=== PATIENT | female | born 1965 | race Caucasian/White ===

== ENCOUNTER → 2017-11-21 16:46 | Outpatient (CLI) | payer OTHER, SELFPAY ==
--- NOTE | 2017-11-21 16:51 | BI_ITS ---
MAMMOGRAPHY - BILATERAL SCREENING REASON FOR EXAM: Female, 52 years old. Routine annual screening examination. PERTINENT HISTORY: Non-contributory. Remote right stereotactic breast biopsy. TECHNIQUE: Digital bilateral breast imani (3D mammographic acquisition) in the CC and MLO projections. 2-D mediolateral oblique (MLO) and craniocaudad (CC) views of both breasts were obtained. CAD: Full Field Digital Mammography with Computer Added Detection was performed. COMPARISON: Comparison is made with prior study dated May 17, 2016 and February 19, 2015. FINDINGS: Breast Composition: The breasts are heterogeneously dense, which may obscure small masses. There are no dominant masses or suspicious calcifications. A tissue clip marker is seen in the medial retroareolar region of the right breast. No other significant abnormalities are identified. There has been no significant change since the prior study. BI/SCREENING MAMM (CAD), BILAT IMPRESSION: Stable bilateral screening mammogram. Yearly follow-up mammogram recommended. (A) ASSESSMENT CATEGORY: BIRADS Category 2: Benign. A letter regarding these results will be sent to the patient by the facility within 30 days. Approximately 10% of breast cancers are not detected by mammography. A normal mammogram should not delay biopsy of a clinically suspicious abnormality. [id number] Electronically Signed: Felix Sanchez MD at 8:18 EDT Tel [phone], Service support ,
== END ==
PROVIDERS: Family Provider Family Medicine; PCP Family Medicine
DX: Z12.31 Encounter for screening mammogram for malignant neoplasm of breast (principal)
CPT/HCPCS: 77063; 77067

== ENCOUNTER → 2019-01-25 | Outpatient (CLI) | payer OTHER, SELFPAY ==
--- NOTE | 2019-01-25 08:03 | BI_ITS ---
MAMMOGRAPHY - BILATERAL SCREENING REASON FOR EXAM: Female, 53 years old. Routine annual screening examination. PERTINENT HISTORY: Non-contributory. Remote prior right stereotactic breast biopsies. TECHNIQUE: Digital bilateral breast demetra (3D mammographic acquisition) in the CC and MLO projections. 2-D mediolateral oblique (MLO) and craniocaudad (CC) views of both breasts were obtained. CAD: Full Field Digital Mammography with Computer Added Detection was performed. COMPARISON: Comparison is made with prior study dated November 21, 2017 and May 17, 2016. FINDINGS: Breast Composition: The breasts are heterogeneously dense, which may obscure small masses. There are no dominant masses or suspicious calcifications. A tissue clip marker is seen in the medial retroareolar region of the right breast. No other significant abnormalities are identified. There has been no significant change since the prior study. BI/SCREEN MAMM (CAD) W/DEMETRA BILAT IMPRESSION: Stable bilateral screening mammogram. Yearly follow-up mammogram recommended. (A) ASSESSMENT CATEGORY: BIRADS Category 1: Negative. A letter regarding these results will be sent to the patient by the facility within 30 days. Approximately 10% of breast cancers are not detected by mammography. A normal mammogram should not delay biopsy of a clinically suspicious abnormality. [id number] Electronically Signed: Felix Sanchez, at 9:39 EDT , Service support ,
== END | disposition home or self-care (01) ==
PROVIDERS: Family Provider Family Medicine; PCP Family Medicine
DX: Z12.31 Encounter for screening mammogram for malignant neoplasm of breast (principal)
CPT/HCPCS: 77063; 77067

== ENCOUNTER → 2021-12-21 | Outpatient (CLI) | payer OTHER, SELFPAY ==
--- NOTE | 2021-12-21 12:00 | BI_ITS ---
MAMMOGRAPHY - BILATERAL SCREENING REASON FOR EXAM: Female, 56 years old. Routine annual screening examination. PERTINENT HISTORY: Non-contributory. History of prior right stereotactic breast biopsies. TECHNIQUE: Digital bilateral breast demetra (3D mammographic acquisition) in the CC and MLO projections. 2-D mediolateral oblique (MLO) and craniocaudad (CC) views of both breasts were obtained. CAD: Full Field Digital Mammography with Computer Added Detection was performed. COMPARISON: Comparison is made with prior examination dated 10/19/2020 and 01/25/2019. FINDINGS: Breast Composition: The breasts are heterogeneously dense, which may obscure small masses. There are no dominant masses or suspicious calcifications. A tissue clip marker is once again seen in the retroareolar region of the right breast. No other significant abnormalities are identified. There has been no significant change since the prior study. BI/SCRN MAMM (CAD)W/DEMETRA BILAT IMPRESSION: Stable bilateral screening mammogram. Yearly follow-up mammogram recommended. (A) ASSESSMENT CATEGORY: BIRADS Category 2: Benign. A letter regarding these results will be sent to the patient by the facility within 30 days. Approximately 10% of breast cancers are not detected by mammography. A normal mammogram should not delay biopsy of a clinically suspicious abnormality. [id number] Electronically Signed: Felix Sanchez MD at 13:12 EDT ,
== END | disposition home or self-care (01) ==
LOC: OPBI 11:58
PROVIDERS: PCP Family Medicine; Referring Provider Obstetrics & Gynecology; Visit Provider Obstetrics & Gynecology
DX: Z12.31 Encounter for screening mammogram for malignant neoplasm of breast (principal)
CPT/HCPCS: 77063; 77067

== ENCOUNTER → 2022-12-30 | Outpatient (CLI) | payer OTHER, SELFPAY ==
--- NOTE | 2022-12-30 07:44 | BI_ITS ---
MAMMOGRAPHY - BILATERAL SCREENING REASON FOR EXAM: Female, 57 years old. Routine annual screening examination. PERTINENT HISTORY: Non-contributory. History of prior right stereotactic breast biopsies. TECHNIQUE: Digital bilateral breast demetra (3D mammographic acquisition) in the CC and MLO projections. 2-D mediolateral oblique (MLO) and craniocaudad (CC) views of both breasts were obtained. CAD: Full Field Digital Mammography with Computer Added Detection was performed. COMPARISON: Comparison is made with prior study dated December 21, 2021 and January 25, 2019. FINDINGS: Breast Composition: The breasts are heterogeneously dense, which may obscure small masses. There are no dominant masses or suspicious calcifications. A tissue clip marker is once again seen in the medial retroareolar region of the right breast. No other significant abnormalities are identified. There has been no significant change since the prior study. BI/SCRN MAMM (CAD)W/DEMETRA BILAT IMPRESSION: Stable bilateral screening mammogram. Yearly follow-up mammogram recommended. (A) ASSESSMENT CATEGORY: BIRADS Category 2: Benign. A letter regarding these results will be sent to the patient by the facility within 30 days. Approximately 10% of breast cancers are not detected by mammography. A normal mammogram should not delay biopsy of a clinically suspicious abnormality. [id number] Electronically Signed: Felix Sanchez MD at 9:18 EDT ,
== END | disposition home or self-care (01) ==
LOC: OPBI 07:41
PROVIDERS: PCP Family Medicine; Referring Provider Obstetrics & Gynecology; Visit Provider Obstetrics & Gynecology
DX: Z12.31 Encounter for screening mammogram for malignant neoplasm of breast (principal)
CPT/HCPCS: 77063; 77067

== ENCOUNTER → 2024-07-01 | Outpatient (CLI) | payer OTHER, SELFPAY ==
--- NOTE | 2024-07-01 15:38 | BI_ITS ---
MAMMOGRAPHY - BILATERAL SCREENING REASON FOR EXAM: Female, 58 years old. Routine annual screening examination. PERTINENT HISTORY: Non-contributory. Prior right stereotactic breast biopsies. TECHNIQUE: Digital bilateral breast demetra (3D mammographic acquisition) in the CC and MLO projections. 2-D mediolateral oblique (MLO) and craniocaudad (CC) views of both breasts were obtained. CAD: Full Field Digital Mammography with Computer Added Detection was performed. COMPARISON: Comparison is made with prior study dated December 30, 2022 and December 21, 2021. FINDINGS: Breast Composition: The breasts are heterogeneously dense, which may obscure small masses. There are no dominant masses or suspicious calcifications. A tissue clip marker is once again seen in the medial retroareolar region of the right breast. No other significant abnormalities are identified. There has been no significant change since the prior study. BI/SCRN MAMM (CAD)W/DEMETRA BILAT IMPRESSION: Stable bilateral screening mammogram. Yearly follow-up mammogram recommended. (A) ASSESSMENT CATEGORY: BIRADS Category 2: Benign. A letter regarding these results will be sent to the patient by the facility within 30 days. Approximately 10% of breast cancers are not detected by mammography. A normal mammogram should not delay biopsy of a clinically suspicious abnormality. [id number] Electronically Signed: Felix Sanchez MD at 8:40 EST ,
== END | disposition home or self-care (01) ==
LOC: OPBI 15:36
PROVIDERS: PCP Family Medicine; Referring Provider Obstetrics & Gynecology; Visit Provider Family Medicine
DX: Z12.31 Encounter for screening mammogram for malignant neoplasm of breast (principal)
CPT/HCPCS: 77063; 77067

== ENCOUNTER → 2025-07-11 | Outpatient (CLI) | payer OTHER, SELFPAY ==
--- OUTSIDE RECORDS SUMMARY | 2025-07-11 07:30 | XMS RPT_ITS | CCD ---
Author Organization [facility] Care Team Providers Care Channel Manager Name Role Phone ISRAEL CARREON Unavailable Unavailable ISRAEL CARREON Unavailable Unavailable ISRAEL CARREON Unavailable Unavailable Israel Carreon Unavailable Unavailab SANGEETHA Soria Unavailable Unavailable TERRA MENDOZA Unavailable Unavailable CHARLES MAGALLON Attending Unavailable IMCA Referring Unavailable Terra Mendoza Primary Care Unavailable CHARLES MAGALLON Admitting Unavailable CHARLES MAGALLON Attending Unavailable Terra Mendoza Primary Care Unavailable CHARLES MAGALLON Admitting Unavailable CHARLES MAGALLON Attending Unavailable Terra Mendoza Primary Care Unavailable SARAHY ALLEN Attending Unavailable Terra Mendoza Referring Unavailable ElderTerra finley Primary Care Unavailable CHARLES MAGALLON Attending Unavailable Terra Mendoza Referring Unavailable ElderTerra finley Primary Care Unavailable Terra Mendoza Referring Unavailable Terra Mendoza Primary Care Unavailable CHARLES MAGALLON Attending Unavailable Terra Mendoza Referring Unavailable ElderTerra finley Primary Care Unavailable Terra Mendoza Referring Unavailable ElderTerra finley Primary Care Unavailable CHARLES MAGALLON Attending Unavailable Terra Mendoza Referring Unavailable ElderbrockTerra Primary Care Unavailable CHARLES MAGALLON Referring Unavailable Terra Mendoza Primary Care Unavailable CHARLES MAGALLON Admitting Unavailable CHARLES MAGALLON Attending Unavailable Terra Mendoza Primary Care Unavailable Terra Mendoza Referring Unavailable Terra Mendoza Primary Care Unavailable SARAHY ALLEN Attending Unavailable Terra Mendoza Referring Unavailable Terra Mendoza Primary Care Unavailable Terra Mendoza MD Primary Care Provider [phone] Terra Mendoza MD Primary Care Provider Terra Mendoza MD Primary Care Provider Ranjit CLARIFIER.Iliana LITTLE Unavailable Scooter CLARIFIERALEX, Maurilio Unavailable Terra Mendoza Referring Unavailable Mel Telles Attending Unavailable Terra Mendoza Primary Care Unavailable Terra Mendoza Primary Care Unavailable Terra Mendoza Attending Unavailable Cande Gorman Referring Unavailable MAT CARDENASQUEHARIS Bray Referring Unavailable TERRA MENDOZA Primary Care Unavailable THERESA DACIA Asa Referring Unavailable TERRA MENDOZA Primary Care Unavailable THERESA DACIA A Attending Unavailable TERRA MENDOZA Primary Care Unavailable CANDE GORMAN Attending Unavailable TERRA MENDOZA Primary Care Unavailable Reji MORALES, Dr. Marvin Primary Care Physician Elfego MORALES, Dr. Leal Attending Physician Dr. Terra Mendoza MD Referring Provider [phone] Allergies Allergy Classification Reported Allergen(s) Allergy Type Date of Onset Reaction(s) Facility (15 sources) Contrast media; Translations: [CONTRAST DYE] Propensity to adverse reactions (disorder) 05-17-20 05 Anaphylaxis [facility] Repository (15 sources) HYDROcodone; Translations: [HYDROCODONE] Drug Allergy 07-27-19 19 Mental Status Change [facility] Repository (2 sources) Triiodobenzoic Acids Allergy to substance 11-23-19 23 [facility] (1 source) Iodinated Contrast Media Drug allergy (disorder) 04-25-20 25 [facility] Repository Medications Current Medications Medication Drug Class(es) Dates Sig (Normalized) Sig (Original) acetaminophen 325 mg oral capsule (13 sources) acetaminophen 32 5 mg cap Take 2 capsules by mouth as needed. Active Comment on above: Take 2 capsules by m outh as needed. ascorbic acid 500 mg chewable tablet (13 sources) Vitamin C take 500 mg by mouth once daily Ascorbic Acid 500 mg chew Take 500 mg by mouth once daily. Active Comment on above: Take 500 mg by mouth once daily. calcium ascorbate 500 mg oral tablet (1 source) Start: 04-25-2025 take 1 tablet by mouth once daily Ascorbate Calcium (Vitamin C) 500 mg tablet Active 500 mg PO daily April 25, 2025 12:00am Complies with drug therapy cephalexin 250 mg oral capsule (1 source) Cephalosporin Antibacterial Start: 04-25-2025 Cephalexin 250 mg capsule Active 250 mg PO .after intercourse 90 April 25, 2025 12:00am Complies with drug therapy cholecalciferol 0.025 mg oral capsule (13 sources) Vitamin D take 1 capsule by mouth once daily Cholecalciferol, Vitamin D3, 25 mcg (1,000 unit) cap Take 1,000 Units by mouth once daily. Active Comment on above: Take 1,000 Units by mouth once daily. cranberry preparation 400 mg oral capsule (4 sources) Non-Standardized Food Allergenic Extract, Non-Standardized Plant Allergenic Extract End: 12-21-2022 take 1 capsule by mouth once daily Cranberry 400 mg cap Take by mouth once daily. 0 12/21/2022 Discontinued (Other) take 1 capsule by mouth once john ly Cranberry 400 mg cap Take by mouth once daily. 0 Active Comment on above: Take by mouth once d aily. fluconazole 150 mg oral tablet (1 source) Azole Antifungal Start: 04-25-20 Fluconazole 150 mg tablet Active 150 mg PO Every 3 Days 2 April 25, 2025 12:00am take one tab, repeat 3 days later if needed Complies with drug therapy hydrOXYzine hydrochloride 25 mg oral tablet (3 sources) Antihistamine Start: 01-22-20 End: 04-21-20 take 1 tablet by mouth three times daily as needed hydrOXYzine HCl (ATARAX) 25 mg tablet Indications: JUD (generalized anxiety disorder) Take 1 tablet by mouth three times a day as needed. 90 tablet 2 01/22/2024 04/21/2024 Active ibuprofen 200 mg oral tablet (13 sources) Nonsteroidal Anti-inflammatory Drug take 1 tablet by mouth every six hours as needed ibuprofen (MOTRIN) 200 mg tablet Take 200 mg by mouth every 6 hours as needed. Active Comment on above: Take 200 mg by mouth every 6 hours as needed. Multivitamin capsule (13 sources) take 1 capsule by mouth once daily Multivitamin capsule Take 1 capsule by mouth once daily. Active take 1 capsule by mouth once john ly Multivitamin capsule Take 1 capsule by mouth once daily. 0 Active Comment on above: Take 1 capsule by [facility] once daily. Multivitamin With Iron tablet (1 source) Start: Multivitamin With Iron tablet Active 1 {tbl} PO daily April 25, 2025 12:00am Complies with drug therapy [place] 3-Lin-Nsf-Fish Oil (Fish Oil) 60-90-500 mg capsule (1 source) Start: 5 [place] 4-Nbo-Xdo-Fish Oil (Fish Oil) 60-90-500 mg capsule Active 1 NMA PO daily April 25, 2025 12:00am Complies with drug therapy Syufa-3-BPJ-EPA-Fish Oil 1,000 mg (120 mg-180 mg) cap (10 sources) take 1 capsule by mouth twice daily Ajrpn-0-JVL-EPA-Fish Oil 1,000 mg (120 mg-180 mg) cap Take 2 g by mouth twice daily. Active take 1 capsule by mouth twice da kortney Lilex-0-EUD-EPA-Fish Oil 1,000 mg (120 mg- 180 mg) cap Take 2 g by mouth twice daily. 0 Active Comment on above: Take 2 g by mouth tw ice daily. Completed/Discontinued Medications Medication Drug Class(es) Dates Sig (Normalized) Sig (Original) acetaminophen 325 mg / HYDROcodone bitartrate 5 mg oral tablet (3 sources) Opioid Agonist Start: 06-13-2016 End: 04-25-2025 Hydrocodone-Acetami nophen 1 TABLET tablet Discontinued 1 - 2 {tbl} PO EVERY 6 HOURS NEEDED as needed for Pain 12 June 13, 2016 4:14pm April 25, 2025 8:35am causes drowsiness Start: 06-13-2016 take 1 tablet by uli every six hours as needed Hydrocodone-Acetaminophen Active 1 - 2 TABLET PO EVERY 6 HOURS NEEDED June 13, 2016 4:14pm causes drowsiness Letdz-0-QZC-EPA-Fish Oil (FISH OIL) 1,000 mg (120 mg-180 mg) cap (3 sources) take 1 capsule by mouth twice daily Ippqj-3-MRQ-EPA-Fish Oil (FISH OIL) 1,000 mg (120 mg-180 mg) cap Take 2 g by mouth twice daily. 0 Active Comment on above: Take 2 g by mouth tw ice daily. phenazopyridine hydrochloride 200 mg oral tablet (6 sources) Start: 2020 End: 2021 take 1 tablet by mouth every eight hours as needed phenazopyridine (PYRIDIUM) 200 mg tablet Take 1 tablet by mouth three times daily as needed. 6 tablet 0 03/13/2021 12/21/2021 Discontinued Comment on above: Take 1 tablet by uli th three times daily as needed. Problems Active Problems Problem Classification Problem Date Documented Date Episodic/Chronic Anxiety disorders (2 sources) Generalized anxiety disorder; Translations: [Generalized anxiety disorder] 01-22-2024 Chronic Disorders of lipid metabolism (3 sources) Mixed hyperlipidemia; Translations: [Mixed hyperlipidemia] Onset: 04-28-2025 02-06-2024 Chronic Genitourinary symptoms and ill-defined conditions (20 sources) Female stress incontinence; Translations: [Stress incontinence (female) (male)] Onset: 05-21-2018 Resolved: 07-27-2018 07-20-2018 Chronic Menopausal disorders (2 sources) Atrophic vaginitis; Translations: [Postmenopausal atrophic vaginitis] 04-18-2025 Chronic Other connective tissue disease (1 source) Decrease in height; Translations: [Loss of height] 07-01-2024 Episodic Other diseases of bladder and urethra (2 sources) Overactive bladder; Translations: [Overactive bladder] 04-18-2025 Chronic Other ear and sense organ disorders (1 source) Impacted cerumen of bilateral ears; Translations: [Impacted cerumen, bilateral] Episodic Other screening for suspected conditions (not mental disorders or infectious disease) (17 sources) Patient encounter status; Translations: [Encounter for screening mammogram for malignant neoplasm of breast] Onset: 08-02-2024 Episodic Residual codes; unclassified (1 source) Postmenopausal state; Translations: [Asymptomatic menopausal state] 07-01-2024 Episodic Screening and history of mental health and substance abuse codes (2 sources) Encounter for screening examination for other mental health and behavioral disorders; Translations: [Encounter for screening for depression] Onset: 02-06-2025 Episodic Urinary tract infections (10 sources) Urinary tract infectious disease; Translations: [Urinary tract infection, site not specified] Onset: 09-27-2018 Resolved: 05-25-2019 05-25-2019 Episodic Urinary tract infections (2 sources) Urinary tract infections Onset: 09-27-2018 Past or Other Problems Problem Classification Problem Date Documented Date Episodic/Chronic Appendicitis and other appendiceal conditions (7 sources) Acute appendicitis; Translations: [Unspecified acute appendicitis] Onset: 10-08-2007 Resolved: 02-24-2011 02-24-2011 Episodic Cancer of cervix (15 sources) Atypical squamous cells of undetermined significance on cytologic smear of cervix (ASC-US); Translations: [Cervical atypism] Onset: 03-02-2018 10-07-2019 Episodic Other diseases of kidney and ureters (13 sources) Disorder of kidney and/or ureter; Translations: [Disorder of kidney and ureter, unspecified] Onset: 09-17-2007 09-17-2007 Episodic Other diseases of kidney and ureters (13 sources) Bilateral hydronephrosis ; Translations: [Unspecified hydronephrosis] Onset: 06-24-2016 06-24-2016 Episodic Results Test Name Value Interpretation Reference Range Facility LIPID PANEL, NONFASTINGon Cholesterol [Mass/Vol] 208 mg/dL High <200 [facility] Comment on above: Order Comment: Speci men Type: BLOOD SPECIMEN Ordering Facility: [facility] Address: [address] [place] [address] Result Comment: <200 mg/dL, Desirable 200-239 mg/dL, Borderline high >239 mg/dL, High Performed By: #### L IPNF #### [facility] CLIA [id number] [address] [place] [address] [place] HDL CHOLESTEROL, NF 63 mg/dL Normal >39 [facility] Comment on above: Order Comment: Speci men Type: BLOOD SPECIMEN Ordering Facility: [facility] Address: [address] [place] [address] Result Comment: 40-5 9 mg/dL, Acceptable >59 mg/dL, High: Negative risk factor for coronary heart disease <40 mg/dL, Low: Positive risk factor for coronary heart disease Performed By: #### L IPNF #### [facility] CLIA [id number] [address] [place] [address] [place] LDL CHOLESTEROL CALCULATED, NF 127 mg/dL High <100 [facility] Comment on above: Order Comment: Speci men Type: BLOOD SPECIMEN Ordering Facility: [facility] Address: [address] [place] [address] Result Comment: <100 mg/dL, Optimal 100-129 mg/dL, Near optimal/above optimal 130-159 mg/dL, Borderline high 160-189 mg/dL, High >189 mg/dL, Very high Secondary prevention optimal LDL Cholesterol levels are recommended to be <70 mg/dL LDL cholesterol is calculated using the Colin-NIH equation. Performed By: #### L IPNF #### [facility] CLIA [id number] [address] [place] [address] OF [facility] LDL/HDL RATIO, NF 2.02 mg/dL Normal <2.54 [facility] Comment on above: Order Comment: Jef portillo Type: BLOOD SPECIMEN Ordering Facility: [facility] Address: [address] [place] [address] Result Comment: Refe rence: 1. National Cholesterol Education Program ATP III Guideline At-A-Glance Quick Desk Reference: National Heart, Lung, and Blood Hawkins. National Institutes of Health. 2001: NIH Publication No. 01-3305. 2. An International Atherosclerosis Society position paper: global recommendations for the management of dyslipidemia: executive summary, Atherosclerosis. 2014: 232(2):410-413. Performed By: #### L IPNF #### [facility] CLIA [id number] [address] [place] [address] STATES [facility] NON HDL CHOL, NF 145 mg/dL High <130 [facility] Comment on above: Order Comment: Jef portillo Type: BLOOD SPECIMEN Ordering Facility: [facility] Address: [address] [place] [address] Result Comment: <130 mg/dL, Optimal 130-159 mg/dL, Near optimal/above optimal 160-189 mg/dL, Borderline high 190-219 mg/dL, High >219 mg/dL, Very high Secondary prevention optimal non HDL Cholesterol levels are recommended to be <100 mg/dL Performed By: #### L IPNF #### [facility] CLIA [id number] [address] [place] [address] OF [facility] T CHOL/HDL RATIO NF 3.30 mg/dL Normal <5.10 [facility] Comment on above: Order Comment: Speci men Type: BLOOD SPECIMEN Ordering Facility: [facility] Address: [address] [place] [address] Performed By: #### L IPNF #### [facility] CLIA [id number] [address] [place] [address] [place] TRIGLYCERIDES, NF 103 mg/dL Normal <150 [facility] Comment on above: Order Comment: Speci men Type: BLOOD SPECIMEN Ordering Facility: [facility] Address: [address] [place] [address] Result Comment: <150 mg/dL, Normal 150-199 mg/dL, Borderline high 200-499 mg/dL, High >499 mg/dL, Very high Performed By: #### L IPNF #### [facility] CLIA [id number] [address] [place] [address] [place] VLDL CHOLESTEROL, NF 18 mg/dL Normal <30 [facility] Comment on above: Order Comment: Speci men Type: BLOOD SPECIMEN Ordering Facility: [facility] Address: [address] [place] [address] Performed By: #### L IPNF #### [facility] CLIA [id number] [address] [place] [address] [place] Laboratory - Chemistry and C hemistry - challengeOrdered By: Mel Telles on 04-25-2025 Bilirubin Ql (U) Negative [facility] Glucose Ql (U) Negative [facility] Ketones Ql (U) Negative [facility] pH (U) 6 [pH] [facility] Specific gravity (U) [Rel density] 1.010 [facility] Urobilinogen (U) [Mass/Vol] 0.8569799 mg/dL [facility] Laboratory - Hematology and Cell countsOrdered By: Mel Telles on 04-25-2025 Hemoglobin Ql (U) Trace [facility] Laboratory - UrinalysisOrder ed By: Mel Telles on 04-25-2025 Nitrite Ql (U) Negative [facility] Protein Ql (U) Trace [facility] MR/Ysabel 04-25-2025 MR/GANGA [facility] [address], [address] [place] [address] OFFICE VISIT Date of Service: 04/25/25 MR#: [id number] Acct: [id number] Name: TAWANNA REYES Rep #: [id number] : 1965 Provider: Dr. Mel Garcia i, MD Age/Sex: 59/F Location: [facility] Status: Signed Intake Vital Signs 06/13/16 12:22 04/25/25 08:37 Height 5 ft 2 in 5 ft 2 in Weight: 130 lb BMI 23.8 BP 94/69 Pulse 61 Intake Visit Reasons: 12m chronic uti Chief Complaint: 12 month UTI follow up Home Health Manager Required: No Accompanied by: Self Is patient in pain?: No Allergies Iodinated Contrast Media Allergy (Verified 04/25/25 08:35) Hives Medications ???Medication ???Instructions ???Recorded ???Confirmed ???Type ascorbate calcium (vitamin C) 500 500 mg PO QDAY 04/25/25 04/25/25 History mg tablet cephalexin 250 mg capsule 250 mg PO .after intercourse #90 1 04/25/25 Rx caps fluconazole 150 mg tablet 150 mg PO Q3D #2 tabs 04/25/2505/10 Rx multivitamin with iron 1 tab PO QDAY 04/25/25 04/25/25 Hi story omega 8-ycl-fgt-fish oil 60 mg-90 1 cap PO QDAY 04/25/25 04/25/25 H istory mg-500 mg capsule (Fish Oil) Nurse's Note: No uti since last ov, patient reports she is doing well. [facility] Medical History Ruptured tubal Surgical History History of bladder surgery History of appendectomy H/O dilation and curettage Social History Smoking Status: Never smoker alcohol intake: current substance use type: does not use what type of physical activity do you participate in: none do you feel safe at home: Yes HPI HPI Urology Chief Complaint: 12 month UTI follow up Details: TAWANNA REYES, is a 59 F. She is here for follow up urinary tract infections. She has had no infections since the last visit. She has not had hematuria since her last visit. She is taking the following prevention: none. When she feels like an infection may be starting, she has left over antibiotics and she takes one. It is after intercourse. This has worked really well for her. We discussed estrogen cream again today. She does not want to do this. ROS Const Constitutional: No chills, fatigue, fever(s), headache(s), night sweats, weakness, weight change, abnormal sleep pattern or change in appetite Eyes Eyes: No change in vision ENT ENT: No headache(s) or dry mouth Resp Respiratory: No cough, chest congestion, shortness of breath or wheezing Cardio Cardiology: Positive for other (No chest pain.); No shortness of breath, irregular heart rhythm or lightheadedness Gastro GI: Positive for other (No nausea.); No abdominal pain, change in bowel habits, constipation, diarrhea or vomiting Musc Musculoskeletal: No abnormal gait Skin Skin: No yellowing of the eye, lesions, itchy eyes, rash or skin ulcer Neuro Neurology: No abnormal gait, confusion, dizziness, weakness, headache(s) or memory loss Psych Psychiatric: No abnormal sleep pattern, No change in appetite, No confusion and No memory loss Endo Endocrine: No fatigue, increased thirst/drinking or weight change Aller/Imm Allergy/Immunologic: No itchy eyes or wheezing Evin/Lymp Hematologic/Lymphati c: No easy bleeding, easy bruising or enlarged lymph nodes Exam Const General: cooperative, healthy appearing, comfortable and no acute distress HENMT Head: normocephalic and atraumatic Ears: hearing grossly normal bilaterally and external ears normal Nose: external nose normal Eyes General: appearance normal, both eyes and all related structures Neck Neck: normal visual inspection and trachea midline Chest Chest palpation inspection: normal inspection of the chest Resp Effort Inspection: normal respiratory effort, able to speak in complete sentences and symmetric chest movement Cardio Rate: regular rate GI Inspection: normal to inspection Palpation: soft and nontender General: No CVA tenderness Skin General: no rashes or lesions noted Neuro General: patient alert, patient awake, patient oriented x3 and CN's II-XI intact bilaterally Extrem General: normal to inspection Psych Appearance: grossly normal and well kempt Mental Status: mental status grossly normal Results POC Urinalysis w/Micro Office Urine Color Last Edit by Ludmila Vail on 04/25/25 08:44 Office Urine Clarity Last Edit by Ludmila Vail on 04/25/25 08:44 Office Urine Glucose Negative Last Edit by Ludmila Vail on 04/25/25 08:44 Office Urine Ketones Negative Last Edit by Ludmila Vail on 04/25/25 08:44 Office Urine Bilirubin Negative Last Edit by Ludmila Vail on 04/25/25 08:44 Office (more content not included)... Normal [facility] No Panel InformationOrdered By: Mel Telles on 04-25-2025 Urine Bacteria None Seen [facility] Urine Leukocytes Negatve [facility] Urine Microscopic RBC None Seen [facility] Urine Microscopic WBC None Seen [facility] Urine Non-Hemolyzed Blood Negative [facility] CBC W Auto Differential pane l (Bld)on 02-06-2025 Basophils (Bld) [#/Vol] 0.1 10*3/uL [facility] Basophils/100 WBC (Bld) 1.5 % [facility] Differential cell count method Nom (Bld) Auto [facility] Eosinophils (Bld) [#/Vol] 0.15 10*3/uL [facility] Eosinophils/100 WBC (Bld) 2.2 % [facility] Erythrocyte distribution width (RBC) [Ratio] 13.4 % 11.5 - 15.0 % [facility] Hematocrit (Bld) [Volume fraction] 43 % 36.0 - 46.0 % [facility] Hemoglobin (Bld) [Mass/Vol] 14.1 g/dL 11.5 - 15.5 g/dL [facility] Immature granulocytes (Bld) [#/Vol] [facility] Immature granulocytes/100 WBC (Bld) 0.1 % [facility] Lymphocytes (Bld) [#/Vol] 2.99 10*3/uL [facility] Lymphocytes/100 WBC (Bld) 44.2 % [facility] MCH (RBC) [Entitic mass] 28.4 pg 26.0 - 34.0 pg [facility] MCHC (RBC) [Mass/Vol] 32.8 g/dL 30.5 - 36.0 g/dL [facility] MCV (RBC) [Entitic vol] 86.5 fL 80.0 - 100.0 fL [facility] Monocytes (Bld) [#/Vol] 0.6 10*3/[facility] Monocytes/100 WBC (Bld) 8.9 % [facility] Neutrophils (Bld) [#/Vol] 2.91 10*3/uL [facility] Neutrophils/100 WBC (Bld) 43.1 % [facility] Nucleated RBC (Bld) [#/Vol] NINF [facility] Nucleated RBC/100 WBC (Bld) [Ratio] 0 % /100 WBC [facility] Platelet mean volume (Bld) [Entitic vol] 11.3 fL 9.0 - 12.7 fL [facility] Platelets (Bld) [#/Vol] 295 10*3/uL [facility] RBC (Bld) [#/Vol] 4.97 10*6/uL 3.90 - 5.2 0 m/uL [facility] WBC (Bld) [#/Vol] 6.76 10*3/uL [facility] Basophils (Bld) [#/Vol] 0.10 10*3/uL Normal <0.11 [facility] Comment on above: Order Comment: Speci men Type: BLOOD SPECIMEN Ordering Facility: [facility] Address: [address] [place] [address] Performed By: #### 5 7021-8 #### [facility] CLIA [id number] [address] [place] [address] [place] Basophils/100 WBC (Bld) 1.5 % Normal [facility] Comment on above: Order Comment: Speci men Type: BLOOD SPECIMEN Ordering Facility: [facility] Address: [address] [place] [address] Performed By: #### 5 7021-8 #### [facility] CLIA [id number] [address] [place] [address] [place] Differential cell count method Nom (Bld) Auto Normal [facility] Comment on above: Order Comment: Speci men Type: BLOOD SPECIMEN Ordering Facility: [facility] Address: [address] [place] [address] Performed By: #### 5 [id number] #### [facility] CLIA [id number] [address] [place] [address] [place] Eosinophils (Bld) [#/Vol] 0.15 10*3/uL Normal <0.46 [facility] Comment on above: Order Comment: Speci men Type: BLOOD SPECIMEN Ordering Facility: [facility] Address: [address] [place] [address] Performed By: #### 5 7021-8 #### [facility] CLIA [id number] [address] [place] [address] [place] Eosinophils/100 WBC (Bld) 2.2 % Normal [facility] Comment on above: Order Comment: Speci men Type: BLOOD SPECIMEN Ordering Facility: [facility] Address: [address] [place] [address] Performed By: #### 5 7021-8 #### [facility] CLIA [id number] [address] [place] [address] [place] Erythrocyte distribution width (RBC) [Ratio] 13.4 % Normal 11.5-15.0 [facility] Comment on above: Order Comment: Speci men Type: BLOOD SPECIMEN Ordering Facility: [facility] Address: [address] [place] [address] Performed By: #### 5 7021-8 #### [facility] CLIA [id number] [address] [place] [address] [place] Hematocrit (Bld) [Volume fraction] 43.0 % Normal 36.0-46.0 [facility] Comment on above: Order Comment: Speci men Type: BLOOD SPECIMEN Ordering Facility: [facility] Address: [address] [place] [address] Performed By: #### 5 7021-8 #### [facility] CLIA [id number] [address] [place] [address] [place] Hemoglobin (Bld) [Mass/Vol] 14.1 g/dL Normal 11.5-15.5 [facility] Comment on above: Order Comment: Speci men Type: BLOOD SPECIMEN Ordering Facility: [facility] Address: [address] [place] [address] Performed By: #### 5 7021-8 #### [facility] CLIA [id number] [address] [place] [address] [place] Immature granulocytes (Bld) [#/Vol] 10*3/uL Normal <0.10 [facility] Comment on above: Order Comment: Speci men Type: BLOOD SPECIMEN Ordering Facility: [facility] Address: [address] [place] [address] Performed By: #### 5 7021-8 #### [facility] CLIA [id number] [address] [place] [address] [place] Immature granulocytes/100 WBC (Bld) 0.1 % Normal [facility] Comment on above: Order Comment: Speci men Type: BLOOD SPECIMEN Ordering Facility: [facility] Address: [address] [place] [address] Performed By: #### 5 7021-8 #### [facility] CLIA [id number] [address] [place] [address] [place] Lymphocytes (Bld) [#/Vol] 2.99 10*3/uL Normal 1.00-4.00 [facility] Comment on above: Order Comment: Speci men Type: BLOOD SPECIMEN Ordering Facility: [facility] Address: [address] [place] [address] Performed By: #### 5 7021-8 #### [facility] CLIA [id number] [address] [place] [address] [place] Lymphocytes/100 WBC (Bld) 44.2 % Normal [facility] Comment on above: Order Comment: Speci men Type: BLOOD SPECIMEN Ordering Facility: [facility] Address: [address] [place] [address] Performed By: #### 5 7021-8 #### [facility] CLIA [id number] [address] [place] [address] [place] MCH (RBC) [Entitic mass] 28.4 pg Normal 26.0-34.0 [facility] Comment on above: Order Comment: Speci men Type: BLOOD SPECIMEN Ordering Facility: [facility] Address: [address] [place] [address] Performed By: #### 5 7021-8 #### [facility] CLIA [id number] [address] [place] [address] [place] MCHC (RBC) [Mass/Vol] 32.8 g/dL Normal 30.5-36.0 [facility] Comment on above: Order Comment: Speci men Type: BLOOD SPECIMEN Ordering Facility: [facility] Address: [address] [place] [address] Performed By: #### 5 7021-8 #### [facility] CLIA [id number] [address] [place] [address] [place] MCV (RBC) [Entitic vol] 86.5 fL Normal 80.0-100.0 [facility] Comment on above: Order Comment: Speci men Type: BLOOD SPECIMEN Ordering Facility: [facility] Address: [address] [place] [address] Performed By: #### 5 7021-8 #### [facility] CLIA [id number] [address] [place] [address] [place] Monocytes (Bld) [#/Vol] 0.60 10*3/uL Normal <0.87 [facility] Comment on above: Order Comment: Speci men Type: BLOOD SPECIMEN Ordering Facility: [facility] Address: [address] [place] [address] Performed By: #### 5 7021-8 #### [facility] CLIA [id number] [address] [place] [address] [place] Monocytes/100 WBC (Bld) 8.9 % Normal [facility] Comment on above: Order Comment: Speci men Type: BLOOD SPECIMEN Ordering Facility: [facility] Address: [address] [place] [address] Performed By: #### 5 7021-8 #### [facility] CLIA [id number] [address] [place] [address] [place] Neutrophils (Bld) [#/Vol] 2.91 10*3/uL Normal 1.45-7.50 [facility] Comment on above: Order Comment: Speci men Type: BLOOD SPECIMEN Ordering Facility: [facility] Address: [address] [place] [address] Performed By: #### 5 7021-8 #### [facility] CLIA [id number] [address] [place] [address] [place] Neutrophils/100 WBC (Bld) 43.1 % Normal [facility] Comment on above: Order Comment: Speci men Type: BLOOD SPECIMEN Ordering Facility: [facility] Address: [address] [place] [address] Performed By: #### 5 7021-8 #### [facility] CLIA [id number] [address] [place] [address] [place] Nucleated RBC (Bld) [#/Vol] 10*3/uL Normal <0.01 [facility] Comment on above: Order Comment: Speci men Type: BLOOD SPECIMEN Ordering Facility: [facility] Address: [address] [place] [address] Performed By: #### 5 7021-8 #### [facility] CLIA [id number] [address] [place] [address] [place] Nucleated RBC/100 WBC (Bld) [Ratio] 0.0 /100 WBC Normal [facility] Comment on above: Order Comment: Speci men Type: BLOOD SPECIMEN Ordering Facility: [facility] Address: [address] [place] [address] Performed By: #### 5 7021-8 #### [facility] CLIA [id number] [address] [place] [address] [place] Platelet mean volume (Bld) [Entitic vol] 11.3 fL Normal 9.0-12.7 [facility] Comment on above: Order Comment: Speci men Type: BLOOD SPECIMEN Ordering Facility: [facility] Address: [address] [place] [address] Performed By: #### 5 7021-8 #### [facility] CLIA [id number] [address] [place] [address] [place] Platelets (Bld) [#/Vol] 295 10*3/uL Normal 150-400 [facility] Comment on above: Order Comment: Speci men Type: BLOOD SPECIMEN Ordering Facility: [facility] Address: [address] [place] [address] Performed By: #### 5 7021-8 #### [facility] CLIA [id number] [address] [place] [address] [place] RBC (Bld) [#/Vol] 4.97 10*6/uL Normal 3.90-5.20 [facility] Comment on above: Order Comment: Speci men Type: BLOOD SPECIMEN Ordering Facility: [facility] Address: [address] [place] [address] Performed By: #### 5 7021-8 #### [facility] CLIA [id number] [address] [place] [address] [place] WBC (Bld) [#/Vol] 6.76 10*3/uL Normal 3.70-11.00 [facility] Comment on above: Order Comment: Speci men Type: BLOOD SPECIMEN Ordering Facility: [facility] Address: [address] [place] [address] Performed By: #### 5 7021-8 #### [facility] CLIA [id number] [address] [place] [address] [facility] CNOVon 02-06-2025 CNOV Office Visit (FAMPWS) TAWANNA REYES ([id number]) 1965 F Date Time Provider Department 02/06/25 10:00 AM DACIA CARDENAS During your visit today, we recorded the following information about you: Pulse Respiration Blood pressure Weight 57/minute 12/minute 102/64 61.9 kg Height 1.58 m Dacia Cardenas APRN.CNP 02/06/2025 10:31 AM Signed Chief Reason For Appointment Patient presents with: Physical Tawanna Reyes is a 59 year old female who presents for annual exam. Last office visit date: 02/06/2024 Accompanied By self only Have you had any critical events, hospital stays, ER visits, surgeries or procedures since your last visit here in our office: No Specialists/Other Healthcare Providers Seen: Patient Care Team: Terra Mendoza MD as PCP - General Maurilio Helms APRN.CNP as Book Jacket Cover Machine Operator (Family Medicine) Concerns today: None HPI Wellness visit Tawanna Reyes is a 59-year-old female presenting for an annual wellness visit, with additional concerns about low heart rate and elevated magnesium levels. Annual Wellness Exam: - Denies recent weight loss or gain, fever, chills, headaches, changes in hearing or vision, neck swelling, dyspnea, cough, wheezing, chest pain, leg swelling, palpitations, orthopnea, nausea, emesis, diarrhea, constipation, dysuria, hematuria, joint pain, rashes, itching, excessive thirst, syncope, seizures, tremors, or suicidal ideation. - No hospitalizations, ER visits, surgeries, or procedures in the past year. - History of anxiety; previously prescribed medication for anxiety, used for about a week with good effect, then discontinued. - History of allergies. - Tends to get impacted cerumen. - No recent mammogram; usually scheduled in June with gynecological visit. Bradycardia: - Resting heart rate reportedly around 60 bpm. - Concerns about whether this heart rate is too low. - Participates in high-intensity interval training at [employer]. - Reports difficulty elevating heart rate during exercise compared to peers. - Engages in 28-minute treadmill sessions, primarily power walking with occasional jogging to increase heart rate. - Heart rate reportedly decreases rapidly post-exercise. Hypermagnesemia: - Recent lab results showed elevated magnesium levels. - Consumes nuts and peanut butter; has reduced nut intake after reading about magnesium content. Active Problems ACTIVE PROBLEM LIST Mary (Stress Urinary Incontinence, Female) - 07/20/2018 Comment: Added automatically from request for surgery [id number] Atypical Squamous Cells of Undetermined Significance On Cytologic Smear of Cervix (Asc-Us) - 03/02/2018 Hydronephrosis, Bilateral - 06/24/2016 Unspecified Disorder of Kidney and Ureter - 09/17/2007 Comment: UPJ obstruction ROS: Constitutional: (?) weight loss, (?) weight gain, (?) fever, (?) chills Head: (?) headache Eyes: (?) visual changes Ears/Nose/Mouth/Thro at: (?) hearing changes Neck: (?) neck lumps, (?) neck swelling Cardiovascular: (?) chest pain, (?) palpitations, (?) lower extremity swelling, (?) orthopnea Respiratory: (?) dyspnea, (?) cough, (?) wheezing PAST MEDICAL HISTORY Diagnosis Date Snoring Stress incontinence of urine 07/16/2018 UPJ obstruction, congenital bilateral R>L Urinary tract infection with hematuria 09/27/2018 PAST SURGICAL HISTORY Procedure Laterality Date COLONOSCOPY FLX DX W/COLLJ SPEC WHEN PFRMD 01/25/2018 Colonoscopy CYSTOSCOPY 07/13/2018 with bladder sling placement; excision of sling 07/27/18 DILATION AND CURETTAGE DXAND/THER NONOBSTETRIC Dilation AND curettage, x 2 LAPAROSCOPIC APPENDECTOMY 09/17/07 PAST SURGICAL HISTORY OF 1998 Tubal , right salpingectomy Medication List Current Outpatient Medications Medication Sig Dispense Refill acetaminophen 325 mg cap Take 2 capsules by mouth as needed. Ascorbic Acid 500 mg chew Take 500 mg by mouth once daily. ibuprofen (MOTRIN) 200 mg tablet Take 200 mg by mouth every 6 hours as needed. Multivitamin capsule Take 1 capsule by mouth once daily. Ssqrl-7-EUD-EPA-Fish Oil 1,000 mg (120 mg-180 mg) cap Take 2 g by mouth twice daily. Cholecalciferol, Vitamin D3, 25 mcg (1,000 unit) cap Take 1,000 Units by mouth once daily. (Patient not taking: Reported on 02/06/2025) No current facility-administere d medications for this visit. Weight Summary: Weight Change: Body mass index is 24.78 kg/m?. Last Wt 02/06/25 : 61.9 kg (136 lb 6.4 oz) 07/01/24 : 63 kg (139 lb) 02/06/24 : 59.9 kg (132 lb) 01/22/24 : 59.9 kg (132 lb) 01/05/23 : 63 kg (139 lb) Physical Exam: General Appearance: well appearing, alert and oriented. Skin: no suspicious lesion, no rash, no open sores Head: normocephalic, no obvious masses, lesions, tenderness or abnormalities. Eyes: Anicteric sclera. Pupils are equally rou (more content not included)... Normal [facility] Comprehensive metabolic 2000 panelon 02-06-2025 Albumin [Mass/Vol] 4.6 g/dL Normal 3.9-4.9 [facility] Comment on above: Order Comment: Speci men Type: BLOOD SPECIMEN Ordering Facility: [facility] Address: [address] [place] [address] Performed By: #### 2 4323-8, LIPNF #### [facility] CLIA [id number] [address] [place] [address] [place] [address] [place] ALP [Catalytic activity/Vol] 95 U/L Normal 34-123 [facility] Comment on above: Order Comment: Speci men Type: BLOOD SPECIMEN Ordering Facility: [facility] Address: [address] [place] [address] Performed By: #### 2 4323-8, LIPNF #### [facility] CLIA [id number] [address] [place] [address] [place] ALT [Catalytic activity/Vol] 22 U/L Normal 7-38 [facility] Comment on above: Order Comment: Speci men Type: BLOOD SPECIMEN Ordering Facility: [facility] Address: [address] [place] [address] Performed By: #### 2 4323-8, LIPNF #### [facility] CLIA [id number] [address] [place] [address] [place] Anion gap [Moles/Vol] 12 mmol/L Normal 8-15 [facility] Comment on above: Order Comment: Speci men Type: BLOOD SPECIMEN Ordering Facility: [facility] Address: [address] [place] [address] Performed By: #### 2 4323-8, LIPNF #### [facility] CLIA [id number] [address] [place] [address] [place] AST [Catalytic activity/Vol] 22 U/L Normal 13-35 [facility] Comment on above: Order Comment: Speci men Type: BLOOD SPECIMEN Ordering Facility: [facility] Address: [address] [place] [address] Performed By: #### 2 4323-8, LIPNF #### [facility] CLIA [id number] [address] [place] [address] [place] Bilirubin [Mass/Vol] 0.4 mg/dL Normal 0.2-1.3 [facility] Comment on above: Order Comment: Speci men Type: BLOOD SPECIMEN Ordering Facility: [facility] Address: [address] [place] [address] Performed By: #### 2 4323-8, LIPNF #### [facility] CLIA [id number] [address] [place] [address] [place] Calcium [Mass/Vol] 9.5 mg/dL Normal 8.5-10.2 [facility] Comment on above: Order Comment: Speci men Type: BLOOD SPECIMEN Ordering Facility: [facility] Address: [address] [place] [address] Performed By: #### 2 4323-8, LIPNF #### [facility] CLIA [id number] [address] [place] [address] [place] Chloride [Moles/Vol] 102 mmol/L Normal 98-107 [facility] Comment on above: Order Comment: Speci men Type: BLOOD SPECIMEN Ordering Facility: [facility] Address: [address] [place] [address] Performed By: #### 2 4323-8, LIPNF #### [facility] CLIA [id number] [address] [place] [address] [place] CO2 [Moles/Vol] 24 mmol/L Normal 22-30 [facility] Comment on above: Order Comment: Speci men Type: BLOOD SPECIMEN Ordering Facility: [facility] Address: [address] [place] [address] Performed By: #### 2 4323-8, LIPNF #### [facility] CLIA [id number] [address] [place] [address] [place] Creatinine [Mass/Vol] 0.80 mg/dL Normal 0.58-0.96 [facility] Comment on above: Order Comment: Speci men Type: BLOOD SPECIMEN Ordering Facility: [facility] Address: [address] [place] [address] Performed By: #### 2 4323-8, LIPNF #### [facility] CLIA [id number] [address] [place] [address] [place] eGFRcr SerPlBld CKD-EPI 2020 84 mL/min/1.73m??? Normal >=60 [facility] Comment on above: Order Comment: Jef portillo Type: BLOOD SPECIMEN Ordering Facility: [facility] Address: [address] [place] [address] Result Comment: Stefania mated Glomerular Filtration Rate (eGFR) is calculated using the 2020 CKD-EPI creatinine equation. This equation utilizes serum creatinine, sex, and age as parameters. The creatinine assay has traceable calibration to isotope dilution-mass spectrometry. Refer to KDIGO guidelines for clinical interpretation. In patients with unstable renal function, e.g. those with acute kidney injury, the eGFR may not accurately reflect actual GFR. Performed By: #### 2 4323-8, LIPNF #### [facility] CLIA [id number] [address] [place] [address] [place] Glucose [Mass/Vol] 93 mg/dL Normal 74-99 [facility] Comment on above: Order Comment: Jef portillo Type: BLOOD SPECIMEN Ordering Facility: [facility] Address: [address] [place] [address] Result Comment: The [place] Diabetes Association (ADA) provides guidance for cutoff values for fasting glucose and random glucose. The ADA defines fasting as no caloric intake for at least 8 hours. Fasting plasma glucose results between 100 to 125 mg/dL indicate increased risk for diabetes (prediabetes). Fasting plasma glucose results greater than or equal to 126 mg/dL meet the criteria for diagnosis of diabetes. In the absence of unequivocal hyperglycemia, results should be confirmed by repeat testing. In a patient with classic symptoms of hyperglycemia or hyperglycemic crisis, random plasma glucose results greater than or equal to 200 mg/dL meet the criteria for diagnosis of diabetes. Reference: Standards of Medical Care in Diabetes 2016, British Diabetes Association. Diabetes Care. 2016.39(Suppl 1). Performed By: #### 2 4323-8, LIPNF #### [facility] CLIA [id number] [address] [place] [address] [place] Potassium [Moles/Vol] 4.3 mmol/L Normal 3.7-5.1 [facility] Comment on above: Order Comment: Jef portillo Type: BLOOD SPECIMEN Ordering Facility: [facility] Address: [address] [place] [address] Performed By: #### 2 4323-8, LIPNF #### [facility] CLIA [id number] [address] [place] [address] [place] Protein [Mass/Vol] 7.1 g/dL Normal 6.3-8.0 [facility] Comment on above: Order Comment: Speci men Type: BLOOD SPECIMEN Ordering Facility: [facility] Address: [address] [place] [address] Performed By: #### 2 4323-8, LIPNF #### [facility] CLIA [id number] [address] [place] [address] [place] Sodium [Moles/Vol] 138 mmol/L Normal 136-144 [facility] Comment on above: Order Comment: Speci men Type: BLOOD SPECIMEN Ordering Facility: [facility] Address: [address] [place] [address] Performed By: #### 2 4323-8, LIPNF #### [facility] CLIA [id number] [address] [place] [address] [place] Urea nitrogen [Mass/Vol] 12 mg/dL Normal 7-21 [facility] Comment on above: Order Comment: Speci men Type: BLOOD SPECIMEN Ordering Facility: [facility] Address: [address] [place] [address] Performed By: #### 2 4323-8, LIPNF #### [facility] CLIA [id number] [address] [place], [place] [address] [place] LIPID PANEL, NONFASTINGon Cholesterol [Mass/Vol] 259 mg/dL High <200 [facility] Comment on above: Order Comment: Speci men Type: BLOOD SPECIMEN Ordering Facility: [facility] Address: [address] [place] [address] Result Comment: <200 mg/dL, Desirable 200-239 mg/dL, Borderline high >239 mg/dL, High Performed By: #### 2 4323-8, LIPNF #### [facility] CLIA [id number] [address] [place] [address] [place] HDL CHOLESTEROL, NF 59 mg/dL Normal >39 [facility] Comment on above: Order Comment: Jef portillo Type: BLOOD SPECIMEN Ordering Facility: [facility] Address: [address] [place] [address] Result Comment: 40-5 9 mg/dL, Acceptable >59 mg/dL, High: Negative risk factor for coronary heart disease <40 mg/dL, Low: Positive risk factor for coronary heart disease Performed By: #### 2 4323-8, LIPNF #### [facility] CLIA [id number] [address] [place] [address] LDL CHOLESTEROL CALCULATED, NF 180 mg/dL High <100 [facility] Comment on above: Order Comment: Jef bandar Type: BLOOD SPECIMEN Ordering Facility: [facility] Address: [address] [place] [address] Result Comment: <100 mg/dL, Optimal 100-129 mg/dL, Near optimal/above optimal 130-159 mg/dL, Borderline high 160-189 mg/dL, High >189 mg/dL, Very high Secondary prevention optimal LDL Cholesterol levels are recommended to be <70 mg/dL LDL cholesterol is calculated using the Colin-NIH equation. Performed By: #### 2 4323-8, LIPNF #### [facility] CLIA [id number] [address] [place] [address] [place] LDL/HDL RATIO, NF 3.05 mg/dL High <2.54 [facility] Comment on above: Order Comment: Mymarlee portillo Type: BLOOD SPECIMEN Ordering Facility: [facility] Address: [address] [place] [address] Result Comment: Lemuel savage: 1. National Cholesterol Education Program ATP III Guideline At-A-Glance Quick Desk Reference: National Heart, Lung, and Blood Hawkins. National Institutes of Health. 2001: NIH Publication No. 01-3305. 2. An International Atherosclerosis Society position paper: global recommendations for the management of dyslipidemia: executive summary, Atherosclerosis. 2014: 232(2):410-413. Performed By: #### 2 4323-8, LIPNF #### [facility] CLIA [id number] [address] [place] [address] [place] NON HDL CHOL, NF 200 mg/dL High <130 [facility] Comment on above: Order Comment: Jef portillo Type: BLOOD SPECIMEN [facility] [facility] Address: [address] [place] [address] Result Comment: <130 mg/dL, Optimal 130-159 mg/dL, Near optimal/above optimal 160-189 mg/dL, Borderline high 190-219 mg/dL, High >219 mg/dL, Very high Secondary prevention optimal non HDL Cholesterol levels are recommended to be <100 mg/dL Performed By: #### 2 4323-8, LIPNF #### [facility] CLIA [id number] [address] [place] [address] OF [facility] T CHOL/HDL RATIO NF 4.39 mg/dL Normal <5.10 [facility] Comment on above: Order Comment: Jef portillo Type: BLOOD SPECIMEN Ordering Facility: [facility] Address: [address] [place] [address] Performed By: #### 2 4323-8, LIPNF #### [facility] CLIA [id number] [address] [place] [address] OF [place] TRIGLYCERIDES, NF 115 mg/dL Normal <150 [facility] Comment on above: Order Comment: Jef portillo Type: BLOOD SPECIMEN [facility]ing Facility[facility] Address: [address] [place] [address] Result Comment: <150 mg/dL, Normal 150-199 mg/dL, Borderline high 200-499 mg/dL, High >499 mg/dL, Very high Performed By: #### 2 4323-8, LIPNF #### [facility] CLIA [id number] [address] [place] [address] STATES [place] VLDL CHOLESTEROL, NF 23 mg/dL Normal <30 [facility] Comment on above: Order Comment: Speci men Type: BLOOD SPECIMEN Ordering Facility: [facility] Address: [address] [place] [address] Performed By: #### 2 4323-8, LIPNF #### [facility] CLIA [id number] [address] [place] [address] OF [place] CNPNon 07-02-2024 CNPN Telephone (FAMPWS) TAWANNA REYES ([id number]) 1965 F Date Time Provider Department 07/02/24 [facility] During your visit today, we recorded the following information about you: Misa Gomez MA 07/02/2024 10:26 AM Signed Pt had mammogram done at [facility]. Report attached. View External Imaging - Mammography [ID [id number]] ALO Troncoso Mark D, MD 07/02/2024 11:27 AM Signed Mammogram is normal; repeat in one year MD Omar Kimble Rilee, MA 07/02/2024 12:48 PM Signed Call to pt and notified her of results and recommendations below from Provider. Pt verbalized understanding. Lindy Buchanan MA Allergies As of Date: 07/02/2024 Noted Allergy Reaction CONTRAST DYE 05/17/2005 10 - Anaphylaxis HYDROCODONE 07/27/2018 1 - Mental Status Change Comments: hallucinations, makes me loony. Date Reviewed: 07/01/2024 Reviewed by: Cande Gorman MD - Fully Assessed Reason for Visit: Results [95] Cmt: Mammogram done at [facility] Prescriptions as of 07/02/2024 - acetaminophen 325 mg cap Take 2 capsules by mouth as needed. - Ascorbic Acid 500 mg chew Take 500 mg by mouth once daily. - ibuprofen (MOTRIN) 200 mg tablet Take 200 mg by mouth every 6 hours as needed. - Multivitamin capsule Take 1 capsule by mouth once daily. - Qpgcj-8-YDO-EPA-Fish Oil 1,000 mg (120 mg-180 mg) cap Take 2 g by mouth twice daily. - Cholecalciferol, Vitamin D3, 25 mcg (1,000 unit) cap Take 1,000 Units by mouth once daily. Meds Comments as of 02/14/2018: Vitamin B-12 daily when remembers Problem List As Of Date 07/02/2024 Noted Resolved RENAL AND URETERAL DIS NOS [N28.9] 09/17/2007 APPENDICITIS ACUTE GANGRENOUS [K35.80] 10/08/2007 02/24/2011 Hydronephrosis, bilateral [N13.30] 06/24/2016 Stress incontinence, female [N39.3] 05/21/2018 07/13/2018 Stress incontinence of urine [N39.3] 07/16/2018 07/27/2018 MARY (stress urinary incontinence, female) [N39.*07/20/2018 Urinary tract infection with hematuria [N39.0, *09/27/2018 05/25/2019 Atypical squamous cells of undetermined signifi*03/02/2018 Encounter Status:Closed by LINDY BUCHANAN on 07/02/24 [facility] CNOVon 07-01-2024 CNOV Office Visit (OBGYWM) TAWANNA REYES ([id number]) 1965 F Date Time Provider Department 07/01/24 2:20 PM CANDE GORMAN OBGYWM During your visit today, we recorded the following information about you: Weight Height 63 kg 1.556 m Cande Gorman MD 07/01/2024 2:39 PM Signed Tawanna is a 58 year old who presents for an annual gynecologic exam without complaints. Postmenopausal: yes HRT use: No. Last Pap: 10/10/2019 normal HPV: 10/10/2019 negative History of abnormal pap: No Last mammogram: 2023 pending History of abnormal mammogram: No Sexually active: Yes OB History T2 L2 SAB2 IAB0 Ectopic1 Multiple0 Live Births2 Liability Claims Representative History LMP: 01/20/2021 (Approximate), Postmenopausal Age at Menarche: Age at First : Age at Menopause: Liability Claims Representative History Comments: Sexual Activity: Yes; Male Contraception: No contraception data on record PAST MEDICAL HISTORY Diagnosis Date Snoring Stress incontinence of urine 07/16/2018 UPJ obstruction, congenital bilateral R>L Urinary tract infection with hematuria 09/27/2018 PAST SURGICAL HISTORY Procedure Laterality Date COLONOSCOPY FLX DX W/COLLJ SPEC WHEN PFRMD 01/25/2018 Colonoscopy CYSTOSCOPY 07/13/2018 with bladder sling placement; excision of sling 07/27/18 DILATION AND CURETTAGE DXAND/THER NONOBSTETRIC Dilation AND curettage, x 2 LAPAROSCOPIC APPENDECTOMY 09/17/07 PAST SURGICAL HISTORY OF 1999 Tubal , right salpingectomy FAMILY HISTORY Problem Relation Age of Onset Cancer Father Bladder SOCIAL HISTORY Social History Tobacco Use Smoking status: Never Smokeless tobacco: Never Vaping Use Vaping status: Never Used Substance Use Topics Alcohol use: Yes Comment: rarely Drug use: No REVIEW OF SYSTEMS Abdomen: No abdominal pain, nausea, vomiting, diarrhea, or constipation. No bloating, early satiety, indigestion, or increased flatulence. Bladder: No dysuria, gross hematuria, urinary frequency, urinary urgency, or incontinence Breast: No breast lumps, nipple d/c, overlying skin changes, redness or skin retraction Allergies and current medication updated:Yes SENSITIVE EXAM: The sensitive examination was discussed with the Patient or Patient's Authorized Timber Harvester Operator. As applicable, any other physician, advance practice provider, medical student, or other health professional student that will be observing or involved in the sensitive examination for educational or training purposes was discussed with the Patient or Authorized Timber Harvester Operator. The Patient or Authorized Timber Harvester Operator has agreed to proceed with the sensitive examination. (Sensitive examination includes inspection and/or palpation of the breasts, pelvis, prostate and anorectal regions). EXAM: Ht 5' 1.25 (1.56m) Wt 139 lb (63.1kg) LMP 01/20/2021 BMI 26.04 kg/(m2). GENERAL: pleasant, female in no apparent distress HEENT: Normocephalic, atraumatic, mucus membranes moist, and no lesions NECK: Supple, full range of motion, no adenopathy, and thyroid normal DERMATOLOGY: Normal, without lesions, non-icteric, and non-hirsute BREAST: soft, non-tender, symmetric, no dominant mass, normal nipple-areolar complex, no lymphadenopathy, and no nipple discharge CHEST: Normal inspiratory effort ABDOMEN: soft, non-tender, and no masses PELVIC: external genitalia normal, normal Bartholin's glands, urethra, [place]'s glands, no vulvar lesions, no cervical lesions, good vaginal support, physiologic discharge present, normal appearing perineal body and perianal region BIMANUAL: uterus normal size, shape and consistency, no adnexal masses, and non-tender RECTOVAGINAL: deferred. NEURO: alert and oriented x3,exam grossly non-focal EXTREMITIES: normal ASSESSMENT/PLAN: 1) Health maintenance: Pap done with HPV. Mammogram ordered Colon cancer screening: up to date with screening BMD: up to date 2) Follow up one year or sooner as needed MD Lyle Loja Rebecca L, MD 07/01/2024 2:34 PM Signed BONE MINERAL DENSITY PATIENT INSTRUCTIONS = Bone mineral density testing measures the amount of calcium in certain parts of your bones. This information determines how strong your bones are. The test is used to detect osteoporosis, a disease in which the bone's mineral content and density are low, increasing a person's risk of fractures. The lumbar spine (lower back) and the hip are the skeletal sites usually examined. For the test, remember that: 1. You cannot take this test if you are . 2. Eat a normal diet on the day of the test. 3. Take your medications as you normally would. 4. DO NOT take calcium supplements (such as Tums) for 24 hours before the test. 5. On the day of the test, leave valuables (jewelry or credit cards) at home. 6. The zoila (more content not included)... Normal [facility] HIGH RISK HUMAN PAPILLOMA LORRAINE (HPV), PCR FOR DETECTION AND GENOTYPINGon 07-01-2024 HPV 16 Ag Ql (Unsp spec) Not detected Normal Not detected [facility] Comment on above: Order Comment: Speci men Type: FLUID SPECIMEN [facility] Facility[facility] Address: [address] [place] [address] Performed By: #### H PVHRT #### [facility] CLIA [id number] [address] [place] [address] [place] HPV 18 Ag Ql (Unsp spec) Not detected Normal Not detected [facility] Comment on above: Order Comment: Speci men Type: FLUID SPECIMEN Ordering Facility: [facility] Address: [address] [place] [address] Performed By: #### H PVHRT #### [facility] CLIA [id number] [address] [place] [address] [place] HPV 31+33+35+39+45+51+52+5 6+58+59+66+68 DNA URSULA+probe Ql (Cvx) Not detected Normal Not detected [facility] Comment on above: Order Comment: Speci men Type: FLUID SPECIMEN Ordering Facility: [facility] Address: [address] [place] [address] Result Comment: High Risk HPV Other Type includes HPV types 31, 33, 35, 39, 45, 51, 52, 56, 58, 59, 66 and 68. Performed By: #### H PVHRT #### [facility] CLIA [id number] [address] [place] [address] [place] PAP TESTon 07-01-2024 ADEQUACY Satisfactory for interpretation. Normal [facility] Comment on above: Order Comment: Speci men Type: FLUID SPECIMEN [facility]ing Facility: [facility] Address: [address] [place] [address] Performed By: #### L [id number] #### [facility] CLIA [id number] [address] [place] [address] [place] CASE REPORT Normal [facility] Comment on above: Order Comment: Speci men Type: FLUID SPECIMEN Ordering Facility: [facility] Address: [address] [place] [address] Result Comment: Gyne cologic Cytology Report Case: [id number] Authorizing Provider: Cande Gorman MD Collected: 07/01/2024 02:48 PM Ordering Location: OB/Gynecology Received: 07/01/2024 04:29 PM First Screen: Aramouni, Yudith, CT, ASCP Specimen: Pap Test, ThinPrep, Cervix Performed By: #### L [id number] #### [facility] CLIA [id number] [address] [place] [address] [place] CLINICAL HISTORY, CYTOLOGY, GROCERY CLERK MARKING Routine Exam Normal [facility] Comment on above: Order Comment: Speci men Type: FLUID SPECIMEN Ordering Facility: [facility] Address: [address] [place] [address] Result Comment: Post Menopausal Performed By: #### L [id number] #### [facility] CLIA [id number] [address] [place] [address] [place] CYTOLOGY PAP OTHER INTERPRETATION Atrophic specimen. Normal [facility] Comment on above: Order Comment: Speci men Type: FLUID SPECIMEN [facility]ing Facility: [facility] Address: [address] [place] [address] Performed By: #### L [id number] #### [facility] CLIA [id number] [address] [place] [address] [place] FINAL PERFORMING LAB Normal [facility] Comment on above: Order Comment: Speci men Type: FLUID SPECIMEN Ordering Facility: [facility] Address: [address] [place] [address] Result Comment: Tech nical component, software support representative screening performed at [facility], [address] [place], [place] [id number] CLIA# [id number] Diagnostic interpretation performed at [facility], [address] [place] [address] CLIA# [id number] Shaker Repairer: Zelalem Lewis M.D. Performed By: #### L [id number] #### [facility] CLIA [id number] [address] [place] [address] [place] INTERPRETATION, CYTOLOGY, GROCERY CLERK MARKING Normal [facility] Comment on above: Order Comment: Speci men Type: FLUID SPECIMEN Ordering Facility: [facility] Address: [address] [place] [address] Result Comment: Nega tive for intraepithelial lesion or malignancy. Performed By: #### L [id number] #### [facility] CLIA [id number] [address] [place] [address] [place] PAP DISCLAIMER COMMENT The Pap Smear is a screening test for cervical cancer. False negative results occur with all screening tests, emphasizing the need for rescreening at recommended intervals, and clinical correlation. Normal [facility] Comment on above: Order Comment: Speci men Type: FLUID SPECIMEN Ordering Facility: [facility] Address: [address] [place] [address] Performed By: #### L [id number] #### [facility] CLIA [id number] [address] [place] [address] [place] PAP PUMP REBUILDER COMMENT This specimen has been analyzed by the ThinPrep Imaging System, an automated imaging and review system, which assists the laboratory in evaluating cells on ThinPrep Pap tests. Following automated imaging, selected chavez from every slide are reviewed by a software support representative. Normal [facility] Comment on above: Order Comment: Speci men Type: FLUID SPECIMEN [facility]ing Facility: [facility] Address: [address] [place] [address] Performed By: #### L [id number] #### [facility] CLIA [id number] [address] [place] [address] [place] SCRN MAMM (CAD)W/DEMETRA BILATo n 07-01-2024 SCRN MAMM (CAD)W/DEMETRA BILAT [facility] Imaging Services [address] [place] [id number] SCRN MAMM (CAD)W/DEMETRA BILAT MR#: [id number] Acct: [id number] Name: TAWANNA REYES Rep #: [id number] : 1965 F 58 From: Felix armando MD PCP: Dr. Terra Mendoza MD Status: [facility] Study: SCRN MAMM (CAD)W/DEMETRA BILAT Date of Exam: 06/16 01/07 Exam# [id number] Ordering Dr: Terra Mendoza MD [id number] MAMMOGRAPHY - BILATERAL SCREENING REASON FOR EXAM: Female, 58 years old. Routine annual screening examination. PERTINENT HISTORY: Non-contributory. Prior right stereotactic breast biopsies. TECHNIQUE: Digital bilateral breast demetra (3D mammographic acquisition) in the CC and MLO projections. 2-D mediolateral oblique (MLO) and craniocaudad (CC) views of both breasts were obtained. CAD: Full Field Digital Mammography with Computer Added Detection was performed. COMPARISON: Comparison is made with prior study dated December 30, 2022 and December 21, 2021. FINDINGS: Breast Composition: The breasts are heterogeneously dense, which may obscure small masses. There are no dominant masses or suspicious calcifications. A tissue clip marker is once again seen in the medial retroareolar region of the right breast. No other significant abnormalities are identified. There has been no significant change since the prior study. BI/SCRN MAMM (CAD)W/DEMETRA BILAT IMPRESSION: Stable bilateral screening mammogram. Yearly follow-up mammogram recommended. (A) ASSESSMENT CATEGORY: BIRADS Category 2: Benign. A letter regarding these results will be sent to the patient by the facility within 30 days. Approximately 10% of breast cancers are not detected by mammography. A normal mammogram should not delay biopsy of a clinically suspicious abnormality. [id number] Electronically Signed: Felix Sanchez MD at 8:40 EST , CC: Dr. Terra Mendoza MD Home Care Assistant: Signed Normal [facility] 02-05-2019 CNPN Telephone (UROLAE) TAWANNA REYES ([id number]) 1965 F Date Time Provider Department 02/05/19 CHARLES MAGALLON JR During your visit today, we recorded the following information about you: Humera Turner [facility] 02/05/2019 8:48 AM Signed ----- Message from Charles Magallon Jr. sent at 02/05/2019 8:47 AM EDT ----- Let pt know that urine cx is negative Humera Turner [facility] 02/05/2019 8:50 AM Signed lmom for pt to call back to give her, her results. Humera Turner [facility] Alejandra Wilhelm [facility] 02/05/2019 1:32 PM Signed Left message notifying pt of results and informed them to call back with any further questions. Alejandra Wilhelm [facility] Janak Murphy [facility] 02/05/2019 1:47 PM Signed Spoke with pt and advised of the results below. Janak Murphy [facility] Allergies As of Date: 02/05/2019 Noted Allergy Reaction CONTRAST DYE 05/17/2005 10 - Anaphylaxis HYDROCODONE 07/27/2018 1 - Mental Status Change Comments: hallucinations, makes me loony. Date Reviewed: 11/13/2018 Reviewed by: Charles Magallon Jr. - Fully Assessed Reason for Visit: Results [95] Prescriptions as of 02/05/2019 Sig: ACETAMINOPHEN 325 MG CAPSULE Take 2 capsules by mouth once* ASCORBIC ACID (VITAMIN C) 500* Take 500 mg by mouth once john* IBUPROFEN 200 MG TABLET Take 200 mg by mouth every 6 * CRANBERRY 400 MG CAPSULE Take by mouth once daily. MULTIVITAMIN CAPSULE Take 1 capsule by mouth once * OMEGA 4-VHQ-JVO-FISH OIL 1,00* Take 2 g by mouth twice daily. CHOLECALCIFEROL (VITAMIN D3) * Take 1,000 Units by mouth onc* Problem List As Of Date 02/05/2019 Noted Resolved RENAL AND URETERAL DIS NOS [N28.9] INVALID FOR* More... APPENDICITIS ACUTE GANGRENOUS [K35.80] INVALID FOR*02/24/2011 Hydronephrosis, bilateral [N13.30] INVALID FOR* Stress incontinence, female [N39.3] INVALID FOR*07/13/2018 More... Stress incontinence of urine [N39.3] INVALID FOR*07/27/2018 MARY (stress urinary incontinence, female) [N39.*INVALID FOR* More... Urinary tract infection with hematuria [N39.0, *INVALID FOR* Encounter Status:Closed by ALEJANDRA WILHELM CMA on 02/05/19 [facility] Joelle 10-09-2018 [facility] Telephone (AKURFL) TAWANNA REYES ([id number]) 1965 F Date Time Provider Department 10/09/18 SARAHY ALLEN) RAMANDEEP During your visit today, we recorded the following information about you: Alejandra Wilhelm CMA 10/09/2018 9:36 AM Signed Pt called asking about the ABX you prescribed - the bottle states 1 twice a day 30 pills no refills - so that's what she has been doing - however pt thought you wanted her on it for 30 days total Please advise Alejandra Allen PA-C 10/09/2018 10:58 AM Signed Please call pt, have pt take only once daily until next appointment. MIKE Bedoya CMA 10/09/2018 11:04 AM Signed Pt states she has only has 1 pill left - she has been 2 a day Alejandra Allen PA-C 10/09/2018 12:34 PM Signed Please call pt, correct prescription of macrobid sent to pharmacy. MIKE Bedoya [facility] 10/09/2018 12:46 PM Signed Left detailed message for pt. Mayur Souza MA 10/18/2018 8:51 AM Signed Pt called in and wants to know if she should be taking the medication for six weeks instead of 4 I explained to the pt that you would like for her to complete the Antibiotic until her next Appt. Pt states she would like to change her appointment because she don't think it will show if the infection is gone within time period. Please advise. Princess Allen PA-C 10/18/2018 1:16 PM Signed I only want pt on macrobid for one month. MIKE Bedoya MA 10/19/2018 9:09 AM Signed Left Vm for pt to return call regarding below. Princess Lopez [facility] 10/22/2018 10:20 AM Signed Pt aware to take Macrobid for only 30 days total Allergies As of Date: 10/09/2018 Noted Allergy Reaction CONTRAST DYE 05/17/2005 10 - Anaphylaxis HYDROCODONE 07/27/2018 1 - Mental Status Change Comments: hallucinations, makes me loony. Date Reviewed: 09/27/2018 Reviewed by: Sarahy Allen - Fully Assessed Reason for Visit: Medication Question [5018] Order(s):nitrofurant oin monohydrate and macrocrystal (MACROBID) 100 mg capsuleTake 1 capsule by mouth daily at bedtime. with food for thirty(30) days.Disp: 30 capsuleRfl: 1 Prescriptions as of 10/09/2018 Sig: NITROFURANTOIN MONOHYDRATE AND * Take 1 capsule by mouth daily* ACETAMINOPHEN 325 MG CAPSULE Take 2 capsules by mouth once* ASCORBIC ACID (VITAMIN C) 500* Take 500 mg by mouth once john* IBUPROFEN 200 MG TABLET Take 200 mg by mouth every 6 * CRANBERRY 400 MG CAPSULE Take by mouth once daily. MULTIVITAMIN CAPSULE Take 1 capsule by mouth once * OMEGA 5-WHJ-ERI-FISH OIL 1,00* Take 2 g by mouth twice daily. CHOLECALCIFEROL (VITAMIN D3) * Take 1,000 Units by mouth onc* Problem List As Of Date 10/09/2018 Noted Resolved RENAL AND URETERAL DIS NOS [N28.9] INVALID FOR* More... APPENDICITIS ACUTE GANGRENOUS [K35.80] INVALID FOR*02/24/2011 Hydronephrosis, bilateral [N13.30] INVALID FOR* Stress incontinence, female [N39.3] INVALID FOR*07/13/2018 More... Stress incontinence of urine [N39.3] INVALID FOR*07/27/2018 MARY (stress urinary incontinence, female) [N39.*INVALID FOR* More... Urinary tract infection with hematuria [N39.0, *INVALID FOR* Prescriptions ordered this encounter Disp Refills Start End NITROFURANTOIN MONOHYDRATE AND MACROCR* 30 c* 1 10/09/2018 11/08/2018 Route: ORAL Sig: Take 1 capsule by mouth daily at bedtime. with food for thirty(30) days. Medications Discontinued During This Encounter nitrofurantoin monohydrate and macro* 30 c* 0 09/27/2018 10/09/2018 Route: ORAL Sig: Take 1 capsule by mouth twice daily. Disc: Reason for discontinue is not on file. Encounter Status:Closed by MAYUR YIP CMA on 10/09/18 [facility] DEANDREon 09-27-2018 CNOV Office Visit (AKURFL) TAWANNA REYES ([id number]) 1965 F Date Time Provider Department 09/27/18 3:15 PM SARAHY ALLEN During your visit today, we recorded the following information about you: Blood pressure Weight Height 118/78 61.2 kg 1.575 m Sarahy Allen PA-C 09/27/2018 4:26 PM Signed ESTABLISHED PATIENT OFFICE VISIT HISTORY OF PRESENT ILLNESS: Tawanna Reyes is a 53 year old female, Ht 157.5 cm (5' 2) BMI 24.69 kg/m2 with a PMH significant for recent bout of uti's since sling surgery. Pt reports bladder pressure, pain and dysuria. Pt has been on 3 different antibiotics, feels better while on the antibiotic, then symptoms return. No fever, chills. Pt reports occational specks of blood in urine. . LAB: Creatinine Date Value Ref Range Status 06/28/2016 0.84 0.58 - 0.96 mg/dL Final No results found for: PSA Glucose, Urine (mg/dL) Date Value 02/14/2018 Neg Bilirubin, Urine (no units) Date Value 02/14/2018 Neg Ketones, Urine (no units) Date Value 02/14/2018 Neg Specific [place], Ur (no units) Date Value 02/14/2018 1.005 Hemoglobin/Blood,Ur (no units) Date Value 02/14/2018 Small pH, Urine (no units) Date Value 02/14/2018 6.5 Protein, Urine (mg/dL) Date Value 02/14/2018 Neg Urobilinogen, Urine (EU) Date Value 02/14/2018 Neg Nitrites (no units) Date Value 02/14/2018 Neg Leukocytes (no units) Date Value 02/14/2018 Mod Color/Appearance (comment:) Date Value 02/14/2018 Lt. Yellow/Cloudy MEDICATIONS: acetaminophen (TYLENOL) 325 mg cap Take 2 capsules by mouth once daily. Ascorbic Acid (VITAMIN C) chew Take 500 mg by mouth once daily. ibuprofen (ADVIL) 200 mg tablet Take 200 mg by mouth every 6 hours as needed. Cranberry 400 mg cap Take by mouth once daily. Multivitamin capsule Take 1 capsule by mouth once daily. Urlfw-7-GBR-EPA-Fish Oil (FISH OIL) 1,000 mg (120 mg-180 mg) cap Take 2 g by mouth twice daily. Cholecalciferol, Vitamin D3, (VITAMIN D) 1,000 unit cap Take 1,000 Units by mouth once daily. Review of Systems Constitutional: Negative for chills, fatigue and fever. Respiratory: Negative for shortness of breath and wheezing. Gastrointestinal: Negative for abdominal pain, constipation, diarrhea and nausea. Genitourinary: See HPI Neurological: Negative for dizziness, light-headedness and headaches. Psychiatric/Behavior al: Negative for behavioral problems. The patient is not nervous/anxious. 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 ASSESSMENT/PLAN: 1. Urinary tract infection with hematuria, site unspecified - ICD9: 599.0, 599.70, ICD10: N39.0, R31.9 recurrent macrobid for one month Azo for symptoms Probiotic Sarahy Allen PA-C Referring Provider: TERRA MENDOZA [[id number]] Allergies As of Date: 09/27/2018 Noted Allergy Reaction CONTRAST DYE 05/17/2005 10 - Anaphylaxis HYDROCODONE 07/27/2018 1 - Mental Status Change Comments: hallucinations, makes me loony. Date Reviewed: 09/27/2018 Reviewed by: Sarahy Allen - Fully Assessed Reason for Visit: Bladder Infection [1083] Visit Diagnosis:Urinary tract infection with hematuria, site unspecified [N39.0, R31.9] Order(s):UA DIP, URINE (POC) [[id number]] Order #: [id number] #:[id number] nitrofurantoin monohydrate and macrocrystal (MACROBID) 100 mg capsuleTake 1 capsule by mouth twice daily.Disp: 30 capsuleRfl: 0 Prescriptions as of 09/27/2018 Sig: NITROFURANTOIN MONOHYDRATE AND * Take 1 capsule by mouth twice* ACETAMINOPHEN 325 MG CAPSULE Take 2 capsules by mouth once* ASCORBIC ACID (VITAMIN C) 500* Take 500 mg by mouth once john* IBUPROFEN 200 MG TABLET Take 200 mg by mouth every 6 * CRANBERRY 400 MG CAPSULE Take by mouth once daily. MULTIVITAMIN CAPSULE Take 1 capsule by mouth once * OMEGA 5-QUG-SCW-FISH OIL 1,00* Take 2 g by mouth twice daily. CHOLECALCIFEROL (VITAMIN D3) * Take 1,000 Units by mouth onc* Problem List As Of Date 09/27/2018 Noted Resolved RENAL AND URETERAL DIS NOS [N28.9] INVALID FOR* More... APPENDICITIS ACUTE GANGRENOUS [K35.80] INVALID FOR*02/24/2011 Hydronephrosis, bilateral [N13.30] INVALID FOR* Stress incontinence, female [N39.3] INVALID FOR*07/13/2018 More... Stress incontinence of urine [N39.3] INVALID FOR*07/27/2018 MARY (stress urinary incontinence, female) [N39.*INVALID FOR* More... Urinary tract infection with hematuria [N39.0, *INVALID FOR* Prescriptions ordered this encounter Disp Refills Start End NITROFURANTOIN MONOHYDRATE AND MACROCR* 30 c* 0 09/27/2018 10/27/2018 Route: ORAL Sig: Take 1 capsule by mouth twice daily. Disposition: Return in about 1 month (around 10/25/2018) for UTI Follow up. Follow-up and Disposition History Recorded Encounter Status:Closed by SARAHY ALLEN on 09/27/18 [facility] PROGRESSon 09-27-2018 PROGRESS HNO ID: [id number] Author: Sarahy Allen Service: ? Author Type: Physician Pigment Supplier Type: Progress Notes Filed: 09/27/2018 4:26 PM Note Text: ESTABLISHED PATIENT OFFICE VISIT HISTORY OF PRESENT ILLNESS: Tawanna Reyes is a 53 year old female, Ht 157.5 cm (5' 2) BMI 24.69 kg/m2 with a PMH significant for recent bout of uti's since sling surgery. Pt reports bladder pressure, pain and dysuria. Pt has been on 3 different antibiotics, feels better while on the antibiotic, then symptoms return. No fever, chills. Pt reports occational specks of blood in urine. . LAB: Creatinine Date Value Ref Range Status 06/28/2016 0.84 0.58 - 0.96 mg/dL Final No results found for: PSA Glucose, Urine (mg/dL) Date Value 02/14/2018 Neg Bilirubin, Urine (no units) Date Value 02/14/2018 Neg Ketones, Urine (no units) Date Value 02/14/2018 Neg Specific [place], Ur (no units) Date Value 02/14/2018 1.005 Hemoglobin/Blood,Ur (no units) Date Value 02/14/2018 Small pH, Urine (no units) Date Value 02/14/2018 6.5 Protein, Urine (mg/dL) Date Value 02/14/2018 Neg Urobilinogen, Urine (EU) Date Value 02/14/2018 Neg Nitrites (no units) Date Value 02/14/2018 Neg Leukocytes (no units) Date Value 02/14/2018 Mod Color/Appearance (comment:) Date Value 02/14/2018 Lt. Yellow/Cloudy MEDICATIONS: acetaminophen (TYLENOL) 325 mg cap Take 2 capsules by mouth once daily. Ascorbic Acid (VITAMIN C) chew Take 500 mg by mouth once daily. ibuprofen (ADVIL) 200 mg tablet Take 200 mg by mouth every 6 hours as needed. Cranberry 400 mg cap Take by mouth once daily. Multivitamin capsule Take 1 capsule by mouth once daily. Gzoob-2-DTC-EPA-Fish Oil (FISH OIL) 1,000 mg (120 mg-180 mg) cap Take 2 g by mouth twice daily. Cholecalciferol, Vitamin D3, (VITAMIN D) 1,000 unit cap Take 1,000 Units by mouth once daily. Review of Systems Constitutional: Negative for chills, fatigue and fever. Respiratory: Negative for shortness of breath and wheezing. Gastrointestinal: Negative for abdominal pain, constipation, diarrhea and nausea. Genitourinary: See HPI Neurological: Negative for dizziness, light-headedness and headaches. Psychiatric/Behavior al: Negative for behavioral problems. The patient is not nervous/anxious. 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 ASSESSMENT/PLAN: 1. Urinary tract infection with hematuria, site unspecified - ICD9: 599.0, 599.70, ICD10: N39.0, R31.9 recurrent macrobid for one month Azo for symptoms Probiotic Sarahy Allen PA-C [facility] ANES Kevin 07-27-2018 ANES POST HNO ID: [id number] Author: Harshal Stockton Service: Anesthesiology Author Type: Physician Type: Anesthesia PostOp Filed: 07/27/2018 2:29 PM Note Text: POST ANESTHESIA EVALUATION NOTE SERVICE DATE: 07/27/2018 SERVICE TIME: 2:29 PM : 1965 Vitals: 07/27/18 0954 07/27/18 1120 Temp: 36.4 ?C (97.5 ?F) 36.3 ?C (97.3 ?F) 07/27/18 1250 07/27/18 1310 07/27/18 1330 07/27/18 1345 BP: 134/67 133/76 132/79 136/73 07/27/18 1250 07/27/18 1310 07/27/18 1330 07/27/18 1345 Pulse: 60 (!) 57 62 64 07/27/18 1250 07/27/18 1310 07/27/18 1330 07/27/18 1345 Resp: 16 16 16 16 07/27/18 1250 07/27/18 1310 07/27/18 1330 07/27/18 1345 SpO2: 97% 96% 96% 96% Validated Vital Signs: Yes POST ANES STATUS: No apparent anesthetic complications. The patient is appropriately hydrated with stable respiratory and cardiovascular status. Patient has safe and adequate airway control. The patient has appropriate pain relief and no significant post operative nausea or vomiting. The patient has achieved baseline mental status. Intra-Operative Events: No Significant Anesthesia Events Further assessment by Anesthesia Service: None Other Remarks: SIGNATURE: Harshal Stockton MD PATIENT NAME: Tawanna Reyes DATE: July 27, 2018 TIME: 2:29 PM PAGER/CONTACT #: [facility] ANES PREOPon 07-27-2018 ANES PREOP HNO ID: [id number] Author: Harshal Stockton Service: Anesthesiology Author Type: Physician Type: Anesthesia PreOp Filed: 07/27/2018 9:43 AM Note Text: ANESTHESIOLOGY DAY OF SURGERY NOTE SERVICE DATE: 07/27/2018 SERVICE TIME: 9:42 AM : 1965 Procedure(s) (LRB): EXCISION OF MID URETHRAL SLING (N/A) CYSTOSCOPY (N/A) Surgeon(s): Charles Magallon Jr. Estimated body mass index is 23.78 kg/m? as calculated from the following: Height as of 07/25/18: 157.5 cm (5' 2). Weight as of 07/25/18: 59 kg (130 lb). Most recent hematocrit and potassium results: Potassium 3.7 06/28/2016 ANES DOS/PREOP NOTE: Vitals: There were no vitals filed for this visit. 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 PAST SURGICAL HISTORY Procedure Laterality Date - COLONOSCOP W/ OR W/O BRSH SPEC 01/25/2018 Colonoscopy - CYSTOSCOPY 07/13/2018 with bladder sling placement - DANDC, DIAG AND/OR THERAPEUTIC Dilation AND curettage, x 2 - LAPAROSCOPY, SURGICAL, APPENDECTOMY 09/17/07 - PAST SURGICAL HISTORY OF 1999 Tubal , right salpingectomy FAMILY HISTORY Problem Relation Age of Onset - Cancer Father Bladder Social History: Social History Substance Use Topics - Smoking status: Never Smoker - Smokeless tobacco: Never Used - Alcohol use Yes Comment: rarely No current facility-administere d medications on file prior to encounter. Current Outpatient Prescriptions on File Prior to Encounter: ceFAZolin (ANCEF, KEFZOL) 1 gram injection Inject 2 g intravenously one time only for 1 dose. Ascorbic Acid (VITAMIN C) chew Take 500 mg by mouth once daily. ibuprofen (ADVIL) 200 mg tablet Take 200 mg by mouth every 6 hours as needed. Cranberry 400 mg cap Take by mouth once daily. Multivitamin capsule Take 1 capsule by mouth once daily. Cqgro-9-WZX-EPA-Fish Oil (FISH OIL) 1,000 mg (120 mg-180 mg) cap Take 2 g by mouth twice daily. Cholecalciferol, Vitamin D3, (VITAMIN D) 1,000 unit cap Take 1,000 Units by mouth once daily. No current facility-administere d medications for this encounter. Allergies: ALLERGIES Allergen Reactions - Contrast Dye Anaphylaxis DOS EXAM: Adequate NPO status: Yes Anesthetic risks, benefits, alternatives, personnel and consent discussed: Yes Patient agrees to proceed: Yes Previous Anesthesia: No history of adverse event. Airway Assessment: MP 2; Neck ROM: Full ROM without neurologic symptoms; Airway Evaluation: No significant abnormalities Symptoms of Sleep Apnea: None Dentition: Teeth intact Additional Physical Exam: Lungs: Patient health status unchanged since recent history and physical. See history and physical for exam findings. Cardiac: Patient health status unchanged since recent history and physical. See history and physical for exam findings. Additional Pertinent Findings: N/A Blood Products: Not anticipated for this procedure. Anesthetic Plan: General, Standard ASA Monitors Pain Management Plan: Parenteral or Oral ASA Class: 2 Other Medical Problems: None Chronic Beta Maryan medication administered within 24 hours: N/A I have interviewed and examined the patient. I have reviewed the medical record and/or the pre-anesthesia evaluation, pertinent labs, and test results. Significant changes in the patient's condition since the History and Physical, not otherwise documented in primary service progress notes: No This contains updated information obtained within 48 hours of Surgery/Procedure. SIGNATURE: Harshal Stockton MD PATIENT NAME: Tawanna Reyes DATE: July 27, 2018 TIME: 9:42 AM CSN: [id number] [facility] Joelle 07-27-2018 [facility] Telephone ([facility]) AMYTAWANNA CALDERON ([id number]) 1965 F Date Time Provider Department 07/27/18 CHARLES MAGALLON JR During your visit today, we recorded the following information about you: Charles Magallon Jr, MD 07/27/2018 11:19 AM Signed HANDw or 07/27/18 Fu with me 2 weeks Allergies As of Date: 07/27/2018 Noted Allergy Reaction CONTRAST DYE 05/17/2005 10 - Anaphylaxis Date Reviewed: 07/27/2018 Reviewed by: Rashida (Rn) ABBIE Johnson - Fully Assessed Reason for Visit: Appointment [186] Prescriptions as of 07/27/2018 Sig: ACETAMINOPHEN 325 MG CAPSULE Take 2 capsules by mouth once* OXYCODONE-ACETAMINOP HEN 5 MG-* Take 1 tablet by mouth every * LEVOFLOXACIN 750 MG TABLET Take 1 tablet by mouth once d* CEFAZOLIN 1 GRAM SOLUTION FOR* Inject 2 g intravenously one * ASCORBIC ACID (VITAMIN C) 500* Take 500 mg by mouth once john* IBUPROFEN 200 MG TABLET Take 200 mg by mouth every 6 * CRANBERRY 400 MG CAPSULE Take by mouth once daily. MULTIVITAMIN CAPSULE Take 1 capsule by mouth once * OMEGA 9-CXH-ZRA-FISH OIL 1,00* Take 2 g by mouth twice daily. CHOLECALCIFEROL (VITAMIN D3) * Take 1,000 Units by mouth onc* Problem List As Of Date 07/27/2018 Noted Resolved RENAL AND URETERAL DIS NOS [N28.9] INVALID FOR* More... APPENDICITIS ACUTE GANGRENOUS [K35.80] INVALID FOR*02/24/2011 Hydronephrosis, bilateral [N13.30] INVALID FOR* Stress incontinence, female [N39.3] INVALID FOR*07/13/2018 More... Stress incontinence of urine [N39.3] INVALID FOR*07/27/2018 MARY (stress urinary incontinence, female) [N39.*INVALID FOR* More... Encounter Status:Closed by CHARLES MAGALLON MD on 07/27/18 [facility] NURSING PROGon 07-27-2018 NURSING PROG HNO ID: [id number] Author: Rashida GarciaRn) Alex RN Service: (none) Author Type: Registered Nurse Type: Nursing Progress Note Filed: 07/27/2018 2:24 PM Note Text: Pt dressed with assist from Pancho. Stable gait. [facility] NURSING PROG HNO ID: [id number] Author: Rashida GarciaRn) Alex, RN Service: (none) Author Type: Registered Nurse Type: Nursing Progress Note Filed: 07/27/2018 2:24 PM Note Text: Dr. Magallon notified that pt voided 400 cc clear urine with no difficulties. [facility] NURSING PROG HNO ID: [id number] Author: Rashida GarciaRn) Alex, RN Service: (none) Author Type: Registered Nurse Type: Nursing Progress Note Filed: 07/27/2018 2:20 PM Note Text: Dr. Magallon notified that pt voided 400 cc blood tinged urine with no difficulties. Notified that pt was concerned about urine being bloody. Pt informed that blood tinged urine is normal for up to 48 hours after surgery. Pt verbalizes understanding. [facility] NURSING PROG HNO ID: [id number] Author: Rashida Xiong) Alex, RN Service: (none) Author Type: Registered Nurse Type: Nursing Progress Note Filed: 07/27/2018 2:26 PM Note Text: Pt up to chair with stand by assist and taken to the bathroom. Stable gait. [facility] OPERATIVE NOon 07-27-2018 OPERATIVE NO HNO ID: [id number] Author: Charles Magallon Jr. Service: (none) Author Type: Physician Type: Operative Report Filed: 07/30/2018 12:24 PM Note Text: [facility] - Operative Report TAWANNA REYES : 1965 AGE: 52. SEX: F PATIENT TYPE: O [place] [facility] [place] LOCATION: ATTENDING PHYSICIAN: [facility] NUMBER: [id number] DATE OF SURGERY/PROCEDURE: 07/27/2018 INCISION/PROCEDURE START TIME: 11:00 AM INCISION CLOSE/PROCEDURE END TIME: 11:11 AM PREOPERATIVE DIAGNOSIS: Stress urinary incontinence. POSTOPERATIVE DIAGNOSIS: Stress urinary incontinence. SURGEON: Charles Magallon Jr, MD SHIPS OR BARGES LOADER: No Additional Staff SURGERY/PROCEDURE: Cystoscopy with incision of mid urethral sling. ANESTHESIA: General. COMPLICATIONS: None. DESCRIPTION OF PROCEDURE: Tawanna Reyes is a 52-year-old female, had stress urinary incontinence 2 weeks ago, placed a mid urethral sling. She has stone retention, now taken back for incision of the sling. After being explained the risks, benefits, and alternatives of the procedure, the patient was correctly identified, taken to the operative suite, placed on the table in a dorsal lithotomy position after general anesthesia was induced. Prepped and draped in normal sterile fashion. The suburethral incision was then opened. The sling was identified. It was pulled down from the urethra and then cut. Next, a 2-0 Vicryl suture on a UR6 needle was then used to reclose the vaginal mucosal incision. Cystoscopy was performed, showed normal bladder with no signs of injury. At this point, the patient was reversed from anesthesia having tolerated the procedure well and afterwards taken to the Postoperative Care Unit for recovery. Charles Magallon Jr, MD MG:[id number] /[id number] [facility] PT EDon 07-27-2018 PT ED HNO ID: [id number] Author: Rashida GarciaRn) ABBIE Johnson Service: (none) Author Type: Registered Nurse Type: Patient Education Filed: 07/27/2018 2:26 PM Note Text: Pt ambulated to the bathroom with assist x1. Stable gait. [facility] PT ED HNO ID: [id number] Author: Jaimie GarciaRn) ABBIE Holcomb Service: (none) Author Type: Registered Nurse Type: Patient Education Filed: 07/27/2018 9:57 AM Note Text: ONGOING PATIENT EDUCATION TOPIC Reinforced: Patient Name: Tawanna Reyes Patient Location: [facility] Readiness To Learn Motivation To Learn: Eager Instruction Provided To: Patient Learning Response Patient/Family Response: Verbalizes understanding of: PRE-OPERATIVE INSTRUCTIONS-Correct action to take to follow pre-operative instructions Method of Instruction: Individual instruction Follow-Up Plan: Complete - No need for follow-up Electronically signed by: Jaimie Holcomb RN [facility] Urine HCG, Qual.on 9 HCG.beta subunit ( test) Ql (U) Negative Normal Negative [facility] Comment on above: Performed By: #### M HCGU #### [facility] [address] [id number] CNNURSEon 07-25-2018 CNNURSE Nurse Visit (RAMANDEEP) TAWANNA REYES ([id number]) 1965 F Date Time Provider Department 07/25/18 1:00 PM NURSE UROL JAN SABILLON During your visit today, we recorded the following information about you: Nohemy Gilbert RN, RN 07/25/2018 12:07 PM Signed Patient is back in today for a PVR after having her catheter taken out this AM. Patient co difficulty or inability to urinate and is back in office. PVR result is >999ml. Sarahy MCCONNELL advised and order received to replace catheter. 16 Fr. Catheter placed using sterile technique. Balloon filled with 10ml of water. 775 urine drained. New leg bag attached. Good urine flow noted into bag. Patient had no co pain or discomfort during or after procedure. Patient advised to contact this office at ([phone]) if she has any sudden pain or discomfort during 08:00 to 16:00. If after those hours, patient should go to the emergency room. Patient voiced understanding of all instructions. Nohemy Gilbert RN Referring Provider: TERRA MENDOZA [[id number]] Allergies As of Date: 07/25/2018 Noted Allergy Reaction CONTRAST DYE 05/17/2005 10 - Anaphylaxis Date Reviewed: 07/25/2018 Reviewed by: Charles Magallon Jr. - Fully Assessed Reason for Visit: Post Void Residual [355] Primary Visit Diagnosis:Retention of urine, unspecified [R33.9] Order(s):BLADDER SCAN [[id number]] Order #: [id number] Prescriptions as of 07/25/2018 Sig: LEVOFLOXACIN 750 MG TABLET Take 1 tablet by mouth once d* CEFAZOLIN 1 GRAM SOLUTION FOR* Inject 2 g intravenously one * CEPHALEXIN 500 MG CAPSULE Take 1 capsule by mouth three* ASCORBIC ACID (VITAMIN C) 500* Take 500 mg by mouth once john* IBUPROFEN 200 MG TABLET Take 200 mg by mouth every 6 * CRANBERRY 400 MG CAPSULE Take by mouth once daily. MULTIVITAMIN CAPSULE Take 1 capsule by mouth once * OMEGA 2-EJP-CPD-FISH OIL 1,00* Take 2 g by mouth twice daily. CHOLECALCIFEROL (VITAMIN D3) * Take 1,000 Units by mouth onc* Problem List As Of Date 07/25/2018 Noted Resolved RENAL AND URETERAL DIS NOS [N28.9] INVALID FOR* More... APPENDICITIS ACUTE GANGRENOUS [K35.80] INVALID FOR*02/24/2011 Hydronephrosis, bilateral [N13.30] INVALID FOR* Stress incontinence, female [N39.3] INVALID FOR*07/13/2018 More... Stress incontinence of urine [N39.3] INVALID FOR* MARY (stress urinary incontinence, female) [N39.*INVALID FOR* More... Visit Notes: >> Nohemy (Abbie) ABBIE Gilbert MonJul 25, 2018 11:36 AM Status: Signed Patient is back in today for a PVR after having her catheter taken out this AM. Patient co difficulty or inability to urinate and is back in office. PVR result is >999ml. Sarahy MCCONNELL advised and order received to replace catheter. 16 Fr. Catheter placed using sterile technique. Balloon filled with 10ml of water. 775 urine drained. New leg bag attached. Good urine flow noted into bag. Patient had no co pain or discomfort during or after procedure. Patient advised to contact this office at ([phone]) if she has any sudden pain or discomfort during 08:00 to 16:00. If after those hours, patient should go to the emergency room. Patient voiced understanding of all instructions. Nohemy Gilbert RN Follow-up and Disposition History Recorded Encounter Status:Closed by NOHEMY GILBERT on 07/25/18 [facility] Nurse Visit (AKURFL) AMYTAWANNA Maite ([id number]) 1965 F Date Time Provider Department 07/25/18 8:30 AM NURSE JORGE LUIS SABILLON During your visit today, we recorded the following information about you: Blood pressure Weight Height 110/76 59 kg 1.575 m Kalie Lawson LPN 07/25/2018 8:46 AM Signed Patient is in today for a catheter removal and later PVR. Balloon deflated and catheter removed intact without difficulty. Patient has no co pain or discomfort after removal. Patient advised to continue drinking fluids. Patient is to RTO as scheduled for a PVR if able to urinate. If patient is unable to urinate, patient is to RTO at 12:30. Patient voiced understanding of all instructions. Kalie Lawson LPN Referring Provider: TERRA MENDOZA [[id number]] Allergies As of Date: 07/25/2018 Noted Allergy Reaction CONTRAST DYE 05/17/2005 10 - Anaphylaxis Date Reviewed: 07/25/2018 Reviewed by: Nohemy (Rn) ABBIE Gilbert - Fully Assessed Reason for Visit: Rodriguez [[id number]] Primary Visit Diagnosis:Retention of urine, unspecified [R33.9] Prescriptions as of 07/25/2018 Sig: LEVOFLOXACIN 750 MG TABLET Take 1 tablet by mouth once d* CEFAZOLIN 1 GRAM SOLUTION FOR* Inject 2 g intravenously one * CEPHALEXIN 500 MG CAPSULE Take 1 capsule by mouth three* ASCORBIC ACID (VITAMIN C) 500* Take 500 mg by mouth once john* IBUPROFEN 200 MG TABLET Take 200 mg by mouth every 6 * CRANBERRY 400 MG CAPSULE Take by mouth once daily. MULTIVITAMIN CAPSULE Take 1 capsule by mouth once * OMEGA 3-SFT-EDY-FISH OIL 1,00* Take 2 g by mouth twice daily. CHOLECALCIFEROL (VITAMIN D3) * Take 1,000 Units by mouth onc* Problem List As Of Date 07/25/2018 Noted Resolved RENAL AND URETERAL DIS NOS [N28.9] INVALID FOR* More... APPENDICITIS ACUTE GANGRENOUS [K35.80] INVALID FOR*02/24/2011 Hydronephrosis, bilateral [N13.30] INVALID FOR* Stress incontinence, female [N39.3] INVALID FOR*07/13/2018 More... Stress incontinence of urine [N39.3] INVALID FOR* MARY (stress urinary incontinence, female) [N39.*INVALID FOR* More... Visit Notes: >> Kalie Lawson LPN MonJul 25, 2018 8:35 AM Status: Signed Patient is in today for a catheter removal and later PVR. Balloon deflated and catheter removed intact without difficulty. Patient has no co pain or discomfort after removal. Patient advised to continue drinking fluids. Patient is to RTO as scheduled for a PVR if able to urinate. If patient is unable to urinate, patient is to RTO at 12:30. Patient voiced understanding of all instructions. Kalie Lawson LPN Encounter Status:Closed by KALIE LAWSON LPN on 07/25/18 [facility] CNOVon 07-25-2018 CNOV Office Visit (NCURF) TAWANNA REYES ([id number]) 1965 F Date Time Provider Department 07/25/18 2:00 PM CHARLES MAGALLON JR During your visit today, we recorded the following information about you: Weight Height 59 kg 1.575 m Charles Magallon Jr, MD 07/25/2018 1:48 PM Signed ESTABLISHED PATIENT OFFICE VISIT HPI Tawanna Arora Amy is a 52 year old female who presents sp sling 2 weeks prior. Still in retention. LAB: Creatinine Date Value Ref Range Status 06/28/2016 0.84 0.58 - 0.96 mg/dL Final No results found for: PSA Glucose, Urine (mg/dL) Date Value 02/14/2018 Neg Bilirubin, Urine (no units) Date Value 02/14/2018 Neg Ketones, Urine (no units) Date Value 02/14/2018 Neg Specific [place], Ur (no units) Date Value 02/14/2018 1.005 Hemoglobin/Blood,Ur (no units) Date Value 02/14/2018 Small pH, Urine (no units) Date Value 02/14/2018 6.5 Protein, Urine (mg/dL) Date Value 02/14/2018 Neg Urobilinogen, Urine (EU) Date Value 02/14/2018 Neg Nitrites (no units) Date Value 02/14/2018 Neg Leukocytes (no units) Date Value 02/14/2018 Mod Color/Appearance (comment:) Date Value 02/14/2018 Lt. Yellow/Cloudy MEDICATIONS: levoFLOXacin (LEVAQUIN) 750 mg tablet Take 1 tablet by mouth once daily for 7 days. [START ON 07/27/2018] ceFAZolin (ANCEF, KEFZOL) 1 gram injection Inject 2 g intravenously one time only for 1 dose. cephALEXin (KEFLEX) 500 mg capsule Take 1 capsule by mouth three times daily for 5 days. Ascorbic Acid (VITAMIN C) chew Take 500 mg by mouth once daily. ibuprofen (ADVIL) 200 mg tablet Take 200 mg by mouth every 6 hours as needed. Cranberry 400 mg cap Take by mouth once daily. Multivitamin capsule Take 1 capsule by mouth once daily. Jdhky-4-CMK-EPA-Fish Oil (FISH OIL) 1,000 mg (120 mg-180 mg) cap Take 2 g by mouth twice daily. Cholecalciferol, Vitamin D3, (VITAMIN D) 1,000 unit cap Take 1,000 Units by mouth once daily. REVIEW OF SYSTEMS Review of Systems Constitutional: Negative. Respiratory: Negative. Cardiovascular: Negative. Gastrointestinal: Negative. Genitourinary: Negative. Skin: Negative. Neurological: Negative. Psychiatric/Behavior al: Negative. 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 No masses, organomegaly Musculoskeletal: Negative Neuro: Negative Genitourinary: urine clear Impression: (N39.3) Stress incontinence in female (primary encounter diagnosis) Plan: Cysto, sling incision in OR monday Charles Magallon Jr, MD 07/25/2018 Referring Provider: TERRA MENDOZA [[id number]] Allergies As of Date: 07/25/2018 Noted Allergy Reaction CONTRAST DYE 05/17/2005 10 - Anaphylaxis Date Reviewed: 07/25/2018 Reviewed by: Charles Magallon Jr. - Fully Assessed Reason for Visit: Urinary Retention [228] Primary Visit Diagnosis:Stress incontinence in female [N39.3] Prescriptions as of 07/25/2018 Sig: LEVOFLOXACIN 750 MG TABLET Take 1 tablet by mouth once d* CEFAZOLIN 1 GRAM SOLUTION FOR* Inject 2 g intravenously one * CEPHALEXIN 500 MG CAPSULE Take 1 capsule by mouth three* ASCORBIC ACID (VITAMIN C) 500* Take 500 mg by mouth once john* IBUPROFEN 200 MG TABLET Take 200 mg by mouth every 6 * CRANBERRY 400 MG CAPSULE Take by mouth once daily. MULTIVITAMIN CAPSULE Take 1 capsule by mouth once * OMEGA 7-PAN-FRH-FISH OIL 1,00* Take 2 g by mouth twice daily. CHOLECALCIFEROL (VITAMIN D3) * Take 1,000 Units by mouth onc* Problem List As Of Date 07/25/2018 Noted Resolved RENAL AND URETERAL DIS NOS [N28.9] INVALID FOR* More... APPENDICITIS ACUTE GANGRENOUS [K35.80] INVALID FOR*02/24/2011 Hydronephrosis, bilateral [N13.30] INVALID FOR* Stress incontinence, female [N39.3] INVALID FOR*07/13/2018 More... Stress incontinence of urine [N39.3] INVALID FOR* MARY (stress urinary incontinence, female) [N39.*INVALID FOR* More... Disposition: Return in about 2 days (around 07/27/2018). Follow-up and Disposition History Recorded Encounter Status:Closed by CHARLES MAGALLON MD on 07/25/18 [facility] PROGRESSon 07-25-2018 PROGRESS HNO ID: [id number] Author: Charles Magallon Jr. Service: (none) Author Type: Physician Type: Progress Notes Filed: 07/25/2018 1:48 PM Note Text: ESTABLISHED PATIENT OFFICE VISIT HPI Tawanna Reyes is a 52 year old female who presents sp sling 2 weeks prior. Still in retention. LAB: Creatinine Date Value Ref Range Status 06/28/2016 0.84 0.58 - 0.96 mg/dL Final No results found for: PSA Glucose, Urine (mg/dL) Date Value 02/14/2018 Neg Bilirubin, Urine (no units) Date Value 02/14/2018 Neg Ketones, Urine (no units) Date Value 02/14/2018 Neg Specific [place], Ur (no units) Date Value 02/14/2018 1.005 Hemoglobin/Blood,Ur (no units) Date Value 02/14/2018 Small pH, Urine (no units) Date Value 02/14/2018 6.5 Protein, Urine (mg/dL) Date Value 02/14/2018 Neg Urobilinogen, Urine (EU) Date Value 02/14/2018 Neg Nitrites (no units) Date Value 02/14/2018 Neg Leukocytes (no units) Date Value 02/14/2018 Mod Color/Appearance (comment:) Date Value 02/14/2018 Lt. Yellow/Cloudy MEDICATIONS: levoFLOXacin (LEVAQUIN) 750 mg tablet Take 1 tablet by mouth once daily for 7 days. [START ON 07/27/2018] ceFAZolin (ANCEF, KEFZOL) 1 gram injection Inject 2 g intravenously one time only for 1 dose. cephALEXin (KEFLEX) 500 mg capsule Take 1 capsule by mouth three times daily for 5 days. Ascorbic Acid (VITAMIN C) chew Take 500 mg by mouth once daily. ibuprofen (ADVIL) 200 mg tablet Take 200 mg by mouth every 6 hours as needed. Cranberry 400 mg cap Take by mouth once daily. Multivitamin capsule Take 1 capsule by mouth once daily. Ekufq-3-BYP-EPA-Fish Oil (FISH OIL) 1,000 mg (120 mg-180 mg) cap Take 2 g by mouth twice daily. Cholecalciferol, Vitamin D3, (VITAMIN D) 1,000 unit cap Take 1,000 Units by mouth once daily. REVIEW OF SYSTEMS Review of Systems Constitutional: Negative. Respiratory: Negative. Cardiovascular: Negative. Gastrointestinal: Negative. Genitourinary: Negative. Skin: Negative. Neurological: Negative. Psychiatric/Behavior al: Negative. 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 No masses, organomegaly Musculoskeletal: Negative Neuro: Negative Genitourinary: urine clear Impression: (N39.3) Stress incontinence in female (primary encounter diagnosis) Plan: Cysto, sling incision in OR monday Charles Magallon Jr, MD 07/25/2018 [facility] Joelle 07-23-2018 [facility] Telephone (AKURGR) TAWANNA REYES ([id number]) 1965 F Date Time Provider Department 07/23/18 CHARLES MAGALLON JR During your visit today, we recorded the following information about you: Charles Magallon Jr, MD 07/23/2018 8:19 AM Signed Let pt know that final results of urine cx showed we need to change abx New script sent to pharmacy Can stop the initial abx I prescribed Humera Turner DRY CANS OPERATOR 07/23/2018 8:48 AM Signed Called spoke to pt gave her the results. Humera Turner [facility] Allergies As of Date: 07/23/2018 Noted Allergy Reaction CONTRAST DYE 05/17/2005 10 - Anaphylaxis Date Reviewed: 07/19/2018 Reviewed by: Mayur Yip [facility] - Fully Assessed Reason for Visit: Results [95] Order(s):levoFLOXaci n (LEVAQUIN) 750 mg tabletTake 1 tablet by mouth once daily for 7 days.Disp: 7 tabletRfl: 0 Prescriptions as of 07/23/2018 Sig: LEVOFLOXACIN 750 MG TABLET Take 1 tablet by mouth once d* CEFAZOLIN 1 GRAM SOLUTION FOR* Inject 2 g intravenously one * CEPHALEXIN 500 MG CAPSULE Take 1 capsule by mouth three* ASCORBIC ACID (VITAMIN C) 500* Take 500 mg by mouth once john* IBUPROFEN 200 MG TABLET Take 200 mg by mouth every 6 * CRANBERRY 400 MG CAPSULE Take by mouth once daily. MULTIVITAMIN CAPSULE Take 1 capsule by mouth once * OMEGA 0-XEW-SPS-FISH OIL 1,00* Take 2 g by mouth twice daily. CHOLECALCIFEROL (VITAMIN D3) * Take 1,000 Units by mouth onc* Problem List As Of Date 07/23/2018 Noted Resolved RENAL AND URETERAL DIS NOS [N28.9] INVALID FOR* More... APPENDICITIS ACUTE GANGRENOUS [K35.80] INVALID FOR*02/24/2011 Hydronephrosis, bilateral [N13.30] INVALID FOR* Stress incontinence, female [N39.3] INVALID FOR*07/13/2018 More... Stress incontinence of urine [N39.3] INVALID FOR* MARY (stress urinary incontinence, female) [N39.*INVALID FOR* More... Prescriptions ordered this encounter Disp Refills Start End LEVOFLOXACIN 750 MG TABLET 7 ta* 0 07/23/2018 07/30/2018 Route: ORAL Sig: Take 1 tablet by mouth once daily for 7 days. Encounter Status:Closed by CHARLES MAGALLON MD on 07/23/18 [facility] Joelle 07-20-2018 [facility] Telephone (AKPRAD) AMYTAWANNA Maite ([id number]) 1965 F Date Time Provider Department 07/20/18 CHARLES MAGALLON JR During your visit today, we recorded the following information about you: Charles Magallon Jr, MD 07/20/2018 11:19 AM Signed Let pt know that urine cx is preliminary growing bacteria I have sent abx to her pharmacy I would rec starting immediately Charline Brooks CMA 07/20/2018 11:33 AM Signed Patient advised and agreed. Per pt she would like a Diflucan sent to pharmacy also. Patient is worried about yeast infection over weekend and does not like to use the OTC choices. Charline Brooks [facility] Charles Magallon Jr, MD 07/23/2018 8:21 AM Signed Ok it is also sent to pharmacy Charles Magallon Jr, MD 07/23/2018 8:21 AM Signed Addended by: CHARLES MAGALLON MD on: 07/23/2018 08:21 AM Modules accepted: Orders Mayur Yip Cma 07/23/2018 11:44 AM Signed Spoke to pt and advised. She states she knows she has a yeast infection, she has been using OTC meds for now. Mayur Yip Cma Allergies As of Date: 07/20/2018 Noted Allergy Reaction CONTRAST DYE 05/17/2005 10 - Anaphylaxis Date Reviewed: 07/19/2018 Reviewed by: Mayur Yip Cma - Fully Assessed Reason for Visit: Results [95] Order(s):cephALEXin (KEFLEX) 500 mg capsuleTake 1 capsule by mouth three times daily for 5 days.Disp: 15 capsuleRfl: 0 fluconazole (DIFLUCAN) 150 mg tabletTake 1 tablet by mouth one time only for 1 dose.Disp: 1 tabletRfl: 0 Prescriptions as of 07/20/2018 Sig: FLUCONAZOLE 150 MG TABLET Take 1 tablet by mouth one ti* CEFAZOLIN 1 GRAM SOLUTION FOR* Inject 2 g intravenously one * CEPHALEXIN 500 MG CAPSULE Take 1 capsule by mouth three* ASCORBIC ACID (VITAMIN C) 500* Take 500 mg by mouth once john* IBUPROFEN 200 MG TABLET Take 200 mg by mouth every 6 * CRANBERRY 400 MG CAPSULE Take by mouth once daily. MULTIVITAMIN CAPSULE Take 1 capsule by mouth once * OMEGA 4-FGA-HPI-FISH OIL 1,00* Take 2 g by mouth twice daily. CHOLECALCIFEROL (VITAMIN D3) * Take 1,000 Units by mouth onc* Problem List As Of Date 07/20/2018 Noted Resolved RENAL AND URETERAL DIS NOS [N28.9] INVALID FOR* More... APPENDICITIS ACUTE GANGRENOUS [K35.80] INVALID FOR*02/24/2011 Hydronephrosis, bilateral [N13.30] INVALID FOR* Stress incontinence, female [N39.3] INVALID FOR*07/13/2018 More... Stress incontinence of urine [N39.3] INVALID FOR* MARY (stress urinary incontinence, female) [N39.*INVALID FOR* More... Prescriptions ordered this encounter Disp Refills Start End CEPHALEXIN 500 MG CAPSULE 15 c* 0 07/20/2018 07/25/2018 Route: ORAL Sig: Take 1 capsule by mouth three times daily for 5 days. FLUCONAZOLE 150 MG TABLET 1 ta* 0 07/23/2018 07/23/2018 Route: ORAL Sig: Take 1 tablet by mouth one time only for 1 dose. Encounter Status:Closed by CHARLES MAGALLON MD on 07/20/18 [facility] HOSPon 07-20-2018 HOSP Patient:Shon Reyes J MRN: Height:5' 2(1.575 m) Weight:130 lb (58.968 kg) Outpatient Medications as of 07/27/18: acetaminophen (TYLENOL) 325 mg cap levoFLOXacin (LEVAQUIN) 750 mg tablet ceFAZolin (ANCEF, KEFZOL) 1 gram injection Ascorbic Acid (VITAMIN C) chew ibuprofen (ADVIL) 200 mg tablet Cranberry 400 mg cap Multivitamin capsule Qyqtb-4-TYK-EPA-Fish Oil (FISH OIL) 1,000 mg (120 mg-180 mg) cap Cholecalciferol, Vitamin D3, (VITAMIN D) 1,000 unit cap Admission/Clinic Administered Medications as of 07/27/18: lactated ringers infusion fentaNYL 50 mcg/mL 25 mcg injection (SUBLIMAZE) HYDROmorphone 0.5 mg injection (DILAUDID) ondansetron (PF) 4 mg injection (ZOFRAN) oxyCODONE IR 5 mg tab(s) (ROXICODONE) lactated ringers infusion lidocaine 10 mg/mL (1 %) 1-2 mg injection (XYLOCAINE) lactated ringers infusion ceFAZolin iv piggyback 2 g in D5W (iso-osmotic) 100 mL (ANCEF) Problem List: Unspecified disorder of kidney and ureter [N28.9] Hydronephrosis, bilateral [N13.30] MARY (stress urinary incontinence, female) [N39.3] Allergies: Contrast Dye Date Verified: 07/27/18 Lab Values No results within the last 30 days for the following basenames: K,HCT Progress Notes (UR[facility]): Charles Magallon Jr, MD 07/25/2018 1:48 PM Signed ESTABLISHED PATIENT OFFICE VISIT HPI Tawanna Reyes is a 52 year old female who presents sp sling 2 weeks prior. Still in retention. LAB: Creatinine Date Value Ref Range Status 06/28/2016 0.84 0.58 - 0.96 mg/dL Final No results found for: PSA Glucose, Urine (mg/dL) Date Value 02/14/2018 Neg Bilirubin, Urine (no units) Date Value 02/14/2018 Neg Ketones, Urine (no units) Date Value 02/14/2018 Neg Specific [place], Ur (no units) Date Value 02/14/2018 1.005 Hemoglobin/Blood,Ur (no units) Date Value 02/14/2018 Small pH, Urine (no units) Date Value 02/14/2018 6.5 Protein, Urine (mg/dL) Date Value 02/14/2018 Neg Urobilinogen, Urine (EU) Date Value 02/14/2018 Neg Nitrites (no units) Date Value 02/14/2018 Neg Leukocytes (no units) Date Value 02/14/2018 Mod Color/Appearance (comment:) Date Value 02/14/2018 Lt. Yellow/Cloudy MEDICATIONS: levoFLOXacin (LEVAQUIN) 750 mg tablet Take 1 tablet by mouth once daily for 7 days. [START ON 07/27/2018] ceFAZolin (ANCEF, KEFZOL) 1 gram injection Inject 2 g intravenously one time only for 1 dose. cephALEXin (KEFLEX) 500 mg capsule Take 1 capsule by mouth three times daily for 5 days. Ascorbic Acid (VITAMIN C) chew Take 500 mg by mouth once daily. ibuprofen (ADVIL) 200 mg tablet Take 200 mg by mouth every 6 hours as needed. Cranberry 400 mg cap Take by mouth once daily. Multivitamin capsule Take 1 capsule by mouth once daily. Rwzxv-8-HTC-EPA-Fish Oil (FISH OIL) 1,000 mg (120 mg-180 mg) cap Take 2 g by mouth twice daily. Cholecalciferol, Vitamin D3, (VITAMIN D) 1,000 unit cap Take 1,000 Units by mouth once daily. REVIEW OF SYSTEMS Review of Systems Constitutional: Negative. Respiratory: Negative. Cardiovascular: Negative. Gastrointestinal: Negative. Genitourinary: Negative. Skin: Negative. Neurological: Negative. Psychiatric/Behavior al: Negative. 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 No masses, organomegaly Musculoskeletal: Negative Neuro: Negative Genitourinary: urine clear Impression: (N39.3) Stress incontinence in female (primary encounter diagnosis) Plan: Cysto, sling incision in OR monday Charles Magallon Jr, MD 07/25/2018 Progress Notes ([facility]OL [facility]): Charles Magallon Jr, MD 07/23/2018 8:19 AM Signed Let pt know that final results of urine cx showed we need to change abx New script sent to pharmacy Can stop the initial abx I prescribed Humera Turner DRY CANS OPERATOR 07/23/2018 8:48 AM Signed Called spoke to pt gave her the results. Humera Turner DRY CANS OPERATOR [facility] PROGRESSon 07-20-2018 PROGRESS HNO ID: [id number] Author: Charles Magallon Jr. Service: (none) Author Type: Physician Type: Progress Notes Filed: 07/20/2018 9:10 AM Note Text: ESTABLISHED PATIENT OFFICE VISIT HPI Tawanna Reyes is a 52 year old female who presents 1 week sp desera sling. In retention. pvr 1000cc today. Cath replaced. Discussed options for management. Repeat VT vs. Cutting sling. Pt very tearful and distraught over having the catheter for the last week LAB: Creatinine Date Value Ref Range Status 06/28/2016 0.84 0.58 - 0.96 mg/dL Final No results found for: PSA Glucose, Urine (mg/dL) Date Value 02/14/2018 Neg Bilirubin, Urine (no units) Date Value 02/14/2018 Neg Ketones, Urine (no units) Date Value 02/14/2018 Neg Specific [place], Ur (no units) Date Value 02/14/2018 1.005 Hemoglobin/Blood,Ur (no units) Date Value 02/14/2018 Small pH, Urine (no units) Date Value 02/14/2018 6.5 Protein, Urine (mg/dL) Date Value 02/14/2018 Neg Urobilinogen, Urine (EU) Date Value 02/14/2018 Neg Nitrites (no units) Date Value 02/14/2018 Neg Leukocytes (no units) Date Value 02/14/2018 Mod Color/Appearance (comment:) Date Value 02/14/2018 Lt. Yellow/Cloudy MEDICATIONS: Ascorbic Acid (VITAMIN C) chew Take 500 mg by mouth once daily. ibuprofen (ADVIL) 200 mg tablet Take 200 mg by mouth every 6 hours as needed. Cranberry 400 mg cap Take by mouth once daily. Multivitamin capsule Take 1 capsule by mouth once daily. Lblbz-6-RBL-EPA-Fish Oil (FISH OIL) 1,000 mg (120 mg-180 mg) cap Take 2 g by mouth twice daily. Cholecalciferol, Vitamin D3, (VITAMIN D) 1,000 unit cap Take 1,000 Units by mouth once daily. REVIEW OF SYSTEMS Review of Systems Constitutional: Negative. Respiratory: Negative. Cardiovascular: Negative. Gastrointestinal: Negative. Genitourinary: Negative. Skin: Negative. Neurological: Negative. Psychiatric/Behavior al: Negative. 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 No masses, organomegaly Musculoskeletal: Negative Neuro: Negative Genitourinary: urine clear Impression: (N39.3) Stress incontinence in female (primary encounter diagnosis) Plan: VT next week Charles Magallon Jr, MD 07/20/2018 [facility] CNNURSEon 07-19-2018 CNNURSE Nurse Visit (AKURFL) AMY,TAWANNA Arora ([id number]) 1965 F Date Time Provider Department 07/19/18 8:30 AM NURSE UROL JAN SABILLON During your visit today, we recorded the following information about you: Blood pressure Weight Height 120/74 61.2 kg 1.575 m Kalie Lawson LPN 07/19/2018 9:06 AM Signed Patient is in today for a catheter removal and later PVR. Balloon deflated and catheter removed intact without difficulty. Patient has no co pain or discomfort after removal. Patient advised to continue drinking fluids. Patient is to RTO as scheduled for a PVR if able to urinate. If patient is unable to urinate, patient is to RCTO at 12:30. Patient voiced understanding of all instructions. Kalie Lawson LPN Referring Provider: TERRA MENDOZA [[id number]] Allergies As of Date: 07/19/2018 Noted Allergy Reaction CONTRAST DYE 05/17/2005 10 - Anaphylaxis Date Reviewed: 07/19/2018 Reviewed by: Kalie Lawson LPN - Fully Assessed Reason for Visit: Rodriguez [[id number]] Cmt: cath removal Reason For Visit History Recorded Primary Visit Diagnosis:Retention of urine, unspecified [R33.9] Prescriptions as of 07/19/2018 Sig: ASCORBIC ACID (VITAMIN C) 500* Take 500 mg by mouth once john* CRANBERRY 400 MG CAPSULE Take by mouth once daily. IBUPROFEN 200 MG TABLET Take 200 mg by mouth every 6 * MULTIVITAMIN CAPSULE Take 1 capsule by mouth once * OMEGA 0-VWF-JAS-FISH OIL 1,00* Take 2 g by mouth twice daily. CHOLECALCIFEROL (VITAMIN D3) * Take 1,000 Units by mouth onc* Problem List As Of Date 07/19/2018 Noted Resolved RENAL AND URETERAL DIS NOS [N28.9] INVALID FOR* More... APPENDICITIS ACUTE GANGRENOUS [K35.80] INVALID FOR*02/24/2011 Hydronephrosis, bilateral [N13.30] INVALID FOR* Stress incontinence, female [N39.3] INVALID FOR*07/13/2018 More... Stress incontinence of urine [N39.3] INVALID FOR* Visit Notes: >> Kalie Lawson LPN Norma Jul 19, 2018 8:37 AM Status: Signed Patient is in today for a catheter removal and later PVR. Balloon deflated and catheter removed intact without difficulty. Patient has no co pain or discomfort after removal. Patient advised to continue drinking fluids. Patient is to RTO as scheduled for a PVR if able to urinate. If patient is unable to urinate, patient is to RCTO at 12:30. Patient voiced understanding of all instructions. Kalie Lulu TAPIA Encounter Status:Closed by KALIE LAWSON LPN on 07/19/18 [facility] CNOVon 07-19-2018 CNOV Office Visit (AKURFL) AMYTAWANNA CALDERON ([id number]) 1965 F Date Time Provider Department 07/19/18 3:30 PM CHARLES MAGALLON JR During your visit today, we recorded the following information about you: Weight Height 61.2 kg 1.575 m Nohemy Gilbert RN, RN 07/19/2018 5:06 PM Signed Patient is back in today for a PVR after having her catheter taken out this AM. Patient co difficulty or inability to urinate. PVR result is >999. Dr. Magallon advised and order received to replace catheter. 16 Fr. Catheter placed using sterile technique. Balloon filled with 10ml of water. 1125cc urine drained. New leg bag attached. Good urine flow noted into bag. Patient had no co pain or discomfort during or after procedure. Patient advised to contact this office at ([phone]) if she has any sudden pain or discomfort during 08:00 to 16:00. If after those hours, patient should go to the emergency room. Patient voiced understanding of all instructions. ABBIE Carmona Jr, MD 07/20/2018 9:10 AM Signed ESTABLISHED PATIENT OFFICE VISIT HPI Tawanna Reyes is a 52 year old female who presents 1 week sp desera sling. In retention. pvr 1000cc today. Cath replaced. Discussed options for management. Repeat VT vs. Cutting sling. Pt very tearful and distraught over having the catheter for the last week LAB: Creatinine Date Value Ref Range Status 06/28/2016 0.84 0.58 - 0.96 mg/dL Final No results found for: PSA Glucose, Urine (mg/dL) Date Value 02/14/2018 Neg Bilirubin, Urine (no units) Date Value 02/14/2018 Neg Ketones, Urine (no units) Date Value 02/14/2018 Neg Specific [place], Ur (no units) Date Value 02/14/2018 1.005 Hemoglobin/Blood,Ur (no units) Date Value 02/14/2018 Small pH, Urine (no units) Date Value 02/14/2018 6.5 Protein, Urine (mg/dL) Date Value 02/14/2018 Neg Urobilinogen, Urine (EU) Date Value 02/14/2018 Neg Nitrites (no units) Date Value 02/14/2018 Neg Leukocytes (no units) Date Value 02/14/2018 Mod Color/Appearance (comment:) Date Value 02/14/2018 Lt. Yellow/Cloudy MEDICATIONS: Ascorbic Acid (VITAMIN C) chew Take 500 mg by mouth once daily. ibuprofen (ADVIL) 200 mg tablet Take 200 mg by mouth every 6 hours as needed. Cranberry 400 mg cap Take by mouth once daily. Multivitamin capsule Take 1 capsule by mouth once daily. Pbijl-2-NKQ-EPA-Fish Oil (FISH OIL) 1,000 mg (120 mg-180 mg) cap Take 2 g by mouth twice daily. Cholecalciferol, Vitamin D3, (VITAMIN D) 1,000 unit cap Take 1,000 Units by mouth once daily. REVIEW OF SYSTEMS Review of Systems Constitutional: Negative. Respiratory: Negative. Cardiovascular: Negative. Gastrointestinal: Negative. Genitourinary: Negative. Skin: Negative. Neurological: Negative. Psychiatric/Behavior al: Negative. 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 No masses, organomegaly Musculoskeletal: Negative Neuro: Negative Genitourinary: urine clear Impression: (N39.3) Stress incontinence in female (primary encounter diagnosis) Plan: VT next week Charles Magallon Jr, MD 07/20/2018 Referring Provider: TERRA MENDOZA [[id number]] Allergies As of Date: 07/19/2018 Noted Allergy Reaction CONTRAST DYE 05/17/2005 10 - Anaphylaxis Date Reviewed: 07/19/2018 Reviewed by: Mayur Yip Metallurgical Lab Technician - Fully Assessed Reason for Visit: Erectile Dysfunction [339] Primary Visit Diagnosis:Stress incontinence in female [N39.3] Order(s):URINE CULTURE [SQURCUL] Order #: [id number] RUST MSR POST-VOID RESID URINE [[id number]] Order #: [id number] Prescriptions as of 07/19/2018 Sig: ASCORBIC ACID (VITAMIN C) 500* Take 500 mg by mouth once john* IBUPROFEN 200 MG TABLET Take 200 mg by mouth every 6 * CRANBERRY 400 MG CAPSULE Take by mouth once daily. MULTIVITAMIN CAPSULE Take 1 capsule by mouth once * OMEGA 4-IRN-HIE-FISH OIL 1,00* Take 2 g by mouth twice daily. CHOLECALCIFEROL (VITAMIN D3) * Take 1,000 Units by mouth onc* Problem List As Of Date 07/19/2018 Noted Resolved RENAL AND URETERAL DIS NOS [N28.9] INVALID FOR* More... APPENDICITIS ACUTE GANGRENOUS [K35.80] INVALID FOR*02/24/2011 Hydronephrosis, bilateral [N13.30] INVALID FOR* Stress incontinence, female [N39.3] INVALID FOR*07/13/2018 More... Stress incontinence of urine [N39.3] INVALID FOR* Visit Notes: >> Nohemy (Abbie) ABBIE Gilbert [facility] Jul 19, 2018 5:05 PM Status: Signed Patient is back in today for a PVR after having her catheter taken out this AM. Patient co difficulty or inability to urinate. PVR result is >999. Dr. Magallon advised and order received to replace catheter. 16 Fr. Catheter placed using sterile technique. Balloon filled with 10ml of water. 1125cc urine drained. New leg bag attached. Good urine flow noted into bag. Patient had no co pain or discomfort during or after procedure. Patient advised to contact this office at ([phone]) if she has any sudden pain or discomfort during 08:00 to 16:00. If after those hours, patient should go to the emergency room. Patient voiced understanding of all instructions. Nohemy Gilbert RN Disposition: Return in about 1 week (around 07/26/2018). Follow-up and Disposition History Recorded Encounter Status:Closed by CHARLES MAGALLON MD on 07/20/18 Normal [facility] Cult Urineon 07-19-2018 Cult Urine Test performed at [facility] ORGANISM: Enterococcus faecalis (ID: 1) >100,000 CFU/ml Normal [facility] Comment on above: Performed By: #### C _URI #### [place] [address] Joelle 07-18-2018 CNPN Telephone (RAMANDEEP) TAWANNA REYES ([id number]) 1965 F Date Time Provider Department 07/18/18 SARAHY ALLEN During your visit today, we recorded the following information about you: Nelida Freire 07/18/2018 8:08 AM Signed July 18, 2018 8:06 AM Patient had rodriguez removed on 07/16/18 with you in office. She went to [place] ER on 07/17/18 and had to have a rodriguez placed again for retention. Please advise for voiding trial-EMA Magallon Jr, MD 07/18/2018 9:03 AM Signed Needs repeat voiding trial or monday Tracee Freire 07/18/2018 11:17 AM Signed As in this week correct? Allergies As of Date: 07/18/2018 Noted Allergy Reaction CONTRAST DYE 05/17/2005 10 - Anaphylaxis Date Reviewed: 07/16/2018 Reviewed by: Sarahy Allen - Fully Assessed Reason for Visit: Appointment [186] Prescriptions as of 07/18/2018 Sig: CHOLECALCIFEROL (VITAMIN D3) * Take 1,000 Units by mouth onc* CRANBERRY 400 MG CAPSULE Take by mouth once daily. IBUPROFEN 200 MG TABLET Take 200 mg by mouth every 6 * MULTIVITAMIN CAPSULE Take 1 capsule by mouth once * OMEGA 4-VVU-TUM-FISH OIL 1,00* Take 2 g by mouth twice daily. OXYCODONE-ACETAMINOP HEN 5 MG-* Take 1 tablet by mouth every * Problem List As Of Date 07/18/2018 Noted Resolved RENAL AND URETERAL DIS NOS [N28.9] INVALID FOR* More... APPENDICITIS ACUTE GANGRENOUS [K35.80] INVALID FOR*02/24/2011 Hydronephrosis, bilateral [N13.30] INVALID FOR* Stress incontinence, female [N39.3] INVALID FOR*07/13/2018 More... Stress incontinence of urine [N39.3] INVALID FOR* Encounter Status:Closed by NELIDA NULL on 07/18/18 Normal [facility] .Urinalysis Microscopic (AO) on 07-16-2018 RBC Test strip #/vol (U) LOADED Invalid Interpretation Code None Seen [facility] ([place]) Comment on above: Performed By: #### U A, UAMICAO ####[place] [address] UA Squam Epithelial None Seen Normal None Seen [facility] ([place]) Comment on above: Performed By: #### U A, UAMICAO ####[facility] [place] [address] UA WBC None Seen Normal None Seen [facility] ([place]) Comment on above: Performed By: #### Earnest Bray UAMICAO ####[place] [id number] [place] [id number] EMERALDOVsteve 07-16-2018 CNOV Office Visit (AKURFNatanael) AMYTAWANNA CALDERON ([id number]) 1965 F Date Time Provider Department 07/16/18 8:30 AM SARAHY ALLEN During your visit today, we recorded the following information about you: Blood pressure Weight Height 120/70 61.2 kg 1.575 m Sarahy Allen PA-C 07/16/2018 9:49 AM Signed ESTABLISHED PATIENT OFFICE VISIT HISTORY OF PRESENT ILLNESS: Tawanna Reyes is a 52 year old female, Ht 157.5 cm (5' 2) BMI 24.69 kg/m2 with a PMH significant for s/p sling surgery. Pt is here for catheter removal, voiding trial. Clear urine in drainage bag. Pt denies fever, chills, hematuria. . LAB: Creatinine Date Value Ref Range Status 06/28/2016 0.84 0.58 - 0.96 mg/dL Final No results found for: PSA Glucose, Urine (mg/dL) Date Value 02/14/2018 Neg Bilirubin, Urine (no units) Date Value 02/14/2018 Neg Ketones, Urine (no units) Date Value 02/14/2018 Neg Specific [place], Ur (no units) Date Value 02/14/2018 1.005 Hemoglobin/Blood,Ur (no units) Date Value 02/14/2018 Small pH, Urine (no units) Date Value 02/14/2018 6.5 Protein, Urine (mg/dL) Date Value 02/14/2018 Neg Urobilinogen, Urine (EU) Date Value 02/14/2018 Neg Nitrites (no units) Date Value 02/14/2018 Neg Leukocytes (no units) Date Value 02/14/2018 Mod Color/Appearance (comment:) Date Value 02/14/2018 Lt. Yellow/Cloudy MEDICATIONS: Cholecalciferol, Vitamin D3, (VITAMIN D) 1,000 unit cap Take 1,000 Units by mouth once daily. Cranberry 400 mg cap Take by mouth once daily. ibuprofen (ADVIL) 200 mg tablet Take 200 mg by mouth every 6 hours as needed. Multivitamin capsule Take 1 capsule by mouth once daily. Hdtzv-7-PSL-EPA-Fish Oil (FISH OIL) 1,000 mg (120 mg-180 mg) cap Take 2 g by mouth twice daily. oxyCODONE-acetaminop hen (PERCOCET) 5-325 mg tablet Take 1 tablet by mouth every 6 hours as needed for Pain for up to 5 days. Review of Systems Constitutional: Negative for chills, fatigue and fever. Respiratory: Negative for shortness of breath and wheezing. Gastrointestinal: Negative for abdominal pain, constipation, diarrhea and nausea. Genitourinary: See HPI Neurological: Negative for dizziness, light-headedness and headaches. Psychiatric/Behavior al: Negative for behavioral problems. The patient is not nervous/anxious. 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 Before catheter was removed, urinary drainage bag was removed, bladder was filled with sterile water until pt had urge to void. Rodriguez catheter removed. Patient instructed to call me if he has trouble voiding. Patient tolerated procedure well. After catheter was removed, pt voided 200cc of urine, felt empty after voiding. ASSESSMENT/PLAN: 1. Stress incontinence of urine - ICD9: [id number], ICD10: N39.3 Follow up as scheduled with dr. Magallon. Sarahy Allen PA-C Referring Provider: TERRA MENDOZA [[id number]] Allergies As of Date: 07/16/2018 Noted Allergy Reaction CONTRAST DYE 05/17/2005 10 - Anaphylaxis Date Reviewed: 07/16/2018 Reviewed by: Sarahy Allen - Fully Assessed Reason for Visit: Urinary Retention [228] Primary Visit Diagnosis:Stress incontinence of urine [N39.3] Prescriptions as of 07/16/2018 Sig: CHOLECALCIFEROL (VITAMIN D3) * Take 1,000 Units by mouth onc* CRANBERRY 400 MG CAPSULE Take by mouth once daily. IBUPROFEN 200 MG TABLET Take 200 mg by mouth every 6 * MULTIVITAMIN CAPSULE Take 1 capsule by mouth once * OMEGA 1-IJU-KVM-FISH OIL 1,00* Take 2 g by mouth twice daily. OXYCODONE-ACETAMINOP HEN 5 MG-* Take 1 tablet by mouth every * Problem List As Of Date 07/16/2018 Noted Resolved RENAL AND URETERAL DIS NOS [N28.9] INVALID FOR* More... APPENDICITIS ACUTE GANGRENOUS [K35.80] INVALID FOR*02/24/2011 Hydronephrosis, bilateral [N13.30] INVALID FOR* Stress incontinence, female [N39.3] INVALID FOR*07/13/2018 More... Stress incontinence of urine [N39.3] INVALID FOR* Disposition: Return in about 2 weeks (around 07/30/2018) for post op. Follow-up and Disposition History Recorded Encounter Status:Closed by SARAHY ALLEN on 07/16/18 [facility] PROGRESSon 07-16-2018 PROGRESS HNO ID: [id number] Author: Sarahy Allen Service: (none) Author Type: Physician Pigment Supplier Type: Progress Notes Filed: 07/16/2018 9:49 AM Note Text: ESTABLISHED PATIENT OFFICE VISIT HISTORY OF PRESENT ILLNESS: Tawanna Reyes is a 52 year old female, Ht 157.5 cm (5' 2) BMI 24.69 kg/m2 with a PMH significant for s/p sling surgery. Pt is here for catheter removal, voiding trial. Clear urine in drainage bag. Pt denies fever, chills, hematuria. . LAB: Creatinine Date Value Ref Range Status 06/28/2016 0.84 0.58 - 0.96 mg/dL Final No results found for: PSA Glucose, Urine (mg/dL) Date Value 02/14/2018 Neg Bilirubin, Urine (no units) Date Value 02/14/2018 Neg Ketones, Urine (no units) Date Value 02/14/2018 Neg Specific [place], Ur (no units) Date Value 02/14/2018 1.005 Hemoglobin/Blood,Ur (no units) Date Value 02/14/2018 Small pH, Urine (no units) Date Value 02/14/2018 6.5 Protein, Urine (mg/dL) Date Value 02/14/2018 Neg Urobilinogen, Urine (EU) Date Value 02/14/2018 Neg Nitrites (no units) Date Value 02/14/2018 Neg Leukocytes (no units) Date Value 02/14/2018 Mod Color/Appearance (comment:) Date Value 02/14/2018 Lt. Yellow/Cloudy MEDICATIONS: Cholecalciferol, Vitamin D3, (VITAMIN D) 1,000 unit cap Take 1,000 Units by mouth once daily. Cranberry 400 mg cap Take by mouth once daily. ibuprofen (ADVIL) 200 mg tablet Take 200 mg by mouth every 6 hours as needed. Multivitamin capsule Take 1 capsule by mouth once daily. Wshfz-8-XKF-EPA-Fish Oil (FISH OIL) 1,000 mg (120 mg-180 mg) cap Take 2 g by mouth twice daily. oxyCODONE-acetaminop hen (PERCOCET) 5-325 mg tablet Take 1 tablet by mouth every 6 hours as needed for Pain for up to 5 days. Review of Systems Constitutional: Negative for chills, fatigue and fever. Respiratory: Negative for shortness of breath and wheezing. Gastrointestinal: Negative for abdominal pain, constipation, diarrhea and nausea. Genitourinary: See HPI Neurological: Negative for dizziness, light-headedness and headaches. Psychiatric/Behavior al: Negative for behavioral problems. The patient is not nervous/anxious. 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 Before catheter was removed, urinary drainage bag was removed, bladder was filled with sterile water until pt had urge to void. Rodriguez catheter removed. Patient instructed to call me if he has trouble voiding. Patient tolerated procedure well. After catheter was removed, pt voided 200cc of urine, felt empty after voiding. ASSESSMENT/PLAN: 1. Stress incontinence of urine - ICD9: [id number], ICD10: N39.3 Follow up as scheduled with dr. Magallon. Sraahy Allen PA-C [facility] Color Nom (U) Yellow Normal [facility] ([place]) Comment on above: Performed By: #### U A, UAMICAO ####[address] [address] Glucose mass conc (U) Negative Normal Negative l [facility] ([place]) Comment on above: Performed By: #### U A, UAMICAO ####[place] [id number] [place] [address] Ketones Ql (U) Negative Normal Negative [facility] ([place]) Comment on above: Performed By: #### U A, UAMICAO ####[place] [id number] [place] [address] UA Appear Clear Normal Clear [facility] ([place]) Comment on above: Performed By: #### U A, UAMICAO ####[address] [address] UA Blood Large Invalid Interpretation Code Negative [facility] ([place]) Comment on above: Performed By: #### U A, UAMICAO ####[address] [address] UA Leuk Est Negative Normal Negative [facility] ([place]) Comment on above: Performed By: #### U A, UAMICAO ####[place] [address] UA Nitrite Negative Normal Negative [facility] ([place]) Comment on above: Performed By: #### U A, UAMICAO ####[place] [address] UA pH 7.5 Normal [facility] ([place]) Comment on above: Performed By: #### U A, UAMICAO ####[place] [address] UA Protein Negative Normal Negative [facility] ([place]) Comment on above: Performed By: #### U A, UAMICAO ####[place] [address] UA Spec Grav 1.005 Invalid Interpretation Code [facility] ([place]) Comment on above: Performed By: #### U A, UAMICAO ####[place] [address] UA Specimen Type Catheter Normal [facility] ([place]) Comment on above: Performed By: #### U A, UAMICAO ####[place] [address] UA Urobilinogen 0.2 E.U./dL Normal [facility] ([place]) Comment on above: Performed By: #### U A, UAMICAO ####[place] [address] Urobilinogen Test strip Qn (U) Negative Normal Negative [facility] ([place]) Comment on above: Performed By: #### U A, UAMICAO ####[place] [address] ANES Kevin 07-13-2018 ANES POST HNO ID: [id number] Author: Lena Montemayor Service: Anesthesiology Author Type: Physician Type: Anesthesia PostOp Filed: 07/13/2018 4:52 PM Note Text: POST ANESTHESIA EVALUATION NOTE SERVICE DATE: 07/13/2018 SERVICE TIME: 4:52 PM : 1965 Vitals: 07/13/18 1111 07/13/18 1330 Temp: 36.6 ?C (97.8 ?F) 36.2 ?C (97.2 ?F) 07/13/18 1353 07/13/18 1410 07/13/18 1422 07/13/18 1440 BP: 121/71 136/69 132/65 138/67 07/13/18 1400 07/13/18 1410 07/13/18 1422 07/13/18 1440 Pulse: 65 63 (!) 52 60 07/13/18 1400 07/13/18 1410 07/13/18 1422 07/13/18 1440 Resp: 13 19 20 18 07/13/18 1400 07/13/18 1410 07/13/18 1422 07/13/18 1440 SpO2: 99% 100% 98% 98% Validated Vital Signs: Yes POST ANES STATUS: No apparent anesthetic complications. The patient is appropriately hydrated with stable respiratory and cardiovascular status. Patient has safe and adequate airway control. The patient has appropriate pain relief and no significant post operative nausea or vomiting. The patient has achieved baseline mental status. Intra-Operative Events: No Significant Anesthesia Events Further assessment by Anesthesia Service: None Other Remarks: SIGNATURE: Lena Montemayor MD PATIENT NAME: Tawanna Reyes DATE: July 13, 2018 TIME: 4:52 PM PAGER/CONTACT #: [phone] [facility] ANES PREOPon 07-13-2018 ANES PREOP HNO ID: [id number] Author: Lena Montemayor Service: Anesthesiology Author Type: Physician Type: Anesthesia PreOp Filed: 07/13/2018 11:13 AM Note Text: ANESTHESIOLOGY DAY OF SURGERY NOTE SERVICE DATE: 07/13/2018 SERVICE TIME: 10:57 AM : 1965 Procedure(s) (LRB): SUSPENSION DESERA BLADDER SLING (N/A) CYSTOSCOPY (N/A) Surgeon(s): Charles Magallon Jr. Estimated body mass index is 24.69 kg/m? as calculated from the following: Height as of this encounter: 157.5 cm (5' 2). Weight as of this encounter: 61.2 kg (135 lb). Most recent hematocrit and potassium results: Potassium 3.7 06/28/2016 52yo female with MARY, bilateral hydronephrosis secondary to congenital UPJ obstruction ANES DOS/PREOP NOTE: Vitals: 07/12/18 1443 07/13/18 1111 BP: 119/71 Pulse: (!) 56 Resp: 20 Temp: 36.6 ?C (97.8 ?F) SpO2: 96% Weight: 61.2 kg (135 lb) Height: 157.5 cm (5' 2) ACTIVE PROBLEM LIST Unspecified Disorder of Kidney and Ureter Hydronephrosis, Bilateral Stress Incontinence, Female PAST MEDICAL HISTORY Diagnosis Date - Snoring - UPJ obstruction, congenital PAST SURGICAL HISTORY Procedure Laterality Date - COLONOSCOP W/ OR W/O [facility] SPEC 01/25/2018 Colonoscopy - DANDC, DIAG AND/OR THERAPEUTIC Dilation AND curettage, x 2 - LAPAROSCOPY, SURGICAL, APPENDECTOMY 09/17/07 - PAST SURGICAL HISTORY OF 1998 Tubal , right salpingectomy FAMILY HISTORY Problem Relation Age of Onset - Cancer Father Bladder Social History: Social History Substance Use Topics - Smoking status: Never Smoker - Smokeless tobacco: Never Used - Alcohol use Yes Comment: rarely No current facility-administere d medications on file prior to encounter. Current Outpatient Prescriptions on File Prior to Encounter: Cranberry 400 mg cap Take by mouth once daily. ceFAZolin (ANCEF, KEFZOL) 1 gram injection Inject 2 g intravenously one time only for 1 dose. Cholecalciferol, Vitamin D3, (VITAMIN D) 1,000 unit cap Take 1,000 Units by mouth once daily. Multivitamin capsule Take 1 capsule by mouth once daily. Ytvny-1-NRA-EPA-Fish Oil (FISH OIL) 1,000 mg (120 mg-180 mg) cap Take 2 g by mouth twice daily. Current Facility-Administere d Medications: lactated ringers infusion 5-30 mL/hr INTRAVENOUS CONTINUOUS Sarahy K (Balancing Machine Set Up Worker) Duff Last Rate: 30 mL/hr at 07/13/18 1055 30 mL/hr at 07/13/18 1055 lidocaine 10 mg/mL (1 %) 1-2 mg injection (XYLOCAINE) 0.1-0.2 mL INTRADERMAL PRN Sarahy Juarez Allergies: ALLERGIES Allergen Reactions - Contrast Dye Anaphylaxis DOS EXAM: Adequate NPO status: Yes Anesthetic risks, benefits, alternatives, personnel and consent discussed: Yes Patient agrees to proceed: Yes Previous Anesthesia: No history of adverse event. Airway Assessment: MP 2; Neck ROM: Full ROM without neurologic symptoms; Airway Evaluation: No significant abnormalities Symptoms of Sleep Apnea: None Dentition: Teeth intact Additional Physical Exam: Lungs: Patient health status unchanged since recent history and physical. See history and physical for exam findings. Cardiac: Patient health status unchanged since recent history and physical. See history and physical for exam findings. Additional Pertinent Findings: N/A Blood Products: Not anticipated for this procedure. Anesthetic Plan: General, Standard ASA Monitors Pain Management Plan: Parenteral or Oral ASA Class: 3 Other Medical Problems: None Chronic Beta Maryan medication administered within 24 hours: N/A I have interviewed and examined the patient. I have reviewed the medical record and/or the pre-anesthesia evaluation, pertinent labs, and test results. Significant changes in the patient's condition since the History and Physical, not otherwise documented in primary service progress notes: No This contains updated information obtained within 48 hours of Surgery/Procedure. SIGNATURE: Lena Montemayor MD PATIENT NAME: Tawanna Reyes DATE: July 13, 2018 TIME: 10:56 AM CSN: [id number] [facility] 07-13-2018 [facility] Telephone (AKPRAD) TAWANNA REYES ([id number]) 1965 F Date Time Provider Department 07/13/18 CHARLES MAGALLON JR During your visit today, we recorded the following information about you: Charles Magallon Jr, MD 07/13/2018 1:25 PM Signed HANDw or 07/13/18 Fu with me 2 weeks Allergies As of Date: 07/13/2018 Noted Allergy Reaction CONTRAST DYE 05/17/2005 10 - Anaphylaxis Date Reviewed: 07/13/2018 Reviewed by: Alisha Xiong) ABBIE Casanova - Fully Assessed Reason for Visit: Appointment [186] Prescriptions as of 07/13/2018 Sig: CEFAZOLIN 1 GRAM SOLUTION FOR* Inject 2 g intravenously one * CHOLECALCIFEROL (VITAMIN D3) * Take 1,000 Units by mouth onc* CRANBERRY 400 MG CAPSULE Take by mouth once daily. IBUPROFEN 200 MG TABLET Take 200 mg by mouth every 6 * MULTIVITAMIN CAPSULE Take 1 capsule by mouth once * OMEGA 6-SIQ-DUT-FISH OIL 1,00* Take 2 g by mouth twice daily. OXYCODONE-ACETAMINOP HEN 5 MG-* Take 1 tablet by mouth every * Problem List As Of Date 07/13/2018 Noted Resolved RENAL AND URETERAL DIS NOS [N28.9] INVALID FOR* More... APPENDICITIS ACUTE GANGRENOUS [K35.80] INVALID FOR*02/24/2011 Hydronephrosis, bilateral [N13.30] INVALID FOR* Stress incontinence, female [N39.3] INVALID FOR*07/13/2018 More... Encounter Status:Closed by CHARLES MAGALLON MD on 07/13/18 Normal [facility] HCG,Totalon 07-13-2018 HCG Qn 1.0 m[IU]/mL Normal [facility] Comment on above: Result Comment: Male <2 Non- female <6 female 0-1 Week 0 - 50 1-2 Weeks 40 - 300 2-3 Weeks 100 - 1000 3-4 Weeks 500 - 6000 1-2 Months 5000 - [id number] 2-3 Months 90[address] - [id number] 2nd Trimester 3000 - 94245 The concentration of hCG in maternal serum rises rapidly in early . hCG levels less than 25 mIU/mL do NOT exclude . A further sample should be tested after 48 hours if is suspected. Performed By: #### M HCG #### [place] [address] HISTORY PHYSICALon 8 HISTORY PHYSICAL HNO ID: [id number] Author: Sarahy Cavanaugh (Suzan) Larry Service: (none) Author Type: Nurse Practitioner Type: HANDP Filed: 07/13/2018 11:43 AM Note Text: HISTORY AND PHYSICAL EXAMINATION Tawanna Reyes 1965 SERVICE DATE: 07/13/2018 SERVICE TIME: 10:51 AM PRIMARY CARE PHYSICIAN: Terra Mendoza MD SURGEON: Surgeon(s) and Role: * Charles Magallon Jr. - Primary ANESTHESIA: General DIAGNOSIS: Stress incontinence, female [N39.3] Stress incontinence, female [N39.3] PROCEDURE: Procedure(s): SUSPENSION DESERA BLADDER SLING (N/A) CYSTOSCOPY (N/A) Subjective CHIEF COMPLAINT: Bladder sling Dr Magallon. HPI: This is a 52 year old female c/o leakage of urine with stress; cough, sneeze, walking fast x about one yr. Positive UTI few weeks ago, finished antibiotic, symptoms resolved. Wears pad daily due to incontinence. Positive history of UPJ bilaterally but states R>L. Last episode of pain 2 mos ago. Symptoms relieved with lying flat x 20 min. PROBLEMS WITH ANESTHESIA: no history of adverse anesthetic event FAMILY PROBLEMS WITH ANESTHESIA: no history of adverse anesthetic event METS: Patient denies any chest pain or undue shortness of breath with the above physical activity. 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 PAST SURGICAL HISTORY Procedure Laterality Date - COLONOSCOP W/ OR W/O [facility] SPEC 01/25/2018 Colonoscopy - DANDC, DIAG AND/OR THERAPEUTIC Dilation AND curettage, x 2 - LAPAROSCOPY, SURGICAL, APPENDECTOMY 09/17/07 - PAST SURGICAL HISTORY OF 1999 Tubal , right salpingectomy FAMILY HISTORY Problem Relation Age of Onset - Cancer Father Bladder Social History Substance Use Topics - Smoking status: Never Smoker - Smokeless tobacco: Never Used - Alcohol use Yes Comment: rarely Prior to Admission medications as of 07/13/18 1135 Medication Sig Last Dose Taking Cranberry 400 mg cap Take by mouth once daily. 07/11/2018 Yes ceFAZolin (ANCEF, KEFZOL) 1 gram injection Inject 2 g intravenously one time only for 1 dose. Cholecalciferol, Vitamin D3, (VITAMIN D) 1,000 unit cap Take 1,000 Units by mouth once daily. 06/22/2018 ibuprofen (ADVIL) 200 mg tablet Take 200 mg by mouth every 6 hours as needed. Multivitamin capsule Take 1 capsule by mouth once daily. 06/22/2018 Iijep-5-DPX-EPA-Fish Oil (FISH OIL) 1,000 mg (120 mg-180 mg) cap Take 2 g by mouth twice daily. 06/22/2018 ALLERGIES Allergen Reactions - Contrast Dye Anaphylaxis COMPLETE REVIEW OF SYSTEMS: GENERAL: No weight loss, malaise or fevers, last antibiotic use 06/28 for UTI, symptoms resolved. RESPIRATORY: Negative for cough, hemoptysis, wheezing, COPD, dyspnea or shortness of breath, no history of CHELSEY< COPD< asthma. CARDIOVASCULAR: Negative for chest pain, leg swelling, hypertension, CHF or palpitations, denies chest pain at rest or exertion. GI: No nausea, vomiting, or diarrhea, no G3ERD : See HPI, LMP 06/30, periods every 6 mos. MUSCULOSKELETAL: Negative for joint pain or swelling, back pain or muscle pain PSYCH: Negative for sleep disturbance, mood disorder and recent psychosocial stressors ENDOCRINE: denies diabetes or thyroid disease NEURO: No history of headaches, syncope, paralysis, seizures or tremors Negative for stroke, seizures or headaches. HEM/ONC: No cancer, blood clots in legs or lungs, bleeding disorder NPO: water this am 0830, no food after midnight last pm Objective PHYSICAL EXAM: MENTAL STATUS: alert, oriented to person, place and time HEENT: Normocephalic/atraum atic LUNGS: Lungs clear to auscultation, Good diaphragmatic excursion CARDIAC: Normal S1 and S2; no rubs, murmurs, or gallops, bradycardia ABDOMEN: Abdomen soft, non-tender, BS normal EXTREMITIES: Extremities normal, no deformities, edema 07/12/18 1443 07/13/18 1111 BP: 119/71 Pulse: (!) 56 Resp: 20 Temp: 36.6 ?C (97.8 ?F) SpO2: 96% Weight: 61.2 kg (135 lb) Height: 157.5 cm (5' 2) Body mass index is 24.69 kg/m?. SIGNATURE: Sarahy Juarez APRN.SUZAN PATIENT NAME: Tawanna Reyes DATE: July 13, 2018 TIME: 10:51 AM PAGER/CONTACT #: Normal [facility] NURSING PROGon 07-13-2018 NURSING PROG HNO ID: [id number] Author: Alisha GarciaRn) ABBIE Casanova Service: (none) Author Type: Registered Nurse Type: Nursing Progress Note Filed: 07/13/2018 4:39 PM Note Text: DR MAGALLON EXAMINED PATIENT, ORDERED RODRIGUEZ INSERTION AND TO BE DISCHARGED HOME WITH RODRIGUEZ. INSTRUCTED PATIENT TO GO TO DR ORTIZ OFFICE AT 8:30 AM ON monday. Normal [facility] NURSING PROG HNO ID: [id number] Author: Alisha GarciaRn) ABBIE Casanova Service: (none) Author Type: Registered Nurse Type: Nursing Progress Note Filed: 07/13/2018 3:44 PM Note Text: DR MAGALLON OUT OF OR-INFORMED OF SWELLING IN GROIN/PUBIC AREA. WILL EXAMINE Normal [facility] OPERATIVE NOon 07-13-2018 OPERATIVE NO HNO ID: [id number] Author: Charles Magallon Jr. Service: (none) Author Type: Physician Type: Operative Report Filed: 07/16/2018 8:09 AM Note Text: [facility] - Operative Report TAWANNA REYES : 1965 AGE: 52. SEX: F PATIENT TYPE: A HOSP SVC: UROL LOCATION: [facility] ATTENDING PHYSICIAN: CHARLES MAGALLON JR CSN NUMBER: [id number] DATE OF SURGERY/PROCEDURE: 07/13/2018 INCISION/PROCEDURE START TIME: 1:00 PM INCISION CLOSE/PROCEDURE END TIME: 1:24 PM PREOPERATIVE DIAGNOSIS: Stress urinary incontinence. POSTOPERATIVE DIAGNOSIS: Stress urinary incontinence. SURGEON: Charles Magallon Jr, MD SHIPS OR BARGES LOADER: No Additional Staff SURGERY/PROCEDURE: Cystoscopy with insertion of Desara mid urethral sling. ANESTHESIA: General. COMPLICATIONS: None. DESCRIPTION OF PROCEDURE: Tawanna Reyes is a 52-year-old female with a history of stress urinary incontinence, now presents for sling insertion. After being explained the risks, benefits, and alternatives of procedure, the patient was correctly identified, taken to the operative suite, placed on the table in a dorsal lithotomy position. After general anesthesia was induced, prepped and draped in normal sterile fashion. Rodriguez catheter was placed in the bladder. 1% lidocaine with epinephrine was used to anesthetize the suburethral area. A 2-cm incision was made in the vaginal mucosa underneath the urethra. Metzenbaum scissors were used to dissect out the periurethral space. Next, 1% lidocaine was used to anesthetize the area just above the pubic symphysis. Stab incisions were made on either side of the pubic symphysis. Trocars were then passed through the space of Retzius and out the vaginal incision. Cystoscopy was then performed, which showed that the left trocar was in good position; however, the right trocar had stabbed the bladder. The bladder was drained. The trocar was removed and then replaced. Upon re-examination with cystoscopy, there was no signs of the trocar within the bladder and there were 2 very small poke incisions within the bladder. Next, the catheter replaced sling was attached to trocars. Trocars were removed. Sling was left in place. It was tensioned appropriately. It was mid urethral and tension-free, resting nicely against the urethra. The incision was then closed with 2-0 Vicryl in a running locking fashion, and the 2 stab incisions were closed with skin glue. The bladder was then filled with 200 mL of normal saline and the catheter was removed. The patient, at this point, was reversed from anesthesia, having tolerated the procedure well and afterwards taken to Postoperative Care Unit for recovery. Charles Magallon Jr, MD MG:[id number] /[id number] [facility] PT EDon 07-13-2018 PT ED HNO ID: [id number] Author: Alisha Xiong) ABBIE Casanova Service: (none) Author Type: Registered Nurse Type: Patient Education Filed: 07/13/2018 11:09 AM Note Text: ONGOING PATIENT EDUCATION TOPIC Reinforced: PAIN SCALE Patient Name: Tawanna Reyes Patient Location: [facility] Readiness To Learn Motivation To Learn: Interested Instruction Provided To: Patient Learning Response Patient/Family Response: Verbalizes understanding of: PAIN SCALE Method of Instruction: Verbal instruction Follow-Up Plan: Complete - No need for follow-up Electronically signed by: Alisha Casanova RN [facility] HOSPon 05-30-2018 HOSP Patient:Shon Reyes MRN: Height:5' 2(1.575 m) Weight:141 lb (63.957 kg) Outpatient Medications as of 07/13/18: ceFAZolin (ANCEF, KEFZOL) 1 gram injection Cholecalciferol, Vitamin D3, (VITAMIN D) 1,000 unit cap Cranberry 400 mg cap ibuprofen (ADVIL) 200 mg tablet Multivitamin capsule Gjych-2-JNC-EPA-Fish Oil (FISH OIL) 1,000 mg (120 mg-180 mg) cap Admission/Clinic Administered Medications as of 07/13/18: ceFAZolin iv piggyback 2 g in D5W (iso-osmotic) 100 mL (ANCEF) fentaNYL 50 mcg/mL 25 mcg injection (SUBLIMAZE) HYDROmorphone 0.5 mg injection (DILAUDID) lactated ringers infusion lactated ringers infusion lactated ringers infusion lidocaine 10 mg/mL (1 %) 1-2 mg injection (XYLOCAINE) lidocaine 10 mg/mL (1 %) 1-2 mg injection (XYLOCAINE) oxyCODONE IR 5 mg tab(s) (ROXICODONE) Problem List: Unspecified disorder of kidney and ureter [N28.9] Hydronephrosis, bilateral [N13.30] Stress incontinence, female [N39.3] Allergies: Contrast Dye Date Verified: 07/13/18 Lab Values No results within the last 30 days for the following basenames: K,HCT Progress Notes ([facility]OL [place]SE [place]/TAIWO): Serena Teran [facility] 06/28/2018 12:31 PM Signed Patient called was seen with PCP today 06/28 for possible UTI culture sent and 5 days of Bactrim given. She is scheduled for Sling on 07/13 do you want a repeat culture done? If so when? Please advise. Thank you. Charlse Magallon Jr, MD 06/28/2018 1:11 PM Signed Needs done after abx stopped Order in [facility] Serena Teran [facility] 06/28/2018 2:07 PM Signed Patient notified will go to [facility] on 07/04. Serena Teran [facility] Progress Notes ([facility]): Cindy Love APRN.ELEVATOR INSPECTOR 06/28/2018 11:44 AM Signed 52 year old female with c/o of urinary symptoms X 1 days. Frequency: Yes. Urgency: Yes. Dysuria: No. Hematuria: No. Urine leakage: Yes -- but supposed to have fixed this in a couple days. Fever/Chills: No. Abdominal Pain: Yes. Back Pain: Always has an achy back. Nausea/vomiting: No. Frequency UTIs: No - gets UTI's about twice yearly. Vaginal symptoms: No -- has menses She has tried increasing fluids. She is supposed to be having a bladder sling in a couple of weeks for leakage. ACTIVE PROBLEM LIST Unspecified Disorder of Kidney and Ureter Hydronephrosis, Bilateral Stress Incontinence, Female Current Outpatient Prescriptions: [START ON 07/13/2018] ceFAZolin (ANCEF, KEFZOL) 1 gram injection Inject 2 g intravenously one time only for 1 dose. Disp: 2 g Rfl: 0 Cholecalciferol, Vitamin D3, (VITAMIN D) 1,000 unit cap Take 1,000 Units by mouth once daily. Disp: Rfl: Cranberry 400 mg cap Take by mouth. Disp: Rfl: Multivitamin capsule Take 1 capsule by mouth once daily. Disp: Rfl: Tyyha-1-AZF-EPA-Fish Oil (FISH OIL) 1,000 mg (120 mg-180 mg) cap Take 2 g by mouth twice daily. Disp: Rfl: No current facility-administere d medications for this visit. General Appearance: Well appearing, alert, in no acute distress, well-hydrated, well nourished.. Skin: Skin color, texture, turgor normal, no suspicious rashes or lesions. Head: Normocephalic, no masses, lesions, tenderness or abnormalities. Eyes: Anicteric sclera. Extraocular movements are intact. Lungs: Lungs clear to auscultation. No wheezing, rhonchi, rales. Heart: RRR without murmur, gallop, or rubs. No ectopy. Abdomen: Abdomen soft, + suprapubic pressure with palpation. No masses, organomegaly. No CVA tenderness. Neurologic: Gait normal. Urine dip: large leuk, + blood, neg nitrite, neg protein ASSESSMENT/PLAN: 1. Acute cystitis without hematuria - ICD9: 595.0, ICD10: N30.00 (primary diagnosis) - SULFAMETHOXAZOLE 800 MG-TRIMETHOPRIM 160 MG TABLET - URINE CULTURE 2. Dysuria - ICD9: 788.1, ICD10: R30.0 acute - UA positive for kalli esterase and hematuria - Send urine for culture - Begin treatment with Bactrim DS BID for 5 days - Patient education for prevention given - UA DIP, URINE (POC) Discussed treatment plan and patient voices understanding. Patient's questions answered appropriately. Medications and potential side effects were discussed and patient voices understanding. Return to the office as scheduled or as needed for worsening/no improvement. Cindy Love APRN.SUZAN Love APRN.CNP 06/28/2018 9:12 AM Signed 1. Start Bactrim twice daily X 5 days. Force fluids with water and juices (not caffeine) to 2000cc per day until symptoms improve. Any mechanical pressure in the area of the urethra (wear urine comes out) may cause bacteria to be pushed up inside the bladder. You should urinate to clear out bacterial contamination before and after sex, after tampon insertion, or after washing the vaginal area. It is important to wipe front to back after voiding. If you develop a fever, chills, unusual back pain, or vomiting, this may mean you have infection in the kidney which can be more serious. If this occurs, or you fail to improve on the antibiotics in 3 days, either call the office to be checked or go to the emergency department. If you should breakout in a rash, stop the medicine and call the office. Any antibiotic has the potential to cause diarrhea due to alteration in the normal bacterial mitchell of the gut. This can be reduced by eating yogurt with active cultures daily while on the medication. If diarrhea becomes severe (watery, large volumes or more than 3-4/day) call the office. While on antibiotics women may experience yeast vaginitis due to alteration in the vaginal mitchell. Symptoms include vaginal itching, irritation, and often a clumpy white discharge. If this occurs, there are several effective over the counter remedies available, including one-dose treatments. If these are unsuccessful, call the office. Antibiotics may interfere with control. If you are on oral contraceptives, use another form of protection (condoms, foams, jellies, diaphragm) throught the end of whatever pill pack you are on when you finish the antibiotic. Normal [facility] CNOVon 05-17-2018 CNOV Office Visit (AKURFL) TAWANNA REYES ([id number]) 1965 F Date Time Provider Department 05/17/18 9:00 AM CHARLES MAGALLON JR During your visit today, we recorded the following information about you: Weight Height 61.2 kg 1.575 m Charles Magallon Jr, MD 05/17/2018 10:41 AM Signed NEW PATIENT HISTORY AND PHYSICAL EXAM PATIENT INFO: Tawanna Reyes 52 year old REFERRING PROVIDER: Data Unavailable PCP: Terra Mendoza MD HPI Tawanna Reyes is a 52 year old female refer for incontinence. Strictly severe mary. Wetting through pad. Unable to do desired activities. No hematuria. Done having children. Review of Systems Constitutional: Negative. Respiratory: Negative. Cardiovascular: Negative. Gastrointestinal: Negative. Genitourinary: Negative. Skin: Negative. Neurological: Negative. Psychiatric/Behavior al: Negative. LAB: Creatinine Date Value Ref Range Status 06/28/2016 0.84 0.58 - 0.96 mg/dL Final No results found for: PSA Glucose, Urine (mg/dL) Date Value 02/14/2018 Neg Bilirubin, Urine (no units) Date Value 02/14/2018 Neg Ketones, Urine (no units) Date Value 02/14/2018 Neg Specific [place], Ur (no units) Date Value 02/14/2018 1.005 Hemoglobin/Blood,Ur (no units) Date Value 02/14/2018 Small pH, Urine (no units) Date Value 02/14/2018 6.5 Protein, Urine (mg/dL) Date Value 02/14/2018 Neg Urobilinogen, Urine (EU) Date Value 02/14/2018 Neg Nitrites (no units) Date Value 02/14/2018 Neg Leukocytes (no units) Date Value 02/14/2018 Mod Color/Appearance (comment:) Date Value 02/14/2018 Lt. Yellow/Cloudy MEDICATIONS: Cranberry 400 mg cap Take by mouth. Multivitamin capsule Take 1 capsule by mouth once daily. Pcobo-3-BFS-EPA-Fish Oil (FISH OIL) 1,000 mg (120 mg-180 mg) cap Take 2 g by mouth twice daily. Cholecalciferol, Vitamin D3, (VITAMIN D) 1,000 unit cap Take 1,000 Units by mouth once daily. HISTORIES PAST MEDICAL HISTORY Diagnosis Date - Snoring - UPJ obstruction, congenital Flares up if she drinks a lot of water FAMILY HISTORY Problem Relation Age of Onset - Cancer Father Bladder SOCIAL HISTORY Social History Substance Use Topics - Smoking status: Never Smoker - Smokeless tobacco: Never Used - Alcohol use Yes Comment: rarely PHYSICAL EXAMINATION Ht 157.5 cm (5' 2) Wt 61.2 kg (135 lb) BMI 24.69 kg/m? General appearance: Well appearing, alert, in no acute distress and well-hydrated, well nourished Skin: Skin color, texture, turgor normal, no suspicious rashes or lesions Respiratory:+ effort Cardiovascular: Not examined GI: Normal abdominal exam, Abdomen soft, non-tender. No masses, organomegaly Musculoskeletal: normal ROM Neuro: No gross neurologic defecits Genitourinary: female nurse present. No prolapse. Severe urethral hypermobility. pvr cath 20cc ASSESSMENT: (N39.3) MARY (stress urinary incontinence, female) (primary encounter diagnosis) PLAN: Cystoscopy, desera mid urethral sling insertion Explained procedure in detail including two suprapubic incisions and one 2cm vaginal incisions. Explained the use of mesh and trocars to pass mesh. Discussed risk of mi, stroke, , pe, dvt, coma, bleeding, infection, failure, dyspareunia, de jerome frequency / urgency, urinary retention, need for catheter, bowel injury, mesh erosion, damage to bladder or urethra, pelvic pain, need for repeat surgery. Patient acknowledges risks and agrees to proceed with surgery. 45 of total time spent in direct patient contact. >50% of the time was spent in counseling and/or coordination of care Charles Magallon Jr, MD Referring Provider: SELF [200] Allergies As of Date: 05/17/2018 Noted Allergy Reaction CONTRAST DYE 05/17/2005 10 - Anaphylaxis Date Reviewed: 05/17/2018 Reviewed by: Charles Magallon Jr. - Fully Assessed Reason for Visit: New Patient [172] Incontinence [338] Primary Visit Diagnosis:MARY (stress urinary incontinence, female) [N39.3] Prescriptions as of 05/17/2018 Sig: CRANBERRY 400 MG CAPSULE Take by mouth. MULTIVITAMIN CAPSULE Take 1 capsule by mouth once * OMEGA 5-NSH-QST-FISH OIL 1,00* Take 2 g by mouth twice daily. CHOLECALCIFEROL (VITAMIN D3) * Take 1,000 Units by mouth onc* Problem List As Of Date 05/17/2018 Noted Resolved RENAL AND URETERAL DIS NOS [N28.9] INVALID FOR* More... APPENDICITIS ACUTE GANGRENOUS [K35.80] INVALID FOR*02/24/2011 Hydronephrosis, bilateral [N13.30] INVALID FOR* Disposition: Return in about 2 months (around 07/17/2018). Follow-up and Disposition History Recorded Encounter Status:Closed by CHARLES MAGALLON MD on 05/17/18 [facility] PROGRESSon 05-17-2018 PROGRESS HNO ID: [id number] Author: Charles Magallon Jr. Service: (none) Author Type: Physician Type: Progress Notes Filed: 05/17/2018 10:41 AM Note Text: NEW PATIENT HISTORY AND PHYSICAL EXAM PATIENT INFO: Tawanna Reyes 52 year old REFERRING PROVIDER: Data Unavailable PCP: Terra Mendoza MD HPI Tawanna Reyse is a 52 year old female refer for incontinence. Strictly severe mary. Wetting through pad. Unable to do desired activities. No hematuria. Done having children. Review of Systems Constitutional: Negative. Respiratory: Negative. Cardiovascular: Negative. Gastrointestinal: Negative. Genitourinary: Negative. Skin: Negative. Neurological: Negative. Psychiatric/Behavior al: Negative. LAB: Creatinine Date Value Ref Range Status 06/28/2016 0.84 0.58 - 0.96 mg/dL Final No results found for: PSA Glucose, Urine (mg/dL) Date Value 02/14/2018 Neg Bilirubin, Urine (no units) Date Value 02/14/2018 Neg Ketones, Urine (no units) Date Value 02/14/2018 Neg Specific [place], Ur (no units) Date Value 02/14/2018 1.005 Hemoglobin/Blood,Ur (no units) Date Value 02/14/2018 Small pH, Urine (no units) Date Value 02/14/2018 6.5 Protein, Urine (mg/dL) Date Value 02/14/2018 Neg Urobilinogen, Urine (EU) Date Value 02/14/2018 Neg Nitrites (no units) Date Value 02/14/2018 Neg Leukocytes (no units) Date Value 02/14/2018 Mod Color/Appearance (comment:) Date Value 02/14/2018 Lt. Yellow/Cloudy MEDICATIONS: Cranberry 400 mg cap Take by mouth. Multivitamin capsule Take 1 capsule by mouth once daily. Lmsrd-8-GDC-EPA-Fish Oil (FISH OIL) 1,000 mg (120 mg-180 mg) cap Take 2 g by mouth twice daily. Cholecalciferol, Vitamin D3, (VITAMIN D) 1,000 unit cap Take 1,000 Units by mouth once daily. HISTORIES PAST MEDICAL HISTORY Diagnosis Date - Snoring - UPJ obstruction, congenital Flares up if she drinks a lot of water FAMILY HISTORY Problem Relation Age of Onset - Cancer Father Bladder SOCIAL HISTORY Social History Substance Use Topics - Smoking status: Never Smoker - Smokeless tobacco: Never Used - Alcohol use Yes Comment: rarely PHYSICAL EXAMINATION Ht 157.5 cm (5' 2) Wt 61.2 kg (135 lb) BMI 24.69 kg/m? General appearance: Well appearing, alert, in no acute distress and well-hydrated, well nourished Skin: Skin color, texture, turgor normal, no suspicious rashes or lesions Respiratory:+ effort Cardiovascular: Not examined GI: Normal abdominal exam, Abdomen soft, non-tender. No masses, organomegaly Musculoskeletal: normal ROM Neuro: No gross neurologic defecits Genitourinary: female nurse present. No prolapse. Severe urethral hypermobility. pvr cath 20cc ASSESSMENT: (N39.3) MRAY (stress urinary incontinence, female) (primary encounter diagnosis) PLAN: Cystoscopy, desera mid urethral sling insertion Explained procedure in detail including two suprapubic incisions and one 2cm vaginal incisions. Explained the use of mesh and trocars to pass mesh. Discussed risk of mi, stroke, , pe, dvt, coma, bleeding, infection, failure, dyspareunia, de jerome frequency / urgency, urinary retention, need for catheter, bowel injury, mesh erosion, damage to bladder or urethra, pelvic pain, need for repeat surgery. Patient acknowledges risks and agrees to proceed with surgery. 45 of total time spent in direct patient contact. >50% of the time was spent in counseling and/or coordination of care Charles Magallon Jr, MD [facility] Surgical Pathology Depar tmenton 03-01-2018 Protein mass conc Name TAWANNA MONTIEL. Pathologist: CAITY VALEate of Procedure: 03/01/2018Date Received: 03/02/2018Date Reported 03/05/2018Submitting Physician: ISRAEL CARREON MDLocation: [facility] Other External # [id number] FINAL DIAGNOSISA. 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 Electronically Signed Out By MIRACLE PEREZ MD/SXRBy the signature on this report, the individual or group listed as making theFinal Interpretation/Diagn osis certifies that they have reviewed this case. Clinical History:Abnormal Pap; R87.610Specimens Submitted As:A: ECC Other Case Numbers [id number] Description:Received in formalin, labeled with the patient's name and hospital number [facility], are multiple fragments of mucus, aggregating to 1.5 x 1.0 x 0.1 cm. Thespecimen is submitted in toto in one cassette. The specimen may not surviveprocessing.EX Lexl/03/02/2018 Normal [facility] Comment on above: Performed By: #### [facility] ####[facility] Surgical Pathology [id number] [facility] [id number] Vital Signs Date Time Vital Sign Value Performing Clinician Tigre tam 04-25-2025 08:37-0400 Body height 157.[address] Terra Mendoza MD Work Phone: [facility] 04-25-2025 08:37-0400 Body mass index (BMI) [Ratio] 23.8 kg/m2 Dr. Terra Mendoza MD Work Phone: [facility] 04-25-2025 08:37-0400 Body weight 58.[address] Terra Mendoza MD Work Phone: [facility] 04-25-2025 08:37-0400 Diastolic blood pressure 69 mm[Hg] Dr. Terra Mendoza MD Work Phone: [facility] 04-25-2025 08:37-0400 Heart rate 61 /min Dr. Terra Mendoza MD Work Phone: [facility] 04-25-2025 08:37-0400 Systolic blood pressure 94 mm[Hg] Dr. Terra Mendoza MD Work Phone: [facility] 02-06-2025 10:06-0400 Body height 158 cm Dacia Cardenas CLARIFIER.ELEVATOR INSPECTOR Work Phone: [facility] 02-06-2025 10:06-0400 Body mass index (BMI) [Ratio] 24.78 kg/m2 Dacia Suppan CLARIFIER.ELEVATOR INSPECTOR Work Phone: [facility] 02-06-2025 10:06-0400 Body weight 61.87 kg Dacia Suppan CLARIFIER.ELEVATOR INSPECTOR Work Phone: [facility] 02-06-2025 10:06-0400 Diastolic blood pressure 64 mm[Hg] Dacia Suppan CLARIFIER.ELEVATOR INSPECTOR Work Phone: [facility] 02-06-2025 10:06-0400 Heart rate 57 /min Dacia Suppan CLARIFIER.ELEVATOR INSPECTOR Work Phone: [facility] 02-06-2025 10:06-0400 Respiratory rate 12 /min Dacia Suppan CLARIFIER.ELEVATOR INSPECTOR Work Phone: [facility] 02-06-2025 10:06-0400 SaO2% (BldA) [Mass fraction] 97 % Dacia Suppan CLARIFIER.ELEVATOR INSPECTOR Work Phone: [facility] 02-06-2025 10:06-0400 Systolic blood pressure 102 mm[Hg] Dacia Suppan CLARIFIER.ELEVATOR INSPECTOR Work Phone: [facility] 07-01-2024 14:15-0500 Body height 155.6 cm Cande Gorman MD Work Phone: [facility] 07-01-2024 14:15-0500 Body mass index (BMI) [Ratio] 26.05 kg/m2 Cande Gorman MD Work Phone: [facility] 07-01-2024 14:15-0500 Body weight 63.05 kg Cande Gorman MD Work Phone: [facility] 02-06-2024 09:36-0400 Body mass index (BMI) [Ratio] 24.6 kg/m2 Dacia Suppan CLARIFIER.ELEVATOR INSPECTOR Work Phone: [facility] 02-06-2024 09:36-0400 Body weight 59.88 kg Dacia Suppan CLARIFIER.ELEVATOR INSPECTOR Work Phone: [facility] 02-06-2024 09:36-0400 Diastolic blood pressure 70 mm[Hg] Dacia Suppan CLARIFIER.ELEVATOR INSPECTOR Work Phone: [facility] 02-06-2024 09:36-0400 Heart rate 67 /min Dacia Suppan CLARIFIER.ELEVATOR INSPECTOR Work Phone: [facility] 02-06-2024 09:36-0400 Respiratory rate 16 /min Dacia Suppan CLARIFIER.ELEVATOR INSPECTOR Work Phone: [facility] 02-06-2024 09:36-0400 SaO2% (BldA) [Mass fraction] 96 % Dacia Suppan CLARIFIER.ELEVATOR INSPECTOR Work Phone: [facility] 02-06-2024 09:36-0400 Systolic blood pressure 122 mm[Hg] Dacia Suppan CLARIFIER.ELEVATOR INSPECTOR Work Phone: [facility] 01-22-2024 15:01-0400 Body mass index (BMI) [Ratio] 24.6 kg/m2 Dacia Suppan CLARIFIER.CASINO CHANGE ATTENDANT Work Phone: [facility] 01-22-2024 15:01-0400 Body weight 59.88 kg Dacia Suppan CLARIFIER.CASINO CHANGE ATTENDANT Work Phone: [facility] 01-22-2024 15:01-0400 Diastolic blood pressure 68 mm[Hg] Dacia Suppan CLARIFIER.CASINO CHANGE ATTENDANT Work Phone: [facility] 01-22-2024 15:01-0400 Heart rate 73 /min Dacia Suppan CLARIFIER.CASINO CHANGE ATTENDANT Work Phone: [facility] 01-22-2024 15:01-0400 Respiratory rate 16 /min Dacia Suppan CLARIFIER.CASINO CHANGE ATTENDANT Work Phone: [facility] 01-22-2024 15:01-0400 SaO2% (BldA) [Mass fraction] 97 % Dacia Suppan CLARIFIER.CASINO CHANGE ATTENDANT Work Phone: [facility] 01-22-2024 15:01-0400 Systolic blood pressure 118 mm[Hg] Dacia Suppan CLARIFIER.CASINO CHANGE ATTENDANT Work Phone: [facility] 01-05-2023 09:17-0400 Body height 156 cm Iliana Church CLARIFIER.ELEVATOR INSPECTOR Work Phone: [facility] 01-05-2023 09:17-0400 Body weight 63.05 kg Iliana Church CLARIFIER.ELEVATOR INSPECTOR Work Phone: [facility] 01-05-2023 09:17-0400 Diastolic blood pressure 68 mm[Hg] Iliana Del Castillohof CLARIFIER.ELEVATOR INSPECTOR Work Phone: [facility] 01-05-2023 09:17-0400 Heart rate 67 /min Iliana Magdalenehof CLARIFIER.ELEVATOR INSPECTOR Work Phone: [facility] 01-05-2023 09:17-0400 Respiratory rate 16 /min Iliana Magdalenehof CLARIFIER.ELEVATOR INSPECTOR Work Phone: [facility] 01-05-2023 09:17-0400 SaO2% (BldA) [Mass fraction] 97 % Iliana Magdalenehof CLARIFIER.ELEVATOR INSPECTOR Work Phone: [facility] 01-05-2023 09:17-0400 Systolic blood pressure 112 mm[Hg] Iliana Del Castillohof CLARIFIER.ELEVATOR INSPECTOR Work Phone: [facility] 12-21-2022 08:52-0400 Body height 157.5 cm Cande Gorman MD Work Phone: [facility] 12-21-2022 08:52-0400 Body weight 62.14 kg Cande Gorman MD Work Phone: [facility] 12-21-2022 08:52-0400 Diastolic blood pressure 64 mm[Hg] Cande Gorman MD Work Phone: [facility] 12-21-2022 08:52-0400 Systolic blood pressure 110 mm[Hg] Cande Gorman MD Work Phone: [facility] 12-21-2021 13:42-0400 Body height 157.5 cm Cande Gorman MD Work Phone: [facility] 12-21-2021 13:42-0400 Body weight 65.77 kg Cande Gorman MD Work Phone: [facility] 12-21-2021 13:42-0400 Diastolic blood pressure 62 mm[Hg] Cande Gorman MD Work Phone: [facility] 12-21-2021 13:42-0400 Systolic blood pressure 104 mm[Hg] Cande Gorman MD Work Phone: [facility] Encounters Encounter Date Encounter Type Care Provider Facility Start: 04-28-2025 End: 04-28-2025 ambulatory DACIA Asa SUPPPATRIA Facility:[facility] Start: 04-25-2025 End: 04-25-[address] Mel Telles MD -[facility] Work Phone: Start: 04-25-2025 End: 04-25-2025 ambulatory Terra Mendoza Facility:[facility] Start: 02-07-2025 End: 02-07-2025 Follow-up encounter Daciagigi Cardenas CLARIFIER.ELEVATOR INSPECTOR Work Phone: [facility] Start: 02-06-2025 End: 02-06-2025 Patient encounter procedure Dacia Cardenas CLARIFIER.ELEVATOR INSPECTOR Work Phone: [facility] Comment on above: Screening breast exa mination (Primary Dx); Encounter for screening examination for other mental health and behavioral disorders; Screening for depression; Screening for lipid disorders; Wellness examination Start: 02-06-2025 End: 02-06-2025 Patient encounter status Dacia Cardenas CLARIFIER.ELEVATOR INSPECTOR Work Phone: [facility] Start: 02-06-2025 End: 02-06-2025 ambulatory DACIA Asa SUPPPATRIA Facility:[facility] Start: 02-06-2025 Encounter for genera l adult medical examination without abnormal findings DACIA Asa JAMEYAN [facility] Start: 01-14-2025 Non-patient / Non-visit Dr. Mel loya MD -[facility] Work Phone: Start: 07-02-2024 End: 07-02-2024 Telephone encounter Terra Mendoza MD Work Phone: [facility] [place] Comment on above: Results (Mammogram [facility] one at [facility]) Start: 07-01-2024 End: 07-01-2024 ambulatory CANDE GORMAN Facility:[facility] Start: 07-01-2024 End: 07-01-2024 Patient encounter procedure Cande Gorman MD Work Phone: OB/Gynecology Comment on above: Encounter for gyneco logical examination (general) (routine) without abnormal findings (Primary Dx); Encounter for screening for human papillomavirus (HPV); Pap smear for cervical cancer screening; Loss of height; Encounter for screening for osteoporosis; Asymptomatic postmenopausal status Start: 07-01-2024 End: 07-01-2024 Patient encounter status Cande Gorman MD Work Phone: [facility] Start: 07-01-2024 End: 07-01-2024 ambulatory [facility] Facility:[facility] Start: 02-07-2024 ambulatory Terra berry MD Work Phone: [facility] Start: 02-06-2024 End: 02-06-2024 Office outpatient visit 15 minutes Dacia Cardenas CLARIFIER.ELEVATOR INSPECTOR Work Phone: [facility] Comment on above: Hyperlipidemia, mixe d (Primary Dx); JUD (generalized anxiety disorder) Start: 01-22-2024 End: 01-22-2024 Office outpatient visit 25 minutes Dacia Cardenas CLARIFIER.CASINO CHANGE ATTENDANT Work Phone: [facility] Comment on above: Wellness examination (Primary Dx); JUD (generalized anxiety disorder) Start: 01-22-2024 End: 01-22-2024 Patient encounter status Dacia Cardenas CLARIFIER.CASINO CHANGE ATTENDANT Work Phone: [facility] Work Phone: Start: 01-06-2023 Telephone encounter Iliana huang CLARIFIER.ELEVATOR INSPECTOR Work Phone: [facility] Comment on above: Results (Labs) Start: 01-05-2023 End: 01-05-2023 Patient encounter procedure Iliana Church APRN.ELEVATOR INSPECTOR Work Phone: [facility] Comment on above: Wellness examination (Primary Dx); Bilateral impacted cerumen; Screening cholesterol level; Screening for diabetes mellitus; Encounter for immunization Start: 01-05-2023 End: 01-05-2023 Patient encounter status Iliana Church APRN.ELEVATOR INSPECTOR Work Phone: [facility] Start: 12-30-2022 End: 12-30-2022 ambulatory [facility] Work Phone: Start: 12-30-2022 End: 12-30-2022 Patient encounter procedure [facility] Start: 12-21-2022 End: 12-21-2022 Patient encounter procedure Cande Gorman MD Work Phone: OB/Gynecology Comment on above: Encounter for gyneco logical examination (general) (routine) without abnormal findings (Primary Dx); Encounter for screening mammogram for malignant neoplasm of breast Start: 12-21-2022 End: 12-21-2022 Patient encounter status Cande Gorman MD Work Phone: OB/Gynecology Start: 12-21-2021 End: 12-21-2021 Patient encounter procedure Cande Gorman MD Work Phone: OB/Gynecology Comment on above: Encounter for gyneco logical examination (general) (routine) without abnormal findings; Encounter for screening mammogram for breast cancer Start: 12-21-2021 End: 12-21-2021 Patient encounter status Cande Gorman MD Work Phone: OB/Gynecology Start: 12-21-2021 End: 12-21-2021 Patient encounter procedure [facility] Start: 11-24-2021 ambulatory Terra berry MD Work Phone: [facility] Start: 10-13-2021 Telephone encounter Cande Gorman MD Work Phone: OB/Gynecology Comment on above: Patient Question Start: 09-27-2018 End: 09-27-2018 Patient encounter procedure SARAHY ALLEN Facility:[facility] Start: 08-01-2018 Patient encounter procedure CHARLES MAGALLON Facility:[facility] Start: 07-27-2018 End: 07-27-2018 Evaluation and management of inpatient CHARLES MAGALLON Facility:[facility] Start: 07-25-2018 End: 07-25-2018 Patient encounter procedure CHARLES MAGALLON Facility:[facility] Start: 07-25-2018 End: 07-26-2018 Patient encounter procedure Terra Mendoza Facility:[facility] Start: 07-25-2018 End: 07-25-2018 Patient encounter procedure Terra Mendoza Facility:[facility] Start: 07-19-2018 End: 07-20-2018 Patient encounter procedure CHARLES MAGALLON Facility:[facility] Start: 07-19-2018 End: 07-19-2018 Patient encounter procedure CHARLES MAGALLON Facility:[facility] Start: 07-19-2018 End: 07-20-2018 Patient encounter procedure Terra Keshawn Reji Facility:[facility] Start: 07-16-2018 End: 07-16-2018 Emergency department patient visit SANGEETHA TREVINOEDUIN Facility:[facility] Start: 07-16-2018 End: 07-16-2018 Patient encounter procedure SARAHY CANDI Facility:[facility] Start: 07-13-2018 End: 07-13-2018 Evaluation and management of inpatient CHARLES MAGALLON Facility:[facility] Start: 07-13-2018 Patient encounter procedure CHARLES MAGALLON Facility:[facility] Start: 05-17-2018 End: 05-17-2018 Patient encounter procedure CHARLES MAGALLON Facility:[facility] Start: 03-01-2018 End: 03-02-2018 Patient encounter [facility] Start: 03-01-2018 Patient encounter Israel Lin Miguel woods Facility:[facility] Procedures Date Procedure Procedure Detail Performing Clinician Start: 02-06-2025 Adult depression scr eening assessment Dacia Suppan CLARIFIER.ELEVATOR INSPECTOR Work Phone: Start: 02-06-2025 Lipid 1996 panel - S hanny or Plasma Dacia Suppan CLARIFIER.ELEVATOR INSPECTOR Work Phone: Start: 01-22-2024 Adult depression scr eening assessment Terra Mendoza MD Work Phone: Start: 01-22-2024 Lipid 1996 panel - S hanny or Plasma Dacia Suppan CLARIFIER.ELEVATOR INSPECTOR Work Phone: Start: 01-05-2023 Lipid 1996 panel - S hanny or Plasma Dacia Suppan CLARIFIER.CASINO CHANGE ATTENDANT Work Phone: Start: 12-30-2022 End: 12-30-2022 Screening mammography Start: 12-21-2021 End: 12-21-2021 Mammography Cande Gorman MD Work Phone: Start: 10-19-2020 Mammography Cande ramos MD Work Phone: Start: 06-20-2018 Adult depression scr eening assessment Cande Gorman MD Work Phone: Start: 01-25-2018 Colonoscopy Cande ramos MD Work Phone: Plan of Treatment Date Care Activity Detail Author Start: 2039 RSV Vaccine (1 - 1-d ose 75+ series) RSV Vaccine (1 - 1-dose 75+ series) [facility] Start: 01-05-2033 Urine microalbumin profile [facility] Start: 02-06-2030 Lipid panel Lipid Screening [facility] Start: 07-01-2029 Screening for malign ant neoplasm of cervix Cervical Cancer Screening [facility] Start: 01-21-2029 Lipid panel Lipid Screening [facility] Start: 02-07-2028 Diabetes Screening Diabetes Screenin g [facility] Start: 01-26-2028 Colonoscopy COLONOSCOPY [facility] Start: 01-26-2028 COLORECTAL CANCER SCREENING COLORECTAL CANCER SCREENING [facility] Start: 01-26-2028 Screening for malign ant neoplasm of colon [facility] Start: 01-06-2028 Lipid panel Lipid Screening [facility] Start: 01-06-2028 LIPID SCREEN LIPID SCREEN [facility] Start: 01-21-2027 Diabetes Screening Diabetes Screenin g [facility] Start: 02-17-2026 End: 02-17-2026 Patient encounter procedure 02/17/2026 12:40 PM EDT Office Visit [facility] [address] [place], [place] [id number] Dacia Cardenas, CLARIFIER.ELEVATOR INSPECTOR [address] [place], [place] [address] yearly [facility] Comment on above: yearly Start: 02-06-2026 Anxiety Screening Anxiety Screening [facility] Start: 02-06-2026 Depression Screening Depression Scre ening [facility] Start: 02-06-2026 Pneumococcal Vaccine : 50+ (1 of 1 - PCV) Pneumococcal Vaccine: 50+ (1 of 1 - PCV) [facility] Comment on above: Postponed from 08/23 (Declined at this time) Start: 01-05-2026 [facility]ABET[facility]CRE[facility] Start: 01-05-2026 Diabetes Screening Diabetes Screenin g [facility] Start: 07-01-2025 Covid-19 Vaccine ( season) Covid-19 Vaccine () [facility] Comment on above: Postponed from 03/17 (Declined at this time) Start: 07-01-2025 Screening for malign ant neoplasm of breast Mammogram Screening [facility] Start: 07-01-2025 End: 07-01-2025 Patient encounter procedure 07/01/2025 9:00 AM EST Office Visit OB/Gynecology [address] [place] [address] Cande Gorman MD [address] [place], [place] [id number] Annual [facility]/Gynecology Comment on above: Annual Start: 05-10-2025 End: 08-09-2025 LIPID PANEL, NONFASTING LIPID PANEL, NONFASTING Lab Routine Hyperlipidemia, mixed Expected: 05/10/2025, Expires: 08/09/2025 [facility] Work Phone: Comment on above: Expected: 05/10/2025 , Expires: 08/09/2025 Start: 03-17-2025 Influenza vaccination Influenza Vacc ine (#1) [facility] Start: 02-06-2025 End: 05-08-2025 Comprehensive metabolic 2000 panel - Serum or Plasma [facility] Work Phone: Comment on above: Expected: 02/06/2025 , Expires: 05/08/2025 Start: 02-06-2025 End: 05-08-2025 LIPID PANEL, NONFASTING [facility] Comment on above: Expected: 02/06/2025 , Expires: 05/08/2025 Start: 02-06-2025 End: 02-06-2025 Patient encounter procedure 02/06/2025 10:00 AM EDT Office Visit [facility] [address] [place], [place] [id number] Dacia Cardenas APRN.ELEVATOR INSPECTOR [address] [facility] [place] [address] Physical [facility] Comment on above: Physical Start: 01-21-2025 Anxiety Screening Anxiety Screening [facility] Start: 01-21-2025 Depression Screening Depression Scre ening [facility] Start: 01-13-2025 Influenza vaccination Influenza Vacc ine (#1) [facility] Comment on above: Postponed from 03/17 (Declined at this time) Start: 10-06-2024 HPV TESTING HPV TESTING [facility] Start: 10-06-2024 PAP TESTING PAP TESTING [facility] Start: 10-06-2024 Screening for malign ant neoplasm of cervix Cervical Cancer Screening [facility] Start: 07-25-2024 End: 07-25-2024 Patient encounter procedure 07/25/2024 3:25 PM EST Appointment Radiology [address] [place] [phone] Loss of height [R29.890]; Encounter for screening for osteoporosis [Z13.820]; Asymptomatic postmenopausal status [Z78.0] Radiology Comment on above: Loss of height [R29. 890]; Encounter for screening for osteoporosis [Z13.820]; Asymptomatic postmenopausal status [Z78.0] Start: 07-01-2024 End: 07-01-2024 Patient encounter procedure 07/01/2024 2:20 PM EST Office Visit OB/Gynecology [address] [place], [place] [phone] Cande Gorman MD [address] [place] [address] Annual OB/Gynecology Comment on above: Annual Start: 03-17-2024 Influenza vaccination Influenza Vacc ine (#1) [facility] Start: 02-15-2024 Covid-19 Vaccine ( season) Covid-19 Vaccine ( season) [facility] Comment on above: Postponed from 03/17 (Postponed To Appropriate Date) Start: 02-06-2024 End: 02-06-2024 Patient encounter procedure 02/06/2024 10:00 AM EDT Office Visit [facility] [address] [place] [address] Dacia Cardenas APRN.CASINO CHANGE ATTENDANT [address] [place] [address] 2 week JUD f/u [facility] Comment on above: 2 week JUD f/u Start: 01-22-2024 End: 04-22-2024 CBC W Auto Differential panel - Blood [facility] Comment on above: Expected: 01/22/2024 , Expires: 04/22/2024 Start: 01-22-2024 End: 04-22-2024 Cobalamin (Vitamin B12) [Mass/volume] in Serum or Plasma [facility] Comment on above: Expected: 01/22/2024 , Expires: 04/22/2024 Start: 01-22-2024 End: 04-22-2024 Comprehensive metabolic 2000 panel - Serum or Plasma [facility] Comment on above: Expected: 01/22/2024 , Expires: 04/22/2024 Start: 01-22-2024 End: 04-22-2024 Helicobacter pylori IgG Ab [Presence] in Serum or Plasma by Immunoassay [facility] Work Phone: Comment on above: Expected: 01/22/2024 , Expires: 04/22/2024 Start: 01-22-2024 End: 04-22-2024 Hemoglobin A1c in Blood [facility] Comment on above: Expected: 01/22/2024 , Expires: 04/22/2024 Start: 01-22-2024 End: 04-22-2024 LIPID PANEL, NONFASTING [facility] Comment on above: Expected: 01/22/2024 , Expires: 04/22/2024 Start: 01-22-2024 End: 04-22-2024 Magnesium [Mass/volume] in Serum or Plasma [facility] Comment on above: Expected: 01/22/2024 , Expires: 04/22/2024 Start: 01-22-2024 End: 04-22-2024 Thyrotropin [Units/volume] in Serum or Plasma [facility] Comment on above: Expected: 01/22/2024 , Expires: 04/22/2024 Start: 01-22-2024 End: 04-22-2024 Thyroxine (T4) free [Mass/volume] in Serum or Plasma [facility] Comment on above: Expected: 01/22/2024 , Expires: 04/22/2024 Start: 01-06-2024 COVID-19 VACCINE (3 - Booster for Pfizer series) COVID-19 VACCINE (3 - Booster for Pfizer series) [facility] Comment on above: Postponed from 11/06 (Declined at this time) Start: 01-06-2024 HEPATITIS B (1 of 3 - 3-dose series) HEPATITIS B (1 of 3 - 3-dose series) [facility] Comment on above: Postponed from 08/23 (Declined at this time) Start: 01-06-2024 HIV SCREENING HIV SCREENING [facility] Comment on above: Postponed from 08/23 (Declined at this time) Start: 12-31-2023 Mammography MAMMOGRAM [facility] Start: 12-31-2023 Screening for malign ant neoplasm of breast Mammogram Screening [facility] Start: 03-17-2023 Influenza vaccination INFLUENZA (Sea son Ended) [facility] Start: 01-05-2023 End: 03-07-2023 Comprehensive metabolic 2000 panel - Serum or Plasma [facility] Work Phone: Comment on above: Expected: 01/05/2023 , Expires: 03/07/2023 Start: 01-05-2023 End: 03-07-2023 Hemoglobin A1c in Blood [facility] Work Phone: Comment on above: Expected: 01/05/2023 , Expires: 03/07/2023 Start: 01-05-2023 End: 03-07-2023 Lipid 1996 panel - Serum or Plasma [facility] Work Phone: Comment on above: Expected: 01/05/2023 , Expires: 03/07/2023 Start: 12-21-2022 Mammography MAMMOGRAM [facility] Start: 07-17-2022 DEPRESSION ASSESSMENT DEPRESSION ASS ESSMENT [facility] Start: 03-17-2022 Influenza vaccination INFLUENZA (Sea son Ended) [facility] Start: 10-19-2021 Mammography MAMMOGRAM [facility] Start: 02-08-2021 COVID-19 VACCINE (3 - Booster for Pfizer series) COVID-19 VACCINE (3 - Booster for Pfizer series) [facility] Start: 11-06-2020 COVID-19 VACCINE (3 - Booster for Pfizer series) COVID-19 VACCINE (3 - Booster for Pfizer series) [facility] Start: 06-25-2020 LIPID SCREEN LIPID SCREEN [facility] Start: 06-28-2019 DIABETES SCREEN DIABETES SCREEN [facility] Start: 06-20-2019 Adult depression screening assessment DEPRESSION SCREENING [facility] Start: 2014 Pneumococcal Vaccine : 50+ (1 of 1 - PCV) Pneumococcal Vaccine: 50+ (1 of 1 - PCV) [facility] Start: 2009 COLOGUARD (FIT-DNA) COLOGUARD (FIT-D NA) [facility] Start: [address] COLONOGRAPHY [facility] Start: 2009 FECAL OCCULT BLOOD FECAL OCCULT BLOO D [facility] Start: 2009 Screening for malign ant neoplasm of colon [facility] Start: 2009 SIGMOIDOSCOPY SIGMOIDOSCOPY [facility] Start: 1983 Urine microalbumin profile DTAP,TDAP,TD (1 - Tdap) [facility] Start: 1982 HIV SCREENING HIV SCREENING [facility] Start: 1982 HIV screening HIV Screening [facility] Start: 1964 HEPATITIS B (1 of 3 - 3-dose series) HEPATITIS B (1 of 3 - 3-dose series) [facility] End: 03-08-2025 DBT Breast - bilateral screening MITA SCREENING [facility] Radiology Routine Encounter for screening mammogram for breast cancer 1 Occurrences starting 02/07/2024 until 03/08/2025 [facility] Work Phone: Comment on above: 1 Occurrences starti ng 02/07/2024 until 03/08/2025 End: 07-31-2025 DXA Skeletal system.axial Views for bone density DXA-AXIAL SKELETON Radiology Routine Loss of height Encounter for screening for osteoporosis Asymptomatic postmenopausal status 1 Occurrences starting 07/01/2024 until 07/31/2025 [facility] Work Phone: Comment on above: 1 Occurrences starti ng 07/01/2024 until 07/31/2025 End: 12-24-2022 MITA SCREENING W [facility] MITA SCREENING [facility] Radiology Routine Encounter for screening mammogram for breast cancer 1 Occurrences starting 11/24/2021 until 12/24/2022 [facility] Work Phone: Comment on above: 1 Occurrences starti ng 11/24/2021 until 12/24/2022 End: 01-20-2024 MITA SCREENING W [facility] MITA SCREENING [facility] Radiology Routine Encounter for screening mammogram for malignant neoplasm of breast 1 Occurrences starting 12/21/2022 until 01/20/2024 [facility] Work Phone: Comment on above: 1 Occurrences starti ng 12/21/2022 until 01/20/2024 PAP TEST PAP TEST Lab [facility] Encounter for screening for human papillomavirus (HPV) Pap smear for cervical cancer screening 07/01/2024 2:48 PM [facility] Immunizations Immunization Date Immunization Notes Care Provider [facility] 01-05-2023 tetanus toxoid, reduced diphtheria toxoid, and acellular pertussis vaccine, adsorbed Iliana Church CLARIFIER.ELEVATOR INSPECTOR Work Phone: [facility] 07-12-2021 zoster vaccine recombinant Cande Gorman MD Work Phone: [facility] Work Phone: 04-08-2021 zoster vaccine recombinant Cande Gorman MD Work Phone: [facility] 05-14-2020 influenza, injectabl e, quadrivalent, contains preservative Cande Gorman MD Work Phone: [facility] Work Phone: 05-14-2020 influenza virus vaccine, unspecified formulation Dacia Cardenas CLARIFIER.CASINO CHANGE ATTENDANT Work Phone: [facility] 05-15-2018 influenza, seasonal, injectable Cande Gorman MD Work Phone: [facility] 05-04-2018 influenza, injectabl e, quadrivalent, contains preservative Cande Gorman MD Work Phone: [facility] Work Phone: 04-16-2015 influenza, seasonal, injectable Cande Gorman MD Work Phone: [facility] Payers Date Payer Category Payer Self-pay [id number] 2018 Private Health Insurance MMO SU[employer] PPO [id number] 2018 Unknown MMO MMO [employer]US [id number] 2018-Present [phone] [address] [place], [place] [address] PPO [id number] 2018 Unknown MMO MMO [employer] PPO [id number] 2018-Present [phone] [address] [place] [id number] PPO [id number] 1964 Unknown [id number]. 627 1964 Unknown [id number]. 278 1964 Unknown [id number]. 278 1964 Unknown [id number]. 278 1964 Unknown [id number]. 278 1964 Unknown [id number]. 278 1964 Unknown [id number] [id number]. 278 1964 Unknown [id number]. 278 1964 Unknown [id number]. 278 1964 Unknown [id number]. 278 1964 Unknown [id number]. 278 1964 Unknown [id number] 1965 Unknown [id number] 1965 Unknown [id number] 1960 Unknown [id number] Unknown [id number] Unknown [id number] Social History Date Type Detail Facility Start: 12-21-2022 End: 04-18-2025 Tobacco smoking status WVIS Never smoked tobacco [facility] Start: 04-08-2021 End: 07-01-2024 Alcohol intake Current drinker of alcohol (finding) [facility] Start: 07-19-2011 History SDOH Alcohol Comment rarely [facility] Start: 1965 Sex Assigned At Not on file C [facility] Start: 10-03-2021 End: 12-21-2021 Exposure to SARS-CoV-2 (event) Not sure [facility] Start: 06-13-2016 Tobacco smoking stat us WVIS Unknown if ever smoked [facility] Start: 1965 Sex Assigned At Female [facility] Start: 12-21-2022 Tobacco use and exposure Smokeless tobacco non-user [facility] Start: 12-21-2022 End: 01-22-2024 History of Social function [facility] Start: 12-21-2022 End: 01-22-2024 Tobacco use panel [facility] Adult Depression Screening Assessment 1 [facility] Medical Equipment Procedure Code Equipment Code Equipment Origin al Text Equipment Identifier Dates Sling Desara 4.5x1.1cm Pubourethral Mesh Female - [id number] Start: 07-13-2018 Comment on above: Description: VAGINA Functional Status Date Assessment Result Facility 06-26-2014 Are you deaf, or do you have serious difficulty hearing No 06/26/2014 3:22 PM Misa Rodríguez MA No [facility] 06-26-2014 Are you blind, or do you have serious difficulty seeing, even when wearing glasses No 06/26/2014 3:22 PM Misa Rodríguez MA No [facility] 06-26-2014 Do you have serious difficulty walking or climbing stairs No 06/26/2014 3:22 PM Misa Rodríguez MA No [facility] 06-26-2014 Do you have difficul ty dressing or bathing No 06/26/2014 3:22 PM Misa Rodríguez MA No [facility] 06-26-2014 Because of a physica l, mental, or emotional condition, do you have difficulty doing errands alone such as visiting a physician's office or shopping No 06/26/2014 3:22 PM Misa Rodríguez MA No [facility] Mental Status Date Assessment Result Facility 06-26-2014 Because of a physica l, mental, or emotional condition, do you have serious difficulty concentrating, remembering, or making decisions No 06/26/2014 3:22 PM Misa Rodríguez MA No [facility] Clinical Notes 09-27-2018 to 04-25-2025 Telephone Encounter - Yenni Jenkins MA - 02/07/2025 11:40 AM EDTTelephone Encounter - Yenni Jenkins MA - 02/07/2025 11:40 AM EDTTelephone Encounter - Yenni Jenkins MA - 02/07/2025 11:37 AM EDT Note Date & Type Note Facility 04-25-2025 Progress note [facility] 02-07-2025 Telephone encounter Note Patient was made aware of the results. Patient verbalizes understanding. Yenni Jenkins Ma [facility] 02-07-2025 Miscellaneous Notes Patient was made aware of the results. Patient verbalizes understanding. Yenni Jenkins Ma ----- Message from Dacia Cardenas sent at 02/07/2025 7:57 AM EDT ----- Kidney function, liver function, and blood counts are all normal. LDL, bad cholesterol, is very high. Watch the saturated fats in your diet by eliminating fried foods and choosing only lean meat/skim dairy products. If LDL cholesterol does not improve, we may need to consider a statin medication. Please recheck lipids in 3 months. This did not occur because we hernando labs nonfasting, that affects only the triglycerides. Kidney function, liver function, and blood counts are all normal. LDL, bad cholesterol, is very high. Watch the saturated fats in your diet by eliminating fried foods and choosing only lean meat/skim dairy products. If LDL cholesterol does not improve, we may need to consider a statin medication. Please recheck lipids in 3 months. This did not occur because we hernando labs nonfasting, that affects only the triglycerides. documented in this encounter [facility] 02-07-2025 Telephone encounter Note ----- Message from Dacia Cardenas sent at 02/07/2025 7:57 AM EDT ----- Kidney function, liver function, and blood counts are all normal. LDL, bad cholesterol, is very high. Watch the saturated fats in your diet by eliminating fried foods and choosing only lean meat/skim dairy products. If LDL cholesterol does not improve, we may need to consider a statin medication. Please recheck lipids in 3 months. This did not occur because we hernando labs nonfasting, that affects only the triglycerides. [facility] 02-07-2025 Progress note Formatting of t his note might be different from the original. Kidney function, liver function, and blood counts are all normal. LDL, bad cholesterol, is very high. Watch the saturated fats in your diet by eliminating fried foods and choosing only lean meat/skim dairy products. If LDL cholesterol does not improve, we may need to consider a statin medication. Please recheck lipids in 3 months. This did not occur because we hernando labs nonfasting, that affects only the triglycerides. [facility] 02-06-2025 Instructions Dacia Cardenas APRN.CNP - 02/06/2025 10:30 AM EDT - Get blood tests for a complete blood count, kidney function, and cholesterol as ordered. - Follow up in 12 m documented in this encounter [facility] 02-06-2025 Note HNO ID: [id number] Author: DACIA CARDENAS APRN.CNP Service: ? Author Type: Nurse Practitioner Type: Progress Notes Filed: 02/06/2025 10:31 Note Text: Chief Reason For Appointment Patient presents with: Physical Tawanna Reyes is a 59 year old female who presents for annual exam. Last office visit date: 02/06/2024 Accompanied By self only Have you had any critical events, hospital stays, ER visits, surgeries or procedures since your last visit here in our office: No Specialists/Other Healthcare Providers Seen: Patient Care Team: Terra Mendoza MD as PCP - Maurilio Collazo APRN.CNP as Book Jacket Cover Machine Operator (Family Medicine) Concerns today: None HPI Wellness visit Tawanna Reyes is a 59-year-old female presenting for an annual wellness visit, with additional concerns about low heart rate and elevated magnesium levels. Annual Wellness Exam: - Denies recent weight loss or gain, fever, chills, headaches, changes in hearing or vision, neck swelling, dyspnea, cough, wheezing, chest pain, leg swelling, palpitations, orthopnea, nausea, emesis, diarrhea, constipation, dysuria, hematuria, joint pain, rashes, itching, excessive thirst, syncope, seizures, tremors, or suicidal ideation. - No hospitalizations, ER visits, surgeries, or procedures in the past year. - History of anxiety; previously prescribed medication for anxiety, used for about a week with good effect, then discontinued. - History of allergies. - Tends to get impacted cerumen. - No recent mammogram; usually scheduled in June with gynecological visit. Bradycardia: - Resting heart rate reportedly around 60 bpm. - Concerns about whether this heart rate is too low. - Participates in high-intensity interval training at [employer]. - Reports difficulty elevating heart rate during exercise compared to peers. - Engages in 28-minute treadmill sessions, primarily power walking with occasional jogging to increase heart rate. - Heart rate reportedly decreases rapidly post-exercise. Hypermagnesemia: - Recent lab results showed elevated magnesium levels. - Consumes nuts and peanut butter; has reduced nut intake after reading about magnesium content. 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 (Asc-Us) - 03/02/2018 Hydronephrosis, Bilateral - 06/24/2016 Unspecified Disorder of Kidney and Ureter - 09/17/2007 Comment: UPJ obstruction ROS: Constitutional: (?) weight loss, (?) weight gain, (?) fever, (?) chills Head: (?) headache Eyes: (?) visual changes Ears/Nose/Mouth/Throat: (?) hearing changes Neck: (?) neck lumps, (?) neck swelling Cardiovascular: (?) chest pain, (?) palpitations, (?) lower extremity swelling, (?) orthopnea Respiratory: (?) dyspnea, (?) cough, (?) wheezing PAST MEDICAL HISTORY Diagnosis Date Snoring Stress incontinence of urine 07/16/2018 UPJ obstruction, congenital bilateral R>L Urinary tract infection with hematuria 09/27/2018 PAST SURGICAL HISTORY Procedure Laterality Date COLONOSCOPY FLX DX W/COLLJ SPEC WHEN PFRMD 01/25/2018 Colonoscopy CYSTOSCOPY 07/13/2018 with bladder sling placement; excision of sling 07/27/18 DILATION AND CURETTAGE DXAND/THER NONOBSTETRIC Dilation AND curettage, x 2 LAPAROSCOPIC APPENDECTOMY 09/17/07 PAST SURGICAL HISTORY OF 1999 Tubal , right salpingectomy Medication List Current Outpatient Medications Medication Sig Dispense Refill acetaminophen 325 mg cap Take 2 capsules by mouth as needed. Ascorbic Acid 500 mg chew Take 500 mg by mouth once daily. ibuprofen (MOTRIN) 200 mg tablet Take 200 mg by mouth every 6 hours as needed. Multivitamin capsule Take 1 capsule by mouth once daily. Ccbzq-8-ONM-EPA-Fish Oil 1,000 mg (120 mg-180 mg) cap Take 2 g by mouth twice daily. Cholecalciferol, Vitamin D3, 25 mcg (1,000 unit) cap Take 1,000 Units by mouth once daily. (Patient not taking: Reported on 02/06/2025) No current facility-administered medications for this visit. Weight Summary: Weight Change: Body mass index is 24.78 kg/m?. Last Wt 02/06/25 : 61.9 kg (136 lb 6.4 oz) 07/01/24 : 63 kg (139 lb) 02/06/24 : 59.9 kg (132 lb) 01/22/24 : 59.9 kg (132 lb) 01/05/23 : 63 kg (139 lb) Physical Exam: General Appearance: well appearing, alert and oriented. Skin: no suspicious lesion, no rash, no open sores Head: normocephalic, no obvious masses, lesions, tenderness or abnormalities. Eyes: Anicteric sclera. Pupils are equally round and reactive to light. Extraocular movements are intact. No nystagmus. Fundi benign. Ears: external ears normal, canals clear, TM's normal. Hearing to conversational voice intact. Nose/Sinuses: nares pink boggy and smooth, septum midline, mucosa normal, no drainage or sinus tende (more content not included)... [facility] 02-06-2025 History of Presen t illness Narrative Chief Reason For Appointment Patient presents with: Physical Tawanna Reyes is a 59 year old female who presents for annual exam. Last office visit date: 02/06/2024 Accompanied By self only Have you had any critical events, hospital stays, ER visits, surgeries or procedures since your last visit here in our office: No Specialists/Other Healthcare Providers Seen: Patient Care Team: Terra Mendoza MD as PCP - Maurilio Collazo APRN.SUZAN as Book Jacket Cover Machine Operator (Family Medicine) Concerns today: None HPI Wellness visit Tawanna Reyes is a 59-year-old female presenting for an annual wellness visit, with additional concerns about low heart rate and elevated magnesium levels. Annual Wellness Exam: - Denies recent weight loss or gain, fever, chills, headaches, changes in hearing or vision, neck swelling, dyspnea, cough, wheezing, chest pain, leg swelling, palpitations, orthopnea, nausea, emesis, diarrhea, constipation, dysuria, hematuria, joint pain, rashes, itching, excessive thirst, syncope, seizures, tremors, or suicidal ideation. - No hospitalizations, ER visits, surgeries, or procedures in the past year. - History of anxiety; previously prescribed medication for anxiety, used for about a week with good effect, then discontinued. - History of allergies. - Tends to get impacted cerumen. - No recent mammogram; usually scheduled in June with gynecological visit. Bradycardia: - Resting heart rate reportedly around 60 bpm. - Concerns about whether this heart rate is too low. - Participates in high-intensity interval training at [employer]. - Reports difficulty elevating heart rate during exercise compared to peers. - Engages in 28-minute treadmill sessions, primarily power walking with occasional jogging to increase heart rate. - Heart rate reportedly decreases rapidly post-exercise. Hypermagnesemia: - Recent lab results showed elevated magnesium levels. - Consumes nuts and peanut butter; has reduced nut intake after reading about magnesium content. 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 (Asc-Us) - 03/02/2018 Hydronephrosis, Bilateral - 06/24/2016 Unspecified Disorder of Kidney and Ureter - 09/17/2007 Comment: UPJ obstruction ROS: Constitutional: (?) weight loss, (?) weight gain, (?) fever, (?) chills Head: (?) headache Eyes: (?) visual changes Ears/Nose/Mouth/Throat: (?) hearing changes Neck: (?) neck lumps, (?) neck swelling Cardiovascular: (?) chest pain, (?) palpitations, (?) lower extremity swelling, (?) orthopnea Respiratory: (?) dyspnea, (?) cough, (?) wheezing PAST MEDICAL HISTORY Diagnosis Date Snoring Stress incontinence of urine 07/16/2018 UPJ obstruction, 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 Ascorbic Acid 500 mg chew Take 500 mg by mouth once daily. ibuprofen (MOTRIN) 200 mg tablet Take 200 mg by mouth every 6 hours as needed. Multivitamin capsule Take 1 capsule by mouth once daily. Kkmha-5-EWW-EPA-Fish Oil 1,000 mg (120 mg-180 mg) cap Take 2 g by mouth twice daily. Cholecalciferol, Vitamin D3, 25 mcg (1,000 unit) cap Take 1,000 Units by mouth once daily. (Patient not taking: Reported on 02/06/2025) No current facility-administered medications for this visit. Weight Summary: Weight Change: Body mass index is 24.78 kg/m . Last Wt 02/06/25 : 61.9 kg (136 lb 6.4 oz) 07/01/24 : 63 kg (139 lb) 02/06/24 : 59.9 kg (132 lb) 01/22/24 : 59.9 kg (132 lb) 01/05/23 : 63 kg (139 lb) Physical Exam: General Appearance: well appearing, alert and oriented. Skin: no suspicious lesion, no rash, no open sores Head: normocephalic, no obvious masses, lesions, tenderness or abnormalities. Eyes: Anicteric sclera. Pupils are equally round and reactive to light. Extraocular movements are intact. No nystagmus. Fundi benign. Ears: external ears normal, canals clear, TM's normal. Hearing to conversational voice intact. Nose/Sinuses: nares pink boggy and smooth, septum midline, mucosa normal, no drainage or sinus tenderness. Oropharynx: lips, mucosa, and tongue normal, oropharynx normal. Neck: trachea midline, thyroid without mass or nodularity, thyroid moves normally with swallow, no regional lymphadenopathy. Carotids normal upstroke, no bruit or thrill. Back:no pain to palpation of vertebrae, no percussion tenderness over spine. Lungs: Chest rise & fall symmetrical, Lungs clear to auscultation. No wheezing or rhonchi. No rales. Abdomen: normal bowel sounds, no mass, non-tender Heart: S1S2, no gallop, no rub, no murmur Lymph Nodes: no lymphadenopathy. Ext: no clubbing, cyanosis or edema. Mood: bright affect, speech clear, answers questions appropriately SCREENINGS Health Maintenance Listing HIV Screening Depression Screening Anxiety Screening Mammogram Screening TEST RESULTS: Lab Studies: Date of lab studies: - glucose - potassium - Creatinine, gfr - LFTs Lipid: WBC, H&H, Platelets: A1C: Vitamin D: Other: A/P: 1. Encounter for screening examination for other mental health and behavioral disorders (Z13.39) 2. Screening for depression (Z13.31) - No current symptoms of anxiety or depression reported. - Previous short-term use of anti-anxiety medication was effective. 3. Screening breast examination (Z12.39) - Mammogram scheduled for June. 4. Screening for lipid disorders (Z13.220) - Ordered lipid panel. 5. Wellness examination (Z00.00) - No significant findings on physical examination. - Ordered CBC and BMP. Discussed treatment plan and patient voices understanding. Patient's questions answered appropriately. Medications and potential side effects were discussed and patient voices understanding. Return to the office as scheduled or as needed for worsening/no improvement. Follow Up Plans: 12 m documented in this encounter [facility] 07-02-2024 Telephone encounter Note Call to pt and notified her of results and recommendations below from Provider. Pt verbalized understanding. Lindy Buchanan MA [facility] 07-02-2024 Miscellaneous Notes Call to pt and notified her of results and recommendations below from Provider. Pt verbalized understanding. Lindy Buchanan MA Mammogram is normal; repeat in one year Terra Mendoza MD Pt had mammogram done at [facility]. Report attached. View External Imaging - Mammography [ID [id number]] Misa Gomez MA documented in this encounter [facility] 07-02-2024 Telephone encounter Note Mammogram is normal; repeat in one year Terra Mendoza MD [facility] 07-02-2024 Telephone encounter Note Pt had mammogram done at [facility]. Report attached. View External Imaging - Mammography [ID [id number]] Misa Gomez MA [facility] 07-01-2024 Instructions Cande Gorman MD - 07/01/2024 2:34 PM EST BONE MINERAL DENSITY PATIENT INSTRUCTIONS ========= Bone mineral density testing measures the amount of calcium in certain parts of your bones. This information determines how strong your bones are. The test is used to detect osteoporosis, a disease in which the bone's mineral content and density are low, increasing a person's risk of fractures. The lumbar spine (lower back) and the hip are the skeletal sites usually examined. For the test, remember that: 1. You cannot take this test if you are . 2. Eat a normal diet on the day of the test. 3. Take your medications as you normally would. 4. DO NOT take calcium supplements (such as Tums) for 24 hours before the test. 5. On the day of the test, leave valuables (jewelry or credit cards) at home. 6. The test should be performed prior to oral, rectal or IV contrast studies, or at least 7 days after any of these studies. For the test, you may be asked to wear a hospital gown. You will lie on your back, on a padded table, in a comfortable position. Generally, you can resume your usual activities immediately. documented in this encounter [facility] 07-01-2024 Note HNO ID: [id number] Author: CANDE GORMAN MD Service: ? Author Type: Physician Type: Progress Notes Filed: 07/01/2024 14:39 Note Text: Tawanna is a 58 year old who presents for an annual gynecologic exam without complaints. Postmenopausal: yes HRT use: No. Last Pap: 10/10/2019 normal HPV: 10/10/2019 negative History of abnormal pap: No Last mammogram: 2023 pending History of abnormal mammogram: No Sexually active: Yes OB History T2 L2 SAB2 IAB0 Ectopic1 Multiple0 Live Births2 Liability Claims Representative History LMP: 01/20/2021 (Approximate), Postmenopausal Age at Menarche: Age at First : Age at Menopause: Liability Claims Representative History Comments: Sexual Activity: Yes; Male Contraception: No contraception data on record PAST MEDICAL HISTORY Diagnosis Date Snoring Stress incontinence of urine 07/16/2018 UPJ obstruction, congenital bilateral R>L Urinary tract infection with hematuria 09/27/2018 PAST SURGICAL HISTORY Procedure Laterality Date COLONOSCOPY FLX DX W/COLLJ SPEC WHEN PFRMD 01/25/2018 Colonoscopy CYSTOSCOPY 07/13/2018 with bladder sling placement; excision of sling 07/27/18 DILATION AND CURETTAGE DXAND/THER NONOBSTETRIC Dilation AND curettage, x 2 LAPAROSCOPIC APPENDECTOMY 09/17/07 PAST SURGICAL HISTORY OF 1999 Tubal , right salpingectomy FAMILY HISTORY Problem Relation Age of Onset Cancer Father Bladder SOCIAL HISTORY Social History Tobacco Use Smoking status: Never Smokeless tobacco: Never Vaping Use Vaping status: Never Used Substance Use Topics Alcohol use: Yes Comment: rarely Drug use: No REVIEW OF SYSTEMS Abdomen: No abdominal pain, nausea, vomiting, diarrhea, or constipation. No bloating, early satiety, indigestion, or increased flatulence. Bladder: No dysuria, gross hematuria, urinary frequency, urinary urgency, or incontinence Breast: No breast lumps, nipple d/c, overlying skin changes, redness or skin retraction Allergies and current medication updated:Yes SENSITIVE EXAM: The sensitive examination was discussed with the Patient or Patient's Authorized Timber Harvester Operator. As applicable, any other physician, advance practice provider, medical student, or other health professional student that will be observing or involved in the sensitive examination for educational or training purposes was discussed with the Patient or Authorized Timber Harvester Operator. The Patient or Authorized Timber Harvester Operator has agreed to proceed with the sensitive examination. (Sensitive examination includes inspection and/or palpation of the breasts, pelvis, prostate and anorectal regions). EXAM: Ht 5' 1.25 (1.56m) Wt 139 lb (63.1kg) LMP 01/20/2021 BMI 26.04 kg/(m2). GENERAL: pleasant, female in no apparent distress HEENT: Normocephalic, atraumatic, mucus membranes moist, and no lesions NECK: Supple, full range of motion, no adenopathy, and thyroid normal DERMATOLOGY: Normal, without lesions, non-icteric, and non-hirsute BREAST: soft, non-tender, symmetric, no dominant mass, normal nipple-areolar complex, no lymphadenopathy, and no nipple discharge CHEST: Normal inspiratory effort ABDOMEN: soft, non-tender, and no masses PELVIC: external genitalia normal, normal Bartholin's glands, urethra, [place]'s glands, no vulvar lesions, no cervical lesions, good vaginal support, physiologic discharge present, normal appearing perineal body and perianal region BIMANUAL: uterus normal size, shape and consistency, no adnexal masses, and non-tender RECTOVAGINAL: deferred. NEURO: alert and oriented x3,exam grossly non-focal EXTREMITIES: normal ASSESSMENT/PLAN: 1) Health maintenance: Pap done with HPV. Mammogram ordered Colon cancer screening: up to date with screening BMD: up to date 2) Follow up one year or sooner as needed Cande Gorman MD [facility] 07-01-2024 History of Presen t illness Narrative Tawanna is a 58 year old who presents for an annual gynecologic exam without complaints. Postmenopausal: yes HRT use: No. Last Pap: 10/10/2019 normal HPV: 10/10/2019 negative History of abnormal pap: No Last mammogram: 2023 pending History of abnormal mammogram: No Sexually active: Yes OB History T2 L2 SAB2 IAB0 Ectopic1 Multiple0 Live Births2 Liability Claims Representative History LMP: 01/20/2021 (Approximate), Postmenopausal Age at Menarche: Age at First : Age at Menopause: Liability Claims Representative History Comments: Sexual Activity: Yes; Male Contraception: No contraception data on record PAST MEDICAL HISTORY Diagnosis Date Snoring Stress incontinence of urine 07/16/2018 UPJ obstruction, congenital bilateral R>L Urinary tract infection with hematuria 09/27/2018 PAST SURGICAL HISTORY Procedure Laterality Date COLONOSCOPY FLX DX W/COLLJ SPEC WHEN PFRMD 01/25/2018 Colonoscopy CYSTOSCOPY 07/13/2018 with bladder sling placement; excision of sling 07/27/18 DILATION & CURETTAGE DX&/THER NONOBSTETRIC Dilation & curettage, x 2 LAPAROSCOPIC APPENDECTOMY 09/17/07 PAST SURGICAL HISTORY OF 1998 Tubal , right salpingectomy FAMILY HISTORY Problem Relation Age of Onset Cancer Father Bladder SOCIAL HISTORY Social History Tobacco Use Smoking status: Never Smokeless tobacco: Never Vaping Use Vaping status: Never Used Substance Use Topics Alcohol use: Yes Comment: rarely Drug use: No REVIEW OF SYSTEMS Abdomen: No abdominal pain, nausea, vomiting, diarrhea, or constipation. No bloating, early satiety, indigestion, or increased flatulence. Bladder: No dysuria, gross hematuria, urinary frequency, urinary urgency, or incontinence Breast: No breast lumps, nipple d/c, overlying skin changes, redness or skin retraction Allergies and current medication updated:Yes SENSITIVE EXAM: The sensitive examination was discussed with the Patient or Patient's Authorized Timber Harvester Operator. As applicable, any other physician, advance practice provider, medical student, or other health professional student that will be observing or involved in the sensitive examination for educational or training purposes was discussed with the Patient or Authorized Timber Harvester Operator. The Patient or Authorized Timber Harvester Operator has agreed to proceed with the sensitive examination. (Sensitive examination includes inspection and/or palpation of the breasts, pelvis, prostate and anorectal regions). EXAM: Ht 5' 1.25 (1.56m) Wt 139 lb (63.1kg) LMP 01/20/2021 BMI 26.04 kg/(m^2). GENERAL: pleasant, female in no apparent distress HEENT: Normocephalic, atraumatic, mucus membranes moist, and no lesions NECK: Supple, full range of motion, no adenopathy, and thyroid normal DERMATOLOGY: Normal, without lesions, non-icteric, and non-hirsute BREAST: soft, non-tender, symmetric, no dominant mass, normal nipple-areolar complex, no lymphadenopathy, and no nipple discharge CHEST: Normal inspiratory effort ABDOMEN: soft, non-tender, and no masses PELVIC: external genitalia normal, normal Bartholin's glands, urethra, [place]'s glands, no vulvar lesions, no cervical lesions, good vaginal support, physiologic discharge present, normal appearing perineal body and perianal region BIMANUAL: uterus normal size, shape and consistency, no adnexal masses, and non-tender RECTOVAGINAL: deferred. NEURO: alert and oriented x3,exam grossly non-focal EXTREMITIES: normal ASSESSMENT/PLAN: 1) Health maintenance: Pap done with HPV. Mammogram ordered Colon cancer screening: up to date with screening BMD: up to date 2) Follow up one year or sooner as needed Cande Gorman MD documented in this encounter [facility] 02-06-2024 Instructions Dacia Cardenas APRN.CNP - 02/06/2024 9:52 AM EDT 1) Continue hydroxyzine as needed 2) Remember to follow a diet low in saturated 3) Follow up yearly documented in this encounter [facility] 02-06-2024 History of Presen t illness Narrative This is a 58 year old female who presents today with: Patient presents with: Anxiety: Follow up HISTORY OF PRESENT ILLNESS: Tawanna Reyes is a 58 year old female. Patient presents with: Anxiety: Follow up Stress level is improved. Closed on daughter's house. Takes one scheduled hydroxyzine in the morning. Then, stretching second dose to evening. Ears need checked. Used debrox and then water pick. Nothing came out. Eating better- holding food down. Sleeping better PAST MEDICAL HISTORY: PAST MEDICAL HISTORY Diagnosis Date Snoring Stress incontinence of urine 07/16/2018 UPJ obstruction, congenital bilateral R>L Urinary tract infection with hematuria 09/27/2018 PAST SURGICAL HISTORY Procedure Laterality Date COLONOSCOPY FLX DX W/COLLJ SPEC WHEN PFRMD 01/25/2018 Colonoscopy CYSTOSCOPY 07/13/2018 with bladder sling placement; excision of sling 07/27/18 DILATION & CURETTAGE DX&/THER NONOBSTETRIC Dilation & curettage, x 2 LAPAROSCOPIC APPENDECTOMY 09/17/07 PAST SURGICAL HISTORY OF 1999 Tubal , right salpingectomy ALLERGIES Contrast Dye and Hydrocodone MEDICATIONS Current Outpatient Medications Medication Sig hydrOXYzine HCl (ATARAX) 25 mg tablet Take 1 tablet by mouth three times a day as needed. acetaminophen 325 mg cap Take 2 capsules by mouth as needed. Ascorbic Acid 500 mg chew Take 500 mg by mouth once daily. ibuprofen (MOTRIN) 200 mg tablet Take 200 mg by mouth every 6 hours as needed. Multivitamin capsule Take 1 capsule by mouth once daily. Unftz-3-GNP-EPA-Fish Oil 1,000 mg (120 mg-180 mg) cap Take 2 g by mouth twice daily. Cholecalciferol, Vitamin D3, 25 mcg (1,000 unit) cap Take 1,000 Units by mouth once daily. No current facility-administered medications for this visit. FAMILY HISTORY Problem Relation Age of Onset Cancer Father Bladder Social History Tobacco Use Smoking status: Never Smokeless tobacco: Never Vaping Use Vaping Use: Never used Substance Use Topics Alcohol use: Yes Comment: rarely Drug use: No EXAM: BP 122/70 Pulse 67 Resp 16 Wt 59.9 kg (132 lb) LMP 01/20/2021 (Approximate) SpO2 96% BMI 24.60 kg/m PHYSICAL EXAM: Physical Exam Vitals reviewed. Constitutional: Appearance: Normal appearance. HENT: Head: Normocephalic. Right Ear: Ear canal normal. There is impacted cerumen. Left Ear: Tympanic membrane and ear canal normal. There is no impacted cerumen. Neck: Vascular: No carotid bruit. Cardiovascular: Rate and Rhythm: Normal rate and regular rhythm. Pulses: Normal pulses. Heart sounds: Normal heart sounds. Pulmonary: Effort: Pulmonary effort is normal. Breath sounds: Normal breath sounds. Musculoskeletal: Cervical back: No tenderness. Skin: General: Skin is warm and dry. Neurological: Mental Status: She is alert. Psychiatric: Mood and Affect: Mood normal. Behavior: Behavior normal. LABS: reviewed results ASSESSMENT/PLAN: 1. Hyperlipidemia, mixed - ICD9: 272.2, ICD10: E78.2 (primary diagnosis) - New diagnosis - Counseled on healthy diet and regular exercise 2. JUD (generalized anxiety disorder) - ICD9: 300.02, ICD10: F41.1 Improved - Hydroxyzine 25 mg as needed - Improved Discussed treatment plan and patient voices understanding. Patient's questions answered appropriately. Medications and potential side effects were discussed and patient voices understanding. Return to the office as scheduled or as needed for worsening/no improvement. Dacia Cardenas APRN.SUZAN documented in this encounter [facility] 01-22-2024 Instructions Dacia Cardenas APRN.CNS - 01/22/2024 3:44 PM EDT 1) Hydroxyzine 12.5 mg (1/2 tab) or 25 mg (1 tab) 3 x day as needed 2) Check labs 3) Follow up in 2 weeks- video if pt. prefers documented in this encounter [facility] 01-22-2024 History of Presen t illness Narrative This is a 58 year old female who presents today with: Patient presents with: Anxiety Stress HISTORY OF PRESENT ILLNESS: Tawanna Reyes is a 58 year old female. Patient presents with: Anxiety Stress Feels woozy. Took Nyquil to sleep last night. Stressed but not sure about what. Daughter buying home. PAST MEDICAL HISTORY: PAST MEDICAL HISTORY Diagnosis Date Snoring Stress incontinence of urine 07/16/2018 UPJ obstruction, congenital bilateral R>L Urinary tract infection with hematuria 09/27/2018 PAST SURGICAL HISTORY Procedure Laterality Date COLONOSCOPY FLX DX W/COLLJ SPEC WHEN PFRMD 01/25/2018 Colonoscopy CYSTOSCOPY 07/13/2018 with bladder sling placement; excision of sling 07/27/18 DILATION & CURETTAGE DX&/THER NONOBSTETRIC Dilation & curettage, x 2 LAPAROSCOPIC APPENDECTOMY 09/17/07 PAST SURGICAL HISTORY OF 1999 Tubal , right salpingectomy ALLERGIES Contrast Dye and Hydrocodone MEDICATIONS Current Outpatient Medications Medication Sig acetaminophen 325 mg cap Take 2 capsules by mouth as needed. Ascorbic Acid 500 mg chew Take 500 mg by mouth once daily. ibuprofen (MOTRIN) 200 mg tablet Take 200 mg by mouth every 6 hours as needed. Multivitamin capsule Take 1 capsule by mouth once daily. Nktrg-5-BLC-EPA-Fish Oil 1,000 mg (120 mg-180 mg) cap Take 2 g by mouth twice daily. Cholecalciferol, Vitamin D3, 25 mcg (1,000 unit) cap Take 1,000 Units by mouth once daily. No current facility-administered medications for this visit. FAMILY HISTORY Problem Relation Age of Onset Cancer Father Bladder Social History Tobacco Use Smoking status: Never Smokeless tobacco: Never Vaping Use Vaping Use: Never used Substance Use Topics Alcohol use: Yes Comment: rarely Drug use: No REVIEW OF SYSTEMS GENERAL: A few pounds weight loss, + malaise, no fevers/chills HEENT: Negative for frequent or significant headaches, No changes in hearing or vision. NECK: Negative for lumps, goiter, pain and significant neck swelling RESPIRATORY: Negative for cough, hemoptysis, wheezing, dyspnea or shortness of breath CARDIOVASCULAR: Negative for chest pain, leg swelling, orthopnea, + palpitations GI: No nausea, vomiting, + diarrhea/ no constipation. No hematochezia/melena. No heartburn or reflux symptoms. Can't hold food down. : No history of dysuria, frequency or incontinence MUSCULOSKELETAL: Negative for joint pain or swelling. SKIN: Negative for lesions, rash, and itching ENDOCRINE: Negative for cold or heat intolerance, polyuria, polydipsia and goiter NEURO: No history of headaches, syncope, paralysis, seizures or tremors MOOD: Negative for depression, + anxiety, or suicidal ideation. EXAM: BP 118/68 Pulse 73 Resp 16 Wt 59.9 kg (132 lb) LMP 01/20/2021 (Approximate) SpO2 97% BMI 24.60 kg/m PHYSICAL EXAM: Physical Exam Vitals reviewed. Constitutional: Appearance: Normal appearance. HENT: Head: Normocephalic. Right Ear: Ear canal normal. There is impacted cerumen. Left Ear: Ear canal normal. There is no impacted cerumen. Cardiovascular: Rate and Rhythm: Regular rhythm. Heart sounds: Normal heart sounds. No murmur heard. No gallop. Pulmonary: Breath sounds: Normal breath sounds. No wheezing, rhonchi or rales. Abdominal: Palpations: Abdomen is soft. Tenderness: There is no abdominal tenderness. Musculoskeletal: General: Normal range of motion. Cervical back: Normal range of motion. Skin: General: Skin is warm and dry. Neurological: Mental Status: She is alert. PHQ- score 9 JUD-7 14 LABS: screening labs today ASSESSMENT/PLAN: 1. Wellness examination - ICD9: V70.0, ICD10: Z00.00 (primary diagnosis) - Counseled on healthy diet and regular exercise - BEHAVIORAL HEALTH SCREENING - H PYLORI IGG AB - COMPLETE BLOOD COUNT AND DIFFERENTIAL - COMPREHENSIVE METABOLIC PANEL - VITAMIN B12 - THYROID STIMULATING HORMONE - T4 FREE/FREE THYROXINE - LIPID PANEL, NONFASTING - MAGNESIUM - HEMOGLOBIN A1C 2. JUD (generalized anxiety disorder) - ICD9: 300.02, ICD10: F41.1 Getting worse - BEHAVIORAL HEALTH SCREENING - H PYLORI IGG AB - COMPLETE BLOOD COUNT AND DIFFERENTIAL - COMPREHENSIVE METABOLIC PANEL - VITAMIN B12 - THYROID STIMULATING HORMONE - T4 FREE/FREE THYROXINE - LIPID PANEL, NONFASTING - MAGNESIUM - HEMOGLOBIN A1C - Hydroxyzine 12.5 -25 mg up to 3 x day as needed Follow up in 2 weeks Discussed treatment plan and patient voices understanding. Patient's questions answered appropriately. Medications and potential side effects were discussed and patient voices understanding. Return to the office as scheduled or as needed for worsening/no improvement. Dacia Cardenas APRN.CNS documented in this encounter [facility] 01-06-2023 Miscellaneous Notes Pt called and notified of results and recommendations from Provider, verbalized understanding. Lindy Buchanan Ma Can you please call the patient and let her know that I reviewed her lab results. Labs were relatively normal. A1c 5.5, no signs of diabetes. LDL cholesterol was elevated. I would recommend lifestyle changes at home to help improve this. Try to decrease processed foods in the diet. Incorporate lean protein, increase vegetables, get some form of exercise. Please let me know if she has any questions. Thank you. Iliana Church APRN.CNP documented in this encounter [facility] 01-05-2023 Instructions Rosalba Person - 01/05/2023 9:40 AM EDT Get fasting labs completed Return in 1 year or sooner as needed Continue to eat well balanced diet and some form of exercie documented in this encounter [facility] 01-05-2023 History of Presen t illness Narrative This is a 57 year old female who presents today with: Patient presents with: Yearly Exam HISTORY OF PRESENT ILLNESS: Tawanna Reyes is a 57 year old female. Patient presents with: Yearly Exam Here in the office for wellness exam. Has been sometime since last seen. Diet: well rounded diet Exercise: walk and occasional weight lifting Vision: Due, uses readers as needed Dental: up to date Sleep: 7 hours, waking multiple times d/t hot flashes then difficulty falling back asleep. Mood: denies increased sadness, anxiety, SI/HI Mammogram: December 2022 with [facility]. Menses: menopause : period free for 2 years Pap: HX Abnormal Paps in the past, Last Pap 2022, WNL. Colonoscopy: Last colonoscopy January 2018, due in 2027. Vaccines: Tdap due PAST MEDICAL HISTORY: PAST MEDICAL HISTORY Diagnosis Date Snoring Stress incontinence of urine 07/16/2018 UPJ obstruction, congenital bilateral R>L Urinary tract infection with hematuria 09/27/2018 PAST SURGICAL HISTORY Procedure Laterality Date COLONOSCOPY FLX DX W/COLLJ SPEC WHEN PFRMD 01/25/2018 Colonoscopy CYSTOSCOPY 07/13/2018 with bladder sling placement; excision of sling 07/27/18 DILATION & CURETTAGE DX&/THER NONOBSTETRIC Dilation & curettage, x 2 LAPAROSCOPIC APPENDECTOMY 09/17/07 PAST SURGICAL HISTORY OF 1999 Tubal , right salpingectomy ALLERGIES Contrast Dye and Hydrocodone MEDICATIONS Current Outpatient Medications Medication Sig acetaminophen 325 mg cap Take 2 capsules by mouth as needed. Ascorbic Acid 500 mg chew Take 500 mg by mouth once daily. ibuprofen (MOTRIN) 200 mg tablet Take 200 mg by mouth every 6 hours as needed. Multivitamin capsule Take 1 capsule by mouth once daily. Gwwlx-2-ARO-EPA-Fish Oil 1,000 mg (120 mg-180 mg) cap Take 2 g by mouth twice daily. Cholecalciferol, Vitamin D3, 25 mcg (1,000 unit) cap Take 1,000 Units by mouth once daily. No current facility-administered medications for this visit. FAMILY HISTORY Problem Relation Age of Onset Cancer Father Bladder Social History Tobacco Use Smoking status: Never Smokeless tobacco: Never Vaping Use Vaping Use: Never used Substance Use Topics Alcohol use: Yes Comment: rarely Drug use: No REVIEW OF SYSTEMS GENERAL: No weight loss, malaise or fevers/chills HEENT: Negative for frequent or significant headaches, No changes in hearing or vision. NECK: Negative for lumps, goiter, pain and significant neck swelling RESPIRATORY: Negative for cough, hemoptysis, wheezing, dyspnea or shortness of breath CARDIOVASCULAR: Negative for chest pain, leg swelling, orthopnea, or palpitations GI: No nausea, vomiting, or diarrhea/constipation. No hematochezia/melena. No heartburn or reflux symptoms. : No history of dysuria, frequency or incontinence MUSCULOSKELETAL: Negative for joint pain or swelling. SKIN: Negative for lesions, rash, and itching ENDOCRINE: Negative for cold or heat intolerance, polyuria, polydipsia and goiter NEURO: No history of headaches, syncope, paralysis, seizures or tremors MOOD: Negative for depression, anxiety, or suicidal ideation. EXAM: BP 112/68 Pulse 67 Resp 16 Ht 156 cm (5' 1.42) Wt 63 kg (139 lb) LMP 01/20/2021 (Approximate) SpO2 97% BMI 25.91 kg/m PHYSICAL EXAM: General Appearance: Well appearing, alert, in no acute distress, well-hydrated, well nourished. Skin: Skin color, texture, turgor normal, no suspicious rashes or lesions. Head: Normocephalic, no masses, lesions, tenderness or abnormalities. Eyes: Anicteric sclera. Pupils are equally round and reactive to light. Extraocular movements are intact. Ears: External ears normal, canals clear. Bilateral cerumen impactions noted, TM left pearly dunaway, unable to visualize TM on the right. Cerumen very hard. Unable to remove. Neck: Supple, no adenopathy; thyroid symmetric, normal size, no bruits. Lungs: Lungs clear to auscultation. No wheezing, rhonchi, rales.. Heart: RRR without murmur, gallop, or rubs. No ectopy. Abdomen: Normal abdominal exam, Abdomen soft, non-tender. Bowel sounds normal. No masses, organomegaly, Negative CVA tenderness. Extremities: No deformities, edema, skin discoloration, clubbing or cyanosis. Good capillary refill. Musculoskeletal: No joint swelling, deformity, or tenderness. Peripheral Pulses: Normal, Capillary refill <2secs, strong peripheral pulses, Pulses palpable. Neurologic: Gait normal. Reflexes normal and symmetric. Sensation grossly intact. ASSESSMENT/PLAN: 1. Wellness examination - ICD9: V70.0, ICD10: Z00.00 (primary diagnosis) - Counseled on healthy diet and regular exercise - Calcium intake with supplements or by diet of 1000 mg/day for under 50, 4511-7179 mg/day for 50+ - Depression screening tool completed and reviewed with patient. Based on score and interview, patient is not at risk for depression and recommended no further intervention at this time. - Patient was counseled [id number] by myself (the billing provider) for the following immunizations and vaccine components, including side effects: DTaP. Patient consents for immunization and understands risks and benefits. A VIS sheet on each immunization was given to the patient. - Follow up for annual exam in one year - COMP METABOLIC PANEL 2. Bilateral impacted cerumen - ICD9: 380.4, ICD10: H61.23 - Use Debrox [id number] in both ears for the next 5 days. May return back to office for ear lavage if needed. 3. Screening cholesterol level - ICD9: V77.91, ICD10: Z13.220 - LIPID PANEL BASIC 4. Screening for diabetes mellitus - ICD9: V77.1, ICD10: Z13.1 - HGB A1C 5. Encounter for immunization - ICD9: V03.89, ICD10: Z23 - TDAP VACCINE, AGE 7+ YR (ADACEL, BOOSTRIX) Follow-up in 1 year or sooner pending test results. Discussed treatment plan and patient voices understanding. Patient's questions answered appropriately. Medications and potential side effects were discussed and patient voices understanding. Iliana Church APRN.SUZAN This note was partially generated using [employer] voice recognition system. Note was reviewed for accuracy. There may be minor misspellings or grammar miscues with [employer] voice recognition. documented in this encounter [facility] 12-21-2022 History of Presen t illness Narrative Tawanna is a 57 year old who presents for an annual gynecologic exam without complaints. Postmenopausal: no HRT use: No. 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 Urinary tract infection with hematuria 09/27/2018 PAST SURGICAL HISTORY Procedure Laterality Date COLONOSCOPY FLX DX W/COLLJ SPEC WHEN PFRMD 01/25/2018 Colonoscopy CYSTOSCOPY 07/13/2018 with bladder sling placement; excision of sling 07/27/18 DILATION & CURETTAGE DX&/THER NONOBSTETRIC Dilation & curettage, x 2 LAPAROSCOPIC APPENDECTOMY 09/17/07 PAST SURGICAL HISTORY OF 1999 Tubal , right salpingectomy FAMILY HISTORY Problem Relation Age of Onset Cancer Father Bladder SOCIAL HISTORY Social History Tobacco Use Smoking status: Never Smokeless tobacco: Never Vaping Use Vaping Use: Never used Substance Use Topics Alcohol use: Yes Comment: rarely Drug use: No REVIEW OF SYSTEMS Abdomen: No abdominal pain, nausea, vomiting, diarrhea, or constipation. No bloating, early satiety, indigestion, or increased flatulence. Bladder: No dysuria, gross hematuria, urinary frequency, urinary urgency, or incontinence Breast: No breast lumps, nipple d/c, overlying skin changes, redness or skin retraction Allergies and current medication updated:Yes EXAM: BP 110/64 Ht 5' 2 (1.58m) Wt 137 lb (62.1kg) LMP 01/20/2021 BMI 25.05 kg/(m^2). GENERAL: pleasant, female in no apparent distress HEENT: Normocephalic, atraumatic, mucus membranes moist, and no lesions NECK: Supple, full range of motion, no adenopathy, and thyroid normal DERMATOLOGY: Normal, without lesions, non-icteric, and non-hirsute BREAST: soft, non-tender, symmetric, no dominant mass, normal nipple-areolar complex, no lymphadenopathy, and no nipple discharge CHEST: Normal inspiratory effort ABDOMEN: soft, non-tender, and no masses PELVIC: external genitalia normal, normal Bartholin's glands, urethra, [place]'s glands, no vulvar lesions, no cervical lesions, good vaginal support, physiologic discharge present, normal appearing perineal body and perianal region BIMANUAL: uterus normal size, shape and consistency, no adnexal masses, and non-tender RECTOVAGINAL: deferred. NEURO: alert and oriented x3,exam grossly non-focal EXTREMITIES: normal ASSESSMENT/PLAN: 1) Health maintenance: Pap/HPV up to date. Mammogram ordered Colon cancer screening: up to date with screening 2) Follow up one year or sooner as needed Cande Gorman MD documented in this encounter [facility] 12-21-2021 History of Presen t illness Narrative Tawanna is a 56 year old who presents for an annual gynecologic exam without complaints. Has only had one UTI in the past year. Postmenopausal: yes HRT use: No. 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 Urinary tract infection with hematuria 09/27/2018 PAST SURGICAL HISTORY Procedure Laterality Date COLONOSCOPY FLX DX W/COLLJ SPEC WHEN PFRMD 01/25/2018 Colonoscopy CYSTOSCOPY 07/13/2018 with bladder sling placement; excision of sling 07/27/18 DILATION & CURETTAGE DX&/THER NONOBSTETRIC Dilation & curettage, x 2 LAPAROSCOPIC APPENDECTOMY 09/17/07 PAST SURGICAL HISTORY OF 1999 Tubal , right salpingectomy FAMILY HISTORY Problem Relation Age of Onset Cancer Father Bladder SOCIAL HISTORY Social History Tobacco Use Smoking status: Never Smoker Smokeless tobacco: Never Used Vaping Use Vaping Use: Never used Substance Use Topics Alcohol use: Yes Comment: rarely Drug use: No REVIEW OF SYSTEMS Abdomen: No abdominal pain, nausea, vomiting, diarrhea, or constipation. No bloating, early satiety, indigestion, or increased flatulence. Bladder: still some leaking, better than before sling but did not have a good experience w/ sling Breast: No breast lumps, nipple d/c, overlying skin changes, redness or skin retraction Allergies and current medication updated:Yes EXAM: BP 104/62 Ht 5' 2 (1.58m) Wt 145 lb (65.8kg) LMP 01/20/2021 BMI 26.51 kg/(m^2). GENERAL: pleasant, female in no apparent distress HEENT: Normocephalic, atraumatic, mucus membranes moist and no lesions NECK: Supple, full range of motion, no adenopathy and thyroid normal DERMATOLOGY: Normal, without lesions, non-icteric and non-hirsute BREAST: soft, non-tender, symmetric, no dominant mass, normal nipple-areolar complex, no lymphadenopathy and no nipple discharge CHEST: Normal inspiratory effort ABDOMEN: soft, non-tender and no masses PELVIC: external genitalia normal, normal Bartholin's glands, urethra, [place]'s glands, no vulvar lesions, no cervical lesions, good vaginal support, physiologic discharge present, normal appearing perineal body and perianal region BIMANUAL: uterus normal size, shape and consistency, no adnexal masses and non-tender RECTOVAGINAL: deferred. NEURO: alert and oriented x3,exam grossly non-focal EXTREMITIES: normal ASSESSMENT/PLAN: 1) Health maintenance: Pap done with HPV. Mammogram ordered Colon cancer screening: up to date with screening 2) Follow up one year or sooner as needed Cande Gorman MD documented in this encounter [facility] 10-13-2021 Miscellaneous Notes Pt called in asking if we can push her images from her last mammo thru to [facility]. Please call pt with any questions. Denae Hernandez documented in this encounter [facility] 09-27-2018 History of Past i llness Narrative Problem Noted Date Resolved Date Urinary tract infection with hematuria 9 05/25/2019 Stress incontinence of urine 07/16/201805/2019 Stress incontinence, female 05/21/201806/17 Overview: Added automatically from request for surgery [id number] APPENDICITIS ACUTE GANGRENOUS 10/08/2007 documented as of this encounter (statuses as of 10/28/2021) [facility] History of Past illness Narrative* Problem Noted Date Resolved Date Urinary tract infection with hematuria 9 05/25/2019 Stress incontinence of urine 07/16/201805/2019 Stress incontinence, female 05/21/201806/17 Overview: Added automatically from request for surgery [id number] APPENDICITIS ACUTE GANGRENOUS 10/08/2007 documented as of this encounter (statuses as of 11/29/2021) [facility] History of Past illness Narrative* Problem Noted Date Resolved Date Urinary tract infection with hematuria 9 05/25/2019 Stress incontinence of urine 07/16/201805/2019 Stress incontinence, female 05/21/201806/17 Overview: Added automatically from request for surgery [id number] APPENDICITIS ACUTE GANGRENOUS 10/08/2007 documented as of this encounter (statuses as of 12/21/2021) [facility] History of Past illness Narrative* Problem Noted Date Resolved Date Urinary tract infection with hematuria 9 05/25/2019 Stress incontinence of urine 07/16/201805/2019 Stress incontinence, female 05/21/201806/17 Overview: Added automatically from request for surgery [id number] APPENDICITIS ACUTE GANGRENOUS 10/08/2007 documented as of this encounter (statuses as of 12/21/2022) [facility] History of Past illness Narrative* Problem Noted Date Resolved Date Urinary tract infection with hematuria 9 05/25/2019 Stress incontinence of urine 07/16/201805/2019 Stress incontinence, female 05/21/201806/17 Overview: Added automatically from request for surgery [id number] APPENDICITIS ACUTE GANGRENOUS 10/08/2007 documented as of this encounter (statuses as of 01/05/2023) [facility] History of Past illness Narrative* Problem Noted Date Resolved Date Urinary tract infection with hematuria 9 05/25/2019 Stress incontinence of urine 07/16/201805/2019 Stress incontinence, female 05/21/201806/17 Overview: Added automatically from request for surgery [id number] APPENDICITIS ACUTE GANGRENOUS 10/08/2007 documented as of this encounter (statuses as of 01/06/2023) [facility] note* Diagnosis Encounter for screening mammogram for breast cancer documented in this encounter [facility] note* Diagnosis Encounter for gynecological examination (general) (routine) without abnormal findings Encounter for screening mammogram for breast cancer documented in this encounter [facility] noteNo assessment information availableWFostoria City [facility] Work Phone: Evaluation note* Diagnosis Encounter for gynecological examination (general) (routine) without abnormal findings- Primary Encounter for screening mammogram for malignant neoplasm of breast Other screening [facility] Diagnosis Wellness examination- Primary Bilateral impacted cerumen Impacted cerumen Screening cholesterol level Screening for lipoid disorders Screening for diabetes mellitus Encounter for immunization Need for other specified prophylactic vaccination against single bacterial disease documented in this encounter [facility] note* Diagnosis Wellness examination- Primary JUD (generalized anxiety disorder) Generalized anxiety disorder [facility]* Diagnosis Hyperlipidemia, mixed- Primary Mixed hyperlipidemia JUD (generalized anxiety disorder) Generalized anxiety disorder [facility] Diagnosis Encounter for screening mammogram for breast cancer [facility] Diagnosis Encounter for gynecological examination (general) (routine) without abnormal findings- Primary Encounter for screening for human papillomavirus (HPV) Special screening examination for human papillomavirus (HPV) Pap smear for cervical cancer screening Screening for malignant neoplasm of the cervix Loss of height Encounter for screening for osteoporosis Special screening for osteoporosis Asymptomatic postmenopausal status [facility] Diagnosis Screening breast examination- Primary Breast screening, unspecified Encounter for screening examination for other mental health and behavioral disorders Screening for depression Screening for lipid disorders Wellness examination [facility] Diagnosis Hyperlipidemia, mixed- Primary Mixed hyperlipidemia documented in this encounter [facility] note* Diagnosis Onset Date Resolution Status Admit Date Atrophic vaginitis acute Octobe r 2024 8:26am Mixed incontinence acute Octobe r 2024 8:26am Overactive bladder acute Octobe r 2024 8:26am UTI (urinary tract infection) acute April 25, 2025 8:26am [facility] Work Phone: Progrogi note Author Mel Telles [facility] Note Date/Time April 25, 2025 8 :53am [facility] [address] [place] [address], [address] [place] [address] OFFICE VISIT Date of Service: 04/25/25 MR#: [id number] Acct: [id number] Name: TAWANNA REYES Rep #: [id number] : 1965 Provider: Dr. Usman Telles MD Age/Sex: 59/F Location: [facility] Status: Signed Intake Vital Signs 06/13/16 12:22 04/25/25 08:37 Height 5 ft 2 in 5 ft 2 in Weight: 130 lb BMI 23.8 BP 94/69 Pulse 61 Intake Visit Reasons: 12m chronic uti Chief Complaint: 12 month UTI follow up Home Health Manager Required: No Accompanied by: Self Is patient in pain?: No Allergies Iodinated Contrast Media Allergy (Verified 04/25/25 08:35) Hives Medications ?Medication ?Instructions ?Recorded ?Confirmed ?Type ascorbate calcium (vitamin C) 500 500 mg PO QDAY 04/2504/25/25 History mg tablet cephalexin 250 mg capsule 250 mg PO .after intercourse #90 04/25/25 04/25/25 Rx caps fluconazole 150 mg tablet 150 mg PO Q3D #2 tabs 04/25/25 Rx multivitamin with iron 1 tab PO QDAY 04/25/2504/25 History omega 9-zfv-ngt-fish oil 60 mg-90 1 cap PO QDAY 04/25/25 History mg-500 mg capsule (Fish Oil) Nurse's Note: No uti since last ov, patient reports she is doing well. [facility] Medical History Ruptured tubal Surgical History History of bladder surgery History of appendectomy H/O dilation and curettage Social History Smoking Status: Never smoker alcohol intake: current substance use type: does not use what type of physical activity do you participate in: none do you feel safe at home: Yes HPI HPI Urology Chief Complaint: 12 month UTI follow up Details: TAWANNA REYES, is a 59 F. She is here for follow up urinary tract infections. She has had no infections since the last visit. She has not had hematuria since her last visit. She is taking the following prevention: none. When she feels like an infection may be starting, she has left over antibiotics and she takes one. It is after intercourse. This has worked really well for her. We discussed estrogen cream again today. She does not want to do this. ROS Const Constitutional: No chills, fatigue, fever(s), headache(s), night sweats, weakness, weight change, abnormal sleep pattern or change in appetite Eyes Eyes: No change in vision ENT ENT: No headache(s) or dry mouth Resp Respiratory: No cough, chest congestion, shortness of breath or wheezing Cardio Cardiology: Positive for other (No chest pain.); No shortness of breath, irregular heart rhythm or lightheadedness Gastro GI: Positive for other (No nausea.); No abdominal pain, change in bowel habits, constipation, diarrhea or vomiting Musc Musculoskeletal: No abnormal gait Skin Skin: No yellowing of the eye, lesions, itchy eyes, rash or skin ulcer Neuro Neurology: No abnormal gait, confusion, dizziness, weakness, headache(s) or memory loss Psych Psychiatric: No abnormal sleep pattern, No change in appetite, No confusion and No memory loss Endo Endocrine: No fatigue, increased thirst/drinking or weight change Aller/Imm Allergy/Immunologic: No itchy eyes or wheezing Evin/Lymp Hematologic/Lymphatic: No easy bleeding, easy bruising or enlarged lymph nodes Exam Const General: cooperative, healthy appearing, comfortable and no acute distress [facility] Head: normocephalic and atraumatic Ears: hearing grossly normal bilaterally and external ears normal Nose: external nose normal Eyes General: appearance normal, both eyes and all related structures Neck Neck: normal visual inspection and trachea midline Chest Chest palpation & inspection: normal inspection of the chest Resp Effort & Inspection: normal respiratory effort, able to speak in complete sentences and symmetric chest movement Cardio Rate: regular rate GI Inspection: normal to inspection Palpation: soft and nontender General: No CVA tenderness Skin General: no rashes or lesions noted Neuro General: patient alert, patient awake, patient oriented x3 and CN's II-XI intactbilaterally Extrem General: normal to inspection Psych Appearance: grossly normal and well kempt Mental Status: mental status grossly normal Results POC Urinalysis w/Micro Office Urine Color Last Edit by Ludmila Vail on 04/25/25 08:44 Office Urine Clarity Last Edit by Ludmila Vail on 04/25/25 08:44 Office Urine Glucose Negative Last Edit by Ludmila Vail on 04/25/25 08:4 4 Office Urine Ketones Negative Last Edit by Ludmila Vail on 04/25/25 08:4 4 Office Urine Bilirubin Negative Last Edit by Ludmila Vail on 04/25/25 08 :44 Office Urine Urobilinogen 0.2 mg/dL Last Edit by Ludmila Vail on 5 08:44 Off Ur Spec [place] 1.010 Last Edit by Ludmila Vail on 04/25/25 08:44 Office Urine pH 6 Last Edit by Ludmila Vail on 04/25/25 08:44 Office Urine Protein Trace Last Edit by Ludmila Vail on 04/25/25 08:44 Office Urine Blood Trace Last Edit by Ludmila Vail on 04/25/25 08:44 Office Urine Blood Hemolyzed Negative Last Edit by Ludmila Vail on 04/25 08:44 Office Urine Nitrate Negative Last Edit by Ludmila Vail on 04/25/25 08:4 4 Off Ur Leukocytes Negatve Last Edit by Ludmila Vail on 04/25/25 08:44 Off Ur WBC Microscopic Last Edit by Ludmila Vail on 04/25/25 08:44 Off Ur RBC Microscopic Last Edit by Ludmila Vail on 04/25/25 08:44 Off Ur Bacteria Microscopic Last Edit by Ludmila Vail on 04/25/25 08:44 Coding Level of Care Code Off vis,est,level 4 Diagnoses UTI (urinary tract infection) N39.0 Overactive bladder N32.81 Mixed incontinence N39.46 Atrophic vaginitis N95.2 Assessment and Plan Assessment and Plan (1) UTI (urinary tract infection): Status: Acute (2) Overactive bladder: Status: Acute (3) Mixed incontinence: Status: Acute (4) Atrophic vaginitis: Status: Acute Orders: Orders POC UA Automated w/Microscopy Today N39.0 - Urinary tract infection, site not specified Medications: New cephalexin 250 mg PO .after intercourse 90 caps 0RF fluconazole take one tab, repeat 3 days later if needed 150 mg PO Q3D 2 tabs 0RF Discontinued hydrocodone-acetaminophen 5-325 mg causes drowsiness Discontinued Reason: Pt no longer taking 1 - 2 tabs PO Q6H PRN PRN 12 TABLETS 0RF Pain Plan cephalexin after intercourse refill Diflucan for travel Plan Details Follow Up: 12 Months (UTI f/u) 04/25/25 8600 <Electronically signed by Mel Telles MD> Date _ Mel Telles MD Cosigner Signature: Date (if applicable) CC: ~ [facility] Work Phone: Reason for referral (narrative)* Diagnostic Procedure Only (Routine) - Pending Review Specialty Diagnoses / Procedures Referred By Mei vega Referred To Contact [facility] Diagnoses Encounter for screening mammogram for breast cancer Procedures MITA SCREENING W DEMETRA SCREENING DIGITAL BREAST TOMOSYNTHESIS BI SCREENING MAMMOGRAPHY BI 2-VIEW BREAST INC Terra Pearson MD [address] [place] [address] [facility] [address] [place] [address] Referral ID Status Reason Start Date Expiration Date Visits Requested Visits Authorized [id number] Pending Review Auto-Generat ed Referral 11/24/2021 12/24/2022 1 1 T [facility] for referral (narrative)* Diagnostic Procedure Only (Routine) - Pending Review Specialty Diagnoses / Procedures Referred By Mei vega Referred To Contact [facility] Diagnoses Encounter for screening mammogram for malignant neoplasm of breast Procedures MITA SCREENING W DEMETRA SCREENING DIGITAL BREAST TOMOSYNTHESIS BI SCREENING MAMMOGRAPHY BI 2-VIEW BREAST INC Cande Smith MD [address] [place] [address] [facility] [address] [place] [address] Referral ID Status Reason Start Date Expiration Date Visits Requested Visits Authorized [id number] Pending Review Auto-Generat ed Referral 12/21/2022 01/20/2024 1 1 [facility] for referral (narrative)* Diagnostic Procedure Only (Routine) - New Request Specialty Diagnoses / Procedures Referred By Mei vega Referred To Contact [facility] Diagnoses Encounter for screening mammogram for breast cancer Procedures MITA SCREENING W DEMETRA SCREENING DIGITAL BREAST TOMOSYNTHESIS BI SCREENING MAMMOGRAPHY BI 2-VIEW BREAST INC Terra Pearson MD [address] [place] [address] [facility] [address] [place] [address] Referral ID Status Reason Start Date Expiration Date Visits Requested Visits Authorized [id number] New Request Auto-Generat ed Referral 02/07/2024 03/08/2025 1 1 [facility] for referral (narrative)* Diagnostic Procedure Only (Routine) - Authorized Specialty Diagnoses / Procedures Referred By Mei vega Referred To Contact [facility] IMAGING Diagnoses Loss of height Encounter for screening for osteoporosis Asymptomatic postmenopausal status Procedures DXA-AXIAL SKELETON DXA BONE DENSITY STUDY 1/> SITES AXIAL Cande Hassan MD [address] [place] [address] [place] [address] Referral ID Status Reason Start Date Expiration Date Visits Requested Visits Authorized [id number] Authorized Auto-Generat ed Referral 4 07/31/2025 1 1 [facility] for referral (narrative)No reason for referral information availableCook[facility] Work Phone: Summary Purpose Family History No Family History Records FoundNo Family History Records FoundNo Family History Records FoundNo Family History Records FoundNo Family History Records FoundNo Family History Records FoundNo Family History Records Found Advance Directives Documents on File Type Date Recorded Patient Timber Harvester Operator Expl anation Advance Directive(s) 07/13/2018 10:33 AM Advance Directive(s) 01/25/2018 7:51 AM Documents on File Type Date Recorded Patient Timber Harvester Operator Expl anation Advance Directive(s) 07/13/2018 10:33 AM Advance Directive(s) 01/25/2018 7:51 AM Procedure Findings Note HNO ID: [id number] Author: Marine Magallon Jr. Service: (none) Author Type: Physician Type: Brief Op Note Filed: 07/13/2018 1:24 PM Note Text: BRIEF OPERATIVE / PROCEDURE NOTE LOG ID: * No surgery found * Surgery/Procedure Date: * No surgery found * Incision/Procedure Start Time: Incision Close/Procedure End Time: Surgeon(s)/Proceduralist(s) and Pigment Supplier(s): * Surgery not found * * Surgery not found * Procedure(s): cystoscopy, insertion desera mid urethral sling Anesthesia: * No surgery found * Findings: as dx suggests Estimated Blood Loss: 0 ml Specimens: None Complications: None Pre-Op/Pre-Procedure Diagnosis: stress incontinence Post-Op/Post-Procedure Diagnosis: * No surgery found * same SIGNATURE: Charles Magallon Jr, MD PATIENT NAME: @patient name@ DATE: July 13, 2018 TIME: @FNBELINDA@ PAGER/CONTACT #: [phone] Note HNO ID: [id number] Author: Marine Magallon Jr. Service: (none) Author Type: Physician Type: Brief Op Note Filed: 07/27/2018 11:18 AM Note Text: BRIEF OPERATIVE / PROCEDURE NOTE LOG ID: * No surgery found * Surgery/Procedure Date: * No surgery found * Incision/Procedure Start Time: Incision Close/Procedure End Time: Surgeon(s)/Proceduralist(s) and Pigment Supplier(s): * Surgery not found * * Surgery not found * Procedure(s): cysto, incision mid urethral sling Anesthesia: * No surgery found * Findings: as dx suggests Estimated Blood Loss: 0 ml Specimens: None Complications: None Pre-Op/Pre-Procedure Diagnosis: stress incontinence Post-Op/Post-Procedure Diagnosis: * No surgery found * same SIGNATURE: Charles Magallon Jr, MD PATIENT NAME: @patient name@ DATE: July 27, 2018 TIME: @FNBELINDA@ PAGER/CONTACT #: [phone] Chief Complaint and Reason for Visit Chief Complaint SCREENING Chief Complaint Admit Date 12m chronic uti April 25, 2025 8 :26am Reason for Visit Admit Date Atrophic vaginitis April 25, 2025 8 :26am Mixed incontinence April 25, 2025 8 :26am Overactive bladder April 25, 2025 8 :26am UTI (urinary tract infection) April 252024 8:26am Additional Source Comments INFORMATION SOURCE (unrecogn ized section and content) DATE CREATED AUTHOR 03/02/2018 [facility] DATE CREATED AUTHOR AUTHOR'S ORGANIZ ATION 03/05/2018 [facility] DATE CREATED AUTHOR AUTHOR'S ORGANIZ ATION 07/16/2018 [facility] DATE CREATED AUTHOR AUTHOR'S ORGANIZ ATION 09/29/2018 [facility] DATE CREATED AUTHOR AUTHOR'S ORGANIZ ATION 02/07/2019 [facility] DATE CREATED AUTHOR AUTHOR'S ORGANIZ ATION 04/27/2025 [facility] DATE CREATED AUTHOR AUTHOR'S ORGANIZ ATION 04/30/2025 [facility] Source Comments (unrecognize d section and content) In the event this informatio n is protected by the Federal Confidentiality of Alcohol and Drug Abuse Patient Records regulations: The Federal rules restrict any use of the information to criminally investigate or prosecute any alcohol or drug abuse patient.[facility] the event this information is protected by the Federal Confidentiality of Alcohol and Drug Abuse Patient Records regulations: The Federal rules restrict any use of the information to criminally investigate or prosecute any alcohol or drug abuse patient.[facility] Hospital[facility] the event this information is protected by the Federal Confidentiality of Alcohol and Drug Abuse Patient Records regulations: The Federal rules restrict any use of the information to criminally investigate or prosecute any alcohol or drug abuse patient.[facility] Hospital[facility] the event this information is protected by the Federal Confidentiality of Alcohol and Drug Abuse Patient Records regulations: The Federal rules restrict any use of the information to criminally investigate or prosecute any alcohol or drug abuse patient.[facility] Hospital[facility] the event this information is protected by the Federal Confidentiality of Alcohol and Drug Abuse Patient Records regulations: The Federal rules restrict any use of the information to criminally investigate or prosecute any alcohol or drug abuse patient.[facility] Hospital[facility] the event this information is protected by the Federal Confidentiality of Alcohol and Drug Abuse Patient Records regulations: The Federal rules restrict any use of the information to criminally investigate or prosecute any alcohol or drug abuse patient.[facility] HospitalIn the event this information is protected by the Federal Confidentiality of Alcohol and Drug Abuse Patient Records regulations: The Federal rules restrict any use of the information to criminally investigate or prosecute any alcohol or drug abuse patient.[facility] HospitalIn the event this information is protected by the Federal Confidentiality of Alcohol and Drug Abuse Patient Records regulations: The Federal rules restrict any use of the information to criminally investigate or prosecute any alcohol or drug abuse patient.[facility] Hospital[facility] the event this information is protected by the Federal Confidentiality of Alcohol and Drug Abuse Patient Records regulations: The Federal rules restrict any use of the information to criminally investigate or prosecute any alcohol or drug abuse patient.[facility] Hospital[facility] the event this information is protected by the Federal Confidentiality of Alcohol and Drug Abuse Patient Records regulations: The Federal rules restrict any use of the information to criminally investigate or prosecute any alcohol or drug abuse patient.[facility] Hospital[facility] the event this information is protected by the Federal Confidentiality of Alcohol and Drug Abuse Patient Records regulations: The Federal rules restrict any use of the information to criminally investigate or prosecute any alcohol or drug abuse patient.[facility] HospitalIn the event this information is protected by the Federal Confidentiality of Alcohol and Drug Abuse Patient Records regulations: The Federal rules restrict any use of the information to criminally investigate or prosecute any alcohol or drug abuse patient.[facility] HospitalIn the event this information is protected by the Federal Confidentiality of Alcohol and Drug Abuse Patient Records regulations: The Federal rules restrict any use of the information to criminally investigate or prosecute any alcohol or drug abuse patient.[facility] Reason for Visit (unrecogniz ed section and content) Reason Comments Patient Question Reason Comments Yearly Exam Reason Comments Yearly Exam Reason Comments Results Labs Reason Comments Anxiety Stress Reason Comments Anxiety Follow up Reason Comments Well Woman Reason Comments Results Mammogram done at [facility] Reason Comments Physical Care Teams (unrecognized sec tion and content) Channel Manager Relationship Specialty Start Date End Date Terra Mendoza MD [address] [place] [address] PCP - General 02/01/10 Channel Manager Relationship Specialty Start Date End Date Terra Mendoza MD [address] [place] [address] PCP - General 02/01/10 Channel Manager Relationship Specialty Start Date End Date Terra Mendoza MD [address] [place] [address] PCP - General 02/01/10 Channel Manager Relationship Specialty Start Date End Date Terra Mendoza MD [address] [place] [address] PCP - General 02/01/10 Team Status: Active Member Role Status Dates Dr. Terra Mendoza MD Family Provider Active Dr. Terra Mendoza MD Primary Care Provider Active Team Status: Inactive Member Role Status Dates Dr. Terra Mendoza MD Primary Care Provider Active Dr. Cande Gorman MD Attending Provider, Referring Provider Active Channel Manager Relationship Specialty Start Date End Date Terra Mendoza MD [address] [place] [address] PCP - General 02/01/10 Channel Manager Relationship Specialty Start Date End Date Terra Mendoza MD [address] [place] [address] PCP - General 02/01/10 Channel Manager Relationship Specialty Start Date End Date Terra Mendoza MD [address] [place] [address] PCP - General 02/01/10 Channel Manager Relationship Specialty Start Date End Date Terra Mendoza MD [address] [place] [address] PCP - General 02/01/10 Channel Manager Relationship Specialty Start Date End Date Terra Mendoza MD [address] [place] [address] PCP - General 02/01/10 Channel Manager Relationship Specialty Start Date End Date Terra Mendoza MD [address] [place] [address] PCP - General 02/01/10 Iliana Church APRN.CNP [address] [place] [address] Book Jacket Cover Machine Operator Family Medicine 06/23/24 Channel Manager Relationship Specialty Start Date End Date Terra Mendoza MD [address] [place] [address] PCP - General 02/01/10 Iliana Church APRN.ELEVATOR INS[address] [place] [address] [employer] [facility] 06/23/24 Channel Manager Relationship Specialty Start Date End Date Terra Mendoza MD [address] [place], [place] [id number] PCP - General 02/01/10 Maurilio Helms APRN.ELEVATOR INSPECTOR [address] [place] [address] [employer] [facility] 07/02/24 Channel Manager Relationship Specialty Start Date End Date Terra Mendoza MD [address] [place], [place] [id number] PCP - General 02/01/10 Maurilio Helms APRN.ELEVATOR INSPECTOR [address] [place] [address] [employer] Cover Machine Operator [facility] 07/02/24 Team Status: Active Member Role/Relationship Status Dates Dr. Terra Mendoza MD Primary care physician Active Team Status: Inactive Member Role/Relationship Status Dates Dr. Terra Mendoza MD Primary care physician Active Start: January 14, 2025 Dr. Mel Telles MD Attending physician Active Start: January 14, 2025 Team Status: Inactive Member Role/Relationship Status Dates Dr. Terra Mendoza MD Primary care physician Active Start: April 25, 2025 End: April 25, 2025 Dr. Terra Mendoza MD Referring Provider Active Start: April 25, 2025 End: April 25, 2025 Dr. Mel Telles MD Attending physician Active Start: April 25, 2025 End: April 25, 2025 Goals (unrecognized section and content) Goals may be documented in a n alternate sectionGoals may be documented in an alternate sectionGoals may be documented in an alternate section FOR RECORDS PERTAINING TO PATIENTS WHO ARE OR HAVE BEEN ENROLLED IN A CHEMICAL DEPENDENCY/SUBSTANCEABUSE PROGRAM, SOME INFORMATION MAY BE OMITTED. This clinical summary was aggregated from multiple sources. Caution should be exercised in using it in the provision of clinical care. This summary normalizes information from multiple sources, and as a consequence, information in this document may materially change the coding, format and clinical context of patient data. In addition, data may be omitted in some cases. CLINICAL DECISIONS SHOULD BE BASED ON THE PRIMARY CLINICAL RECORDS. [facility] [employer] provides no warranty or guarantee of the accuracy or completeness of information in this document.
--- NOTE | 2025-07-11 07:38 | BI_ITS ---
EXAM: SCRN MAMM (CAD)W/DEMETRA BILAT DATE: 07/11/2025 CLINICAL HISTORY: F, Age 59 y/o , SCREENING TECHNIQUE: Procedure Code: [id number] Modality: MG Procedure: SCRN MAMM (CAD)W/DEMETRA BILAT COMPARISON: Prior exam(s) dated 07/01/2024, 12/30/2022, and 12/21/2021. FINDINGS: TISSUE DENSITY: The breasts are heterogeneously dense, which may obscure small masses. Bilateral Breast Mammographic Findings: There are no suspicious masses, suspicious cluster of microcalcifications, architectural distortion or secondary signs of malignancy identified in either breast. Benign-appearing round microcalcifications are seen in both breasts. A benign macrocalcification is seen in the right breast. BI/SCRN MAMM (CAD)W/DEMETRA BILAT IMPRESSION: Benign screening mammogram OVERALL FINAL ASSESSMENT BI-RADS 2: BENIGN RECOMMENDATION: Routine annual follow-up in 1 Year Additional Recommendation none A letter with findings and recommendations will be mailed to the patient. Reading Location: [id number]
== END | disposition home or self-care (01) ==
PROVIDERS: PCP Family Medicine; Referring Provider Obstetrics & Gynecology; Visit Provider Obstetrics & Gynecology
DX: Z12.31 Encounter for screening mammogram for malignant neoplasm of breast (principal)
CPT/HCPCS: 77063; 77067